=== PATIENT | male | born 1970 | race Caucasian/White ===

== ENCOUNTER 2025-03-05 12:49 | Emergency (ER) | payer MEDICARE, SELFPAY ==
--- NOTE | ~2025-03-05 | XR_ITS ---
EXAMINATION: XR chest 2V 03/05/2025 13:28 INDICATION: Cough. Shortness of breath. Crackles COMPARISON: None FINDINGS: Cardiomediastinal silhouette is moderately enlarged. No pneumothorax. No pleural effusion. No free air under the diaphragm. No focal pulmonary consolidation. Interstitial opacities in both lungs. IMPRESSION: 1: Interstitial opacities in both lungs. Differential includes interstitial edema, interstitial pneumonia or chronic interstitial changes. No comparison studies are available. Reviewed, dictated and finalized at location A. IMPRESSION: 1: Interstitial opacities in both lungs. Differential includes interstitial ed radha, interstitial pneumonia or chronic interstitial changes. No comparison stud ies are available.
[2025-03-05 13:04] VITALS: BP 150/100; PULSE 103; RESP 20; TEMP 36.4; O2SAT 96
--- NOTE | 2025-03-05 13:08 | ED_ITS ---
HPI - SOB/Dyspnea General Chief Complaint: Upper Respiratory Infection Stated Complaint: Coughing/Sweaty/SOB Time Seen by Provider: 03/05/25 12:50 Source: patient Mode of arrival: ambulatory Limitations: no limitations History of Present Illness HPI Narrative: Glen is a 54-year-old developmentally disabled male patient presenting to the clinic today with complaints of productive cough with white phlegm, shortness of breath, wheezing, and feeling sweaty x 2 days. He reports no fevers or chills. Does have some aching in his stomach after coughing up phlegm. Does have swelling in bilateral lower extremities that is not normal for him. No history of COPD, asthma, or lung disease. States he thought he had a hole in his heart when he was a baby but no other cardiac history. He is a nonsmoker. Related Data Home Medications ?Medication ?Instructions ?Recorded ?Confirmed ?Last Taken ?Type famotidine 40 mg tablet mg 03/05/25 Unknown History metoprolol tartrate .ROUTE 03/05/25 Unknown His tory Allergies Allergy/AdvReac Type Severity Reaction Status Date / Time Sulfa (Sulfonamide Allergy Unknown Unknown Verified 03/05/25 13:09 Antibiotics) Review of Systems Review of Systems: Pertinent positives per HPI. Patient denies any fever, chills, rash, headache, visual changes, dizziness, chest pain, palpitations, nausea, vomiting, diarrhea, constipation, abdominal pain, or any urinary issues. PMFSH Comments At the time of my signature, I reviewed and agree with the nursing past medical, surgical, social, and family history. There is no relevant family history pertinent to the patient complaint. Exam Narrative: General: Well-developed, morbidly obese, in mild respiratory distress-able to speak 5-6 words in between breaths. Audible wheezing Head: Normocephalic, atraumatic Eyes: Pupils equally round and reactive to light bilaterally, EOM intact, sclera and conjunctive clear, no discharge, lids normal Ears: TMs intact and clear, ear canals clear, no drainage, grossly hearing normal. Nose: Nares patent, no discharge, no inflammation, no sinus tenderness. Mouth: Oral pharynx without lesions or masses, good dentition, MMM. Neck: Supple, trachea midline, no enlargement of anterior or posterior cervical nodes, no thyroid masses or goiter palpable. Cardio: Regular rate and rhythm, s1 and s2 normal, no murmur appreciated. Resp: Expiratory wheezing with inspiratory crackles throughout lung mercado, no rhonchi or rubs Musculoskeletal: No deformity, non-tender to palpation, grossly normal range of motion, muscle strength strong and equal, peripheral pulse strong, 2+ pitting edema in bilateral lower extremities, no cyanosis, normal gait and station Course Course Emergency Course: Portions of this record may have been created with voice recognition software. Level of Care: Express Care Visit Vital Signs Vital signs: Vital Signs Temperature 36.4 C 03/05/25 13:04 Pulse Rate 103 H 03/05/25 13:04 Respiratory Rate 20 03/05/25 13:04 Blood Pressure 150/100 H 03/05/25 13:04 Pulse Oximetry 96 03/05/25 13:04 Oxygen Delivery Room Air 03/05/25 13:04 Temperature 36.4 C 03/05/25 13:04 Pulse Rate 103 H 03/05/25 13:04 Respiratory Rate 20 03/05/25 13:04 Blood Pressure 150/100 H 03/05/25 13:04 Pulse Oximetry 96 03/05/25 13:04 Oxygen Delivery Room Air 03/05/25 13:04 Vital signs reviewed Transfer Transfered to: [facility] Transportation: Other (Private car) Transfer rationale: Shortness of breath, wheezing, crackles, bilateral lower extremity 2+ pitting edema-rule out congestive heart failure Accepting physician: Lamont Transfer comments: Transfer via private car MDM - SOB/Dyspnea MDM Narrative Medical decision making narrative: At the time of visit patient is resting comfortably on the exam table. Patient appears to be nontoxic. Complaints of productive cough with white phlegm, shortness of breath, wheezing, and feeling sweaty x 2 days. He reports no fevers or chills. Does have some aching in his stomach after coughing up phlegm. Does have swelling in bilateral lower extremities that is not normal for him. No history of COPD, asthma, or lung disease. States he thought he had a hole in his heart when he was a baby but no other cardiac history. He is a no nsmoker. COVID, influenza, chest x-ray, and hand-held neb treatment-DuoNeb ordered. On exam patient has inspiratory crackles and expiratory wheezing with productive cough with white phlegm. He is afebrile. Oxygen saturations 96% on room air-patient is able to speak 5-6 words in between taking breaths, has 2+ pitting edema in the bilateral lower extremities. Medications: Hand-held neb treatment DuoNeb given-aeration improved and patient reports breathing is easier after treatment Labs: COVID and influenza testing will were negative in the clinic today Diagnostics: Chest x-ray shows interstitial opacities in both lungs with differentials including interstitial edema, interstitial pneumonia, or chronic interstitial changes. Plan: I suspect patient likely has acute onset congestive heart failure. Patient has no lung disease history or known cardiac history other than possible hole in the heart when he was an . Recommend transfer to the emergency room for further evaluation. Patient would like to go to [facility]. Patient's brothers at bedside and will take him to [facility] via private car. Report called to Kim JULIAN at [facility] and she accepts patient for transfer. Patient's vital signs heart rate 96 and respiratory rate 24 with a oxygen saturation of 96% on room air. Will allow patient to go by private car. Differential Diagnosis Differential diagnosis: Likely acute exacerbation of chronic obstructive airways disease, congestive heart failure, community acquired pneumonia, asthma with e xacerbation and pulmonary embolism Lab Data Labs: Lab Results 03/05/25 Range/Units 13:14 POC Influenza A Ag Negative (Negative) POC Influenza B Ag Negative (Negative) POC SARS CoV-2 Ag Negative (Negative) Imaging Data Radiologist's impression: ITS Impressions Chest X-Ray 03/05/25 13:29 IMPRESSION: 1: Interstitial opacities in both lungs. Differential includes interstitial edema, interstitial pneumonia or chronic interstitial changes. No comparison studies are available. Discharge Plan Discharge Clinical Impression: Bilateral leg edema, Shortness of breath Patient Disposition: Acute Care Hospital Condition: Stable Patient Language: Tunisian Prescriptions: No Action famotidine 40 mg tablet metoprolol tartrate [Lopressor] .ROUTE Follow-up/Referrals: Shimon,Rola Holt MD [Primary Care Provider, Unknown] Time of Disposition: 14:00 Quality NIHSS Nursing Documentation ED NIHSS nursing documentation: reviewed/agree
--- OUTSIDE RECORDS SUMMARY | 2025-03-05 13:09 | XMS_ITS | Clinical Summary ---
Author Organization [facility] [address] Address [address] [place] [address] Care Team Providers Care Dealer Card Room Name Role Phone Cj Cardenas MD Primary Care Provider Allergies No known active allergies Medications losartan (COZAAR) 100 mg tablet Take 150 mg by mouth daily Active Active Problems Problem Noted Date Diagnosed Date Conductive hearing loss, bilateral 01/25/2019 Assessment & Plan (01/26/2019 8:28 AM CDT): Medically cleared for Hearing aid consultation Bilateral impacted cerumen 01/25/2019 Assessment & Plan (01/26/2019 8:28 AM CDT): Avoid ear cleaning techniques Avoid water to ears Medical History Medical History Date Comments Ear problems Tubes in childho od, problems since childhood Sleep apnea Social History Tobacco Use Types Packs/Day Years Used Date Smoking Tobacco: Never Smokeless Tobacco: Never Alcohol Use Standard Drinks/Week Comments Never 0 (1 standard drink = 0.6 oz pur e alcohol) AUDIT-C Answer Date Recorded Frequency of Alcohol Consumption Never 01/25/2019 Average Number of Drinks Not on file 019 Frequency of Binge Drinking Not on file 01/15 Personal Safety Answer Date Recorded Getting School Help Needed Not on file 09/30 Sex and Gender Information Value Date Recorded Sex Assigned at Not on file Legal Sex Male 12:23 PM [employer] Gender Identity Not on file Sexual Orientation Not on file Obstetrics History Last Filed Vital Signs Vital Sign Reading Time Taken Comments Blood Pressure 155/98 01/25/2019 1:23 PM CDT Pulse 99 01/25/2019 1:23 PM CDT Temperature 36.7 C (98.1 F) 01/25/2019 1:23 PM CDT Respiratory Rate - - Oxygen Saturation - - Inhaled Oxygen Concentration - - Weight 145.8 kg (321 lb 6.4 oz) 01/25/2019 1:23 PM CDT Height 167.6 cm (5' 6) 01/25/2019 1:23 PM CDT Body Mass Index 51.88 01/25/2019 1:23 PM CDT Plan of Treatment Not on file Insurance MEDICARE Care Teams Dealer Card Room Relationship Specialty Start Date End Date Cj Cardenas MD PCP - General Family Medicine 01/25/19
[2025-03-05] MEDS: IPRATROPIUM 0.5 MG/ALBUTEROL SULFATE 2.5 MG AMPUL.NEB 3 ML INHALATION (13:30)
[2025-03-05 13:32] LABS: EDCOVIDSCREEN Negative (Negative); EDINFLUASCREEN Negative (Negative); EDINFLUBSCREEN Negative (Negative)
[2025-03-05 13:39] VITALS: PULSE 96; RESP 24; O2SAT 96
== END 2025-03-05 13:57 | disposition short-term general hospital (02) ==
PROVIDERS: Emergency Provider Nurse Practitioner Family; PCP Family Medicine
DX: R60.0 Localized edema (principal); R06.02 Shortness of breath; Z20.822 Contact with and (suspected) exposure to COVID-19; I10 Essential (primary) hypertension; K21.9 Gastro-esophageal reflux disease without esophagitis
CPT/HCPCS: 71046; 87426; 87804; 94640; 99213; G0463

== ENCOUNTER 2025-03-05 15:33 | Inpatient (IN) | payer MEDICARE, SELFPAY ==
[2025-03-05] VITALS (34 sets, daily range): BP systolic 132–176; BP diastolic 80–136; PULSE 84–109; RESP 18–29; TEMP 36.8–37.1; O2SAT 91–100; BMI 46.9
--- NOTE | ~2025-03-05 | US_ITS ---
EXAMINATION: US Abdomen limited INDICATION: Elevated LFTs PROCEDURE: Realtime High Resolution abdomen ultrasound. COMPARISON: No prior studies for comparison FINDINGS: This study is limited due to the patient's imaging characteristics. The visualized liver is heterogeneous likely due to fatty infiltration and/or hepatocellular disease. Hepatopedal flow in the portal vein. Visualized gallbladder is unremarkable. No gallbladder wall thickening. No Fletcher's sign. Common duct measures 4 mm. The liver is heterogeneous likely due to fatty infiltration. Pancreas was not visualized. IMPRESSION: 1. Limited study as above. 2. The visualized liver is heterogeneous likely due to fatty infiltration or hepatocellular disease. Consider a liver mass CT or MRI for further assessment. Reviewed, dictated and finalized at location A. IMPRESSION: 1. Limited study as above. 2. The visualized liver is heterogeneous likely due to fatty infiltration or he patocellular disease. Consider a liver mass CT or MRI for further assessment.
--- NOTE | ~2025-03-05 | MR_ITS ---
EXAMINATION: MR abdomen wo/w con DATE: 03/09/2025 13:31 INDICATION: Possible liver mass TECHNIQUE: Magnetic resonance imaging (MRI) of the abdomen was performed without and with 20 mL Multihance intravenous contrast. Sequences included coronal T2- weighted SS-FSE, coronal and axial FS 2D-FIESTA, axial STIR FSE, axial T2- weighted SS-FSE, axial T2-weighted FS SS-FSE, axial diffusion-weighted SE, axial dual-echo T1-weighted FSPGR, and axial and coronal T1-weighted LAVA. Postcontrast axial T1-weighted LAVA images were obtained in a time course. Postcontrast coronal T1-weighted LAVA images were obtained. COMPARISON: Ultrasound dated 03/06/2025 FINDINGS: Cardiomegaly. No pericardial or pleural effusion. Hepatic steatosis. No hepatic lesions identified. Gallbladder, spleen, pancreas, bilateral adrenal glands and left kidney are normal. There are couple T2 hyperintense nonenhancing right renal cysts the largest at the lower pole measuring 1.2 cm. Visualized portions of bowels are unremarkable. Moderate thoracic and mild lumbar spondylosis. Normal bone marrow signal throughout. IMPRESSION: 1. Diffuse hepatic steatosis with no hepatic masses or other focal hepatic lesions identified. Reviewed, dictated and finalized at location A. IMPRESSION: 1. Diffuse hepatic steatosis with no hepatic masses or other focal hepatic lesi ons identified.
--- OUTSIDE RECORDS SUMMARY | 2025-03-05 15:57 | XMS_ITS | Clinical Summary ---
Author Organization [facility] Medical Office Building [address] Address [address] [place] [address] Care Team Providers Care Consulting Analyst Name Role Phone Cj Cardenas MD Primary [...] on file Legal Sex Male 12:23 PM [employer] Gender Identity Not on file Sexual Orientation [...] Not on file Insurance MEDICARE Care Teams Consulting Analyst Relationship Specialty Start Date End Date Cj Cardenas MD PCP - General Family Medicine 01/25/19
--- OUTSIDE RECORDS SUMMARY | 2025-03-05 15:57 | XMS_ITS | Clinical Summary ---
Author Organization [facility] Address [address] [place] [id number] Care Team Providers Care Superintendent Job Name Role Phone Unavailable Primary Care Provider Unavailabl e Social History Tobacco Use Types Packs/Day Years Used Date Smoking Tobacco: Never Assessed Sex and Gender Information Value Date Recorded Sex Assigned at Not on file Legal Sex Male 8:58 PM CDT Gender Identity Not on file Sexual Orientation Not on file Plan of Treatment Health Maintenance Due Date Last Done Comments Colorectal Cancer Screening Colonoscopy (10 Years) 1969 Annual Physical 1972 Hepatitis C 1987 DTaP, Tdap and Td Vaccines ( 1 - Tdap) 1988 Hepatitis B Vaccines (1 of 3 - 19+ 3-dose series) 1988 Pneumococcal Vaccine: 50+ Ye ars (1 of 1 - PCV) 2019 Zoster Vaccines (1 of 2) 2019 COVID-19 Vaccine (2023-2 5 season) 2024 Meningococcal B Vaccine Aged Out No l onger eligible based on patient's age to complete this topic Meningococcal Vaccine Aged Out No noel naun eligible based on patient's age to complete this topic RSV Immunizations Under 20 Months Aged Out No longer eligible based on patient's age to complete this topic
--- NOTE | 2025-03-05 16:01 | ECG_ITS ---
Test Date: 2025-03-05 16:15:27 Measurements Intervals [place] Rate: 94 P: 60 MT: 194 QRS: -31 QRSD: 88 T: 60 QT: 352 QTc: 442 Interpretive Statements SINUS RHYTHM WITH OCCASIONAL SUPRAVENTRICULAR PREMATURE COMPLEXES LEFT AXIS DEVIATION LOW QRS VOLTAGE IN PRECORDIAL LEADS PATTERN CONSISTENT WITH PULMONARY DISEASE BORDERLINE ST-T WAVE ABNORMALITY- HIGH LATERAL LEADS BASELINE ARTIFACT- I, II, III, AVR, AVL, AVF, V2 BORDERLINE ECG No previous ECG available for comparison Electronically Signed On 03-05-2025 16:56:57 CDT by Jaylen Thornton D.O.
[2025-03-05 17:03] LABS: Hematocrit 47.4 % (42.0-52.0); Hemoglobin 15.3 g/dL (14.0-18.0); Immature Granulocyte Percent A 0.3 % (0-0.5); Lymphocytes Absolute Auto 0.86 K/mm3 (0.9-3.2); Mean Corpuscular HGB Conc 32.3 g/dl (32-36); Mean Corpuscular Hemoglobin 29.0 pg (26-34); Mean Corpuscular Volume 89.8 fl (80-100); Nucleated Red Blood Cells Absolute Auto 0.000 K/mm3 (0.0-0.012); Nucleated Red Blood Cells Perc 0.0 % (0.0-0.2); Platelet Count Result 196 k/mm3 (150-375); Red Blood Count 5.28 M/mm3 (4.6-6.20); White Blood Count 6.7 K/mm3 (4.5-10.0)
[2025-03-05 17:15] LABS: Alanine Aminotransferase 59 U/L (6-50); Albumin Level 4.0 g/dL (3.5-5.1); Alkaline Phosphatase 65 U/L (38-126); Anion Gap 6 mmol/L (4-12); Aspartate Amino Transferase 50 U/L (17-59); Bilirubin,Total 0.7 mg/dL (0.2-1.3); Blood Urea Nitrogen 16 mg/dL (9-20); Calcium 8.7 mg/dL (8.4-10.2); Carbon Dioxide 28 mmol/L (22-30); Chloride 102 mmol/L (98-107); Estimated CRCL calculation 124 ml/min; Estimated Glomerular Filt Rate > 60; Glucose 130 mg/dL (65-110); Potassium 4.1 mmol/L (3.4-5.0); Sodium 136 mmol/L (137-145); Total Protein 7.6 g/dL (6.3-8.2)
[2025-03-05 17:21] LABS: INR 1.1; Partial Thromboplastin Time 25.3 Seconds (22.3-36.8); Prothrombin Time 14.0 Seconds (11.1-14.7)
--- NOTE | 2025-03-05 17:55 | ED.SOB ---
HPI - SOB/Dyspnea General Chief Complaint: Shortness of Breath/Dyspnea Stated Complaint: SOB Time Seen by Provider: 03/05/25 16:10 History of Present Illness HPI Narrative: This is a 54-year-old male with history of hypertension, CHF who presents to the ED for shortness of breath. Patient states that for the past 3-4 days, he has been having worsening dyspnea on exertion. He states that the stairs that he walks every day multiple times a day becoming increasingly difficult to the point where he has had to stop transient sweat and out of breath. Family at bedside states that they noticed that his lips became cyanotic during this as well. Denies fevers, chills, chest pain. Also noticed some worsening bilateral leg swelling. Patient is a nonsmoker. Related Data Home Medications ?Medication ?Instructions ?Recorded ?Confirmed ?Last Taken ?Type famotidine 40 mg tablet mg 03/05/25 Unknown History metoprolol tartrate .ROUTE 03/05/25 Unknown History Allergies Allergy/AdvReac Type Severity Reaction Status Date / Time Sulfa (Sulfonamide Allergy Unknown Unknown Verified 03/05/25 13:09 Antibiotics) Review of Systems Review of Systems: Gen.: Denies fevers or chills Eyes: Denies eye pain or visual change ENT: Denies congestion Respiratory: As per HPI CV: Denies chest pain or palpitations GI: Denies abdominal pain nausea, emesis or diarrhea denies burning, urgency, frequency or hematuria Musculoskeletal: Denies back pain or muscle pain Neuro: Denies numbness, tingling, weakness or focal weakness Skin: Denies rash Except as documented, all other systems reviewed and negative Exam Narrative: APPEARANCE: No acute distress, nontoxic, resting in bed EYES: EOMI HEENT: Normocephalic, atraumatic, OMM RESPIRATORY: Expiratory wheezes throughout, diminished breath sounds on the right compared to the left. CARDIOVASCULAR: Regular rate and rhythm without murmurs rubs or gallops. ABDOMINAL: Soft, nontender, nondistended, no rebound or guarding MUSCULOSKELETAl: Moves all extremities. 2+ pitting edema to the bilateral lower extremities. NEURO: Awake and alert. Following commands, speech normal, no focal deficits SKIN:: Warm, dry. No rashes lesions or abrasions PSYCHIATRIC: Normal affect/mood, Course Vital Signs Vital signs: Vital Signs Temperature 98.7 F 03/05/25 15:43 Pulse Rate 101 H 03/05/25 15:43 Respiratory Rate 20 03/05/25 15:43 Blood Pressure 163/97 H 03/05/25 15:43 Pulse Oximetry 98 03/05/25 15:43 Oxygen Delivery Room Air 03/05/25 15:43 Temperature 98.3 F 03/05/25 20:43 Pulse Rate 91 03/05/25 20:43 Respiratory Rate 23 H 03/05/25 20:43 Blood Pressure 153/85 H 03/05/25 20:43 Pulse Oximetry 94 03/05/25 20:43 Oxygen Delivery Room Air 03/05/25 16:16 MDM - SOB/Dyspnea MDM Narrative Medical decision making narrative: 54-year-old male presents to the ED for shortness of breath. On initial evaluation, he was slightly tachycardic at 101, remaining vital signs stable he had significant wheezing throughout. He did have 2+ pitting edema. Chest x-ray showed pulmonary vascular congestion. BNP elevated 2400. He was given 40 mg Lasix IV. He was given a DuoNeb with improvement of his wheezing. EKG showed no concerning findings. Patient was ambulated and his pulse ox did drop to 92. Initial troponin elevated at 0.09. He will require admission for further cardiac evaluation. Discussed case with hospitalist who will admit the patient. Differential Diagnosis Differential diagnosis: Likely congestive heart failure, community acquired pneumonia and asthma with exacerbation Lab Data Attestation: I reviewed the patient's lab results. 03/05/25 16:19 03/05/25 16:19 Labs: Lab Results 03/05/25 03/05/25 03/05/25 Range/Units 16:19 16:19 20:27 WBC 6.7 (4.5-10.0) K/mm3 RBC 5.28 (4.6-6.20) M/mm3 Hgb 15.3 (14.0-18.0) g/dL Hct 47.4 (42.0-52.0) % MCV 89.8 (80-100) fl MCH 29.0 (26-34) pg MCHC 32.3 (32-36) g/dl RDW 14.9 H (11.5-14.5) % Plt Count 196 (150-375) k/mm3 MPV 10.6 H (7.4-10.4) fl Immature Gran % (Auto) 0.3 (0-0.5) % Neut % (Auto) 76.2 H (45.5-73.1) % Lymph % (Auto) 12.8 L (18.3-44.2) % [place] % (Auto) 9.7 H (2.6-8.5) % Eos % (Auto) 0.6 (0-4.4) % Baso % (Auto) 0.4 (0.2-1.2) % Lymph # (Auto) 0.86 L (0.9-3.2) K/mm3 [place] # (Auto) 0.7 H (0.1-0.6) K/mm3 Eos # (Auto) 0.0 (0-0.3) K/mm3 Baso # (Auto) 0.0 (0.0-0.1) K/mm3 Abs Immat Gran (auto) 0.02 (0.00-0.031) K/mm3 Absolute Neuts (auto) 5.1 (1.3-6.7) K/mm3 Absolute Nucleated RBC 0.000 (0.0-0.012) K/mm3 Nucleated RBC % 0.0 (0.0-0.2) % PT 14.0 (11.1-14.7) Seconds INR 1.1 APTT 25.3 (22.3-36.8) Seconds Sodium 136 L (137-145) mmol/L Potassium 4.1 (3.4-5.0) mmol/L Chloride 102 (98-107) mmol/L Carbon Dioxide 28 (22-30) mmol/L Anion Gap 6 (4-12) mmol/L BUN 16 (9-20) mg/dL Creatinine 0.83 (0.7-1.3) mg/dL Estim Creat Clear Calc 124 ml/min Estimated GFR > 60 (59 - ) Glucose 130 H (65-110) mg/dL Calcium 8.7 (8.4-10.2) mg/dL Total Bilirubin 0.7 (0.2-1.3) mg/dL AST 50 (17-59) U/L ALT 59 H (6-50) U/L Alkaline Phosphatase 65 (38-126) U/L Troponin I 0.098 H* 0.119 H* D (0.000-0.034) ng/mL NT-Pro-B Natriuret Pep 2430 H Cancelled (19.9-100) pg/mL Total Protein 7.6 (6.3-8.2) g/dL Albumin 4.0 (3.5-5.1) g/dL ECG Data EKG #1: ECG completion date: 03/05/25 ECG completion time: 16:15 Interpretation: Normal sinus rhythm rate of 94, left axis deviation, no ST or T-wave changes. Discharge Plan Discharge Clinical Impression: Acute hypoxic respiratory failure, Elevated troponin, Morbid obesity CHF (congestive heart failure) Qualifiers: Heart failure type: unspecified Heart failure chronicity: unspecified Qualified Code(s): I50.9 - Heart failure, unspecified Patient Disposition: Still a Patient Condition: Stable
[2025-03-05 18:02] LABS: NT Pro B Type Natriuretic Pept 2430 pg/mL (19.9-100)
[2025-03-05] MEDS: IPRATROPIUM 0.5 MG/ALBUTEROL SULFATE 2.5 MG AMPUL.NEB 3 ML INHALATION (18:04)
[2025-03-05] MEDS: FUROSEMIDE INJ 40 MG/4 ML VIAL IV PUSH (18:56)
--- NOTE | 2025-03-05 20:24 | ECG_ITS ---
Test Date: 2025-03-05 20:29:50 Measurements Intervals [place] Rate: 90 P: 36 [place]: 187 QRS: -25 QRSD: 85 T: 62 QT: 366 QTc: 450 Interpretive Statements SINUS RHYTHM LOW QRS VOLTAGE IN PRECORDIAL LEADS PATTERN CONSISTENT WITH PULMONARY DISEASE BORDERLINE ST-T WAVE ABNORMALITY- HIGH LATERAL LEADS BORDERLINE ECG Compared to ECG 03/05/2025 16:15:27 NO SIGNIFICANT CHANGE Electronically Signed On 03-06-2025 06:11:41 CDT by Jaylen Thornton D.O.
[2025-03-05 20:28] LABS: Troponin I 0.098 ng/mL (0.000-0.034)
[2025-03-05 20:58] LABS: Troponin I 0.119 ng/mL (0.000-0.034)
[2025-03-05] MEDS: ENOXAPARIN 40 MG/0.4 ML SYRINGE SUB-Q (21:07)
[2025-03-05 21:40] LABS: Influenza A QL RT-PCR Negative (Negative); Influenza B QL RT-PCR Negative (Negative); RSV RNA, RT-PCR Negative (Negative); SARS-CoV-2 RNA PCR Negative (Negative)
--- NOTE | 2025-03-05 22:23 | ADMGEN ---
This patient, Ady Gr, was admitted to IMU Room 201-01 at 2205. Patient/family oriented to hospital policies and general routines including ID bracelet, bed and alarms, visiting hours, pain management, procedures, bathroom and other care routines, personal items, smoking policy, room service/diet, and visiting hours. Information on how to activate the Rapid Response Team has been discussed. Patient/Family are encouraged to report perceived risks to care and to ask questions if they do not understand what they are told or what they should do.
[2025-03-05 23:54] LABS: Troponin I 0.120 ng/mL (0.000-0.034)
[2025-03-06] VITALS (26 sets, daily range): BP systolic 116–156; BP diastolic 71–88; PULSE 67–98; RESP 17–24; TEMP 36.4–37.4; O2SAT 92–97
--- NOTE | 2025-03-06 | ECHO_ITS ---
Patient Info Name: Ady Gr Age: 54 years : 1970 Gender: Male Ht: 68 in Wt: 307 lbs BSA: 2.66 m2 HR: 88 bpm BP: 156 / 88 mmHg Technical Quality: Good Exam Date: 03/06/2025 8:36 AM Patient Status: I Admit Date: 03/05/2025 Exam Type: CA echo dop color flow w con Complete two-dimensional, color flow and Doppler transthoracic echocardiogram is performed with contrast to opacify the left ventricle and to improve the deliniation of the left ventricle endocardial borders. Staff Referring Physician: Dat Rodriguez MD Trench Digging Machine Operator: Samara Browning Attending Provider: Alma Rosa Isabel DO Contrast/Agitated Saline Contrast/Ag. Saline: Definity Amount: 2.00 ml Administered By: Samara Browning Existing IV Access: Yes IV Access Condition: patent with no signs of infiltration Summary 1. Left ventricular systolic function is normal, estimated at 45%. 2. technically difficult study. Left Ventricle Left ventricular chamber dimension is normal. Left ventricular systolic function is normal, estimated at 45%. There is no increased left ventricular wall thickness. Left ventricular septal wall motion is normal. The left ventricular diastolic function is abnormal. Right Ventricle Right ventricular chamber dimension is normal. Right ventricular systolic function is normal. Left Atria Left atrial chamber dimension is normal. Right Atria Right atrial chamber dimension is normal. Aortic Valve The aortic valve is trileaflet. There is no aortic valve sclerosis. There is no aortic valve stenosis. There is no aortic valve regurgitation. Pulmonic Valve The pulmonic valve is normal. There is no pulmonic valve stenosis. There is no pulmonic regurgitation. Mitral Valve The mitral valve has normal leaflets. There is no mitral valve stenosis. There is no mitral valve regurgitation. Tricuspid Valve The tricuspid valve leaflets are normal. There is no significant tricuspid valve stenosis. There is no tricuspid valve regurgitation. Pericardium/Pleural The pericardium appears normal. There is no pericardial effusion. Inferior Vena Cava Not well visualized inferior vena cava. Aorta The aortic root size at the sinus of Valsalva is normal. The prox ascending aorta size is normal. Left Ventricular Outflow Tract Name Value Normal LVOT 2D LVOT Diameter 2.0 cm LVOT Doppler LVOT Peak Velocity 94 cm/s LVOT Peak Gradient 4 mmHg LVOT Mean Gradient 2 mmHg LVOT VTI 21 cm LVOT Stroke Volume 67 ml LVOT CO 5.9 l/min LVOT CI 2.2 l/min/m2 Pulmonic Valve Name Value Normal RVOT Doppler RVOT Peak Velocity 70 cm/s RVOT Peak Gradient 2 mmHg PV Doppler PV Peak Velocity 97 cm/s PV Peak Gradient 4 mmHg Mitral Valve Name Value Normal MV Diastolic Function MV E Peak Velocity 74 cm/s MV A Peak Velocity 81 cm/s MV E/A 0.9 MV Decel Time (PW) 280 ms MV Annular TDI MV E/e' (Septal) 6.6 MV E/e' (Lateral) 8.3 MV E/e' (Average) 7.5 Aortic Valve Name Value Normal AV Doppler AV Peak Velocity 147 cm/s AV Peak Gradient 9 mmHg AV Area (Cont Eq Eirk) 2.1 cm2 AV DI (Erik) 0.64 AV Regurgitation 2D LVOT Area 3.2 cm2 Ventricles Name Value Normal LV Dimensions 2D/MM IVS Diastolic Thickness (2D) 0.9 cm 0.6-1.0 LVID Diastole (2D) 5.6 cm 4.2-5.8 LVIW Diastolic Thickness (2D) 1.2 cm 0.6-1.0 LVID Systole (2D) 4.4 cm 2.5-4.0 LVOT Diameter 2.0 cm LV Mass (2D Cubed) 229.18 g 88.00-224.00 LV Mass Index (2D Cubed) 86 g/m2 49-115 Relative Wall Thickness (2D) 0.41 <=0.42 LV Fractional Shortening/Ejection Fraction 2D/MM LV Fractional Shortening (2D) 20 % 25-43 LV EF (2D Teichholz) 41 % LV Diastolic Volume (4C MOD) 161 ml LV EF (4C MOD) 47 % LV Diastolic Volume (2C MOD) 139 ml LV EF (2C MOD) 46 % LV Diastolic Volume (BP MOD) 152 ml 62-150 LV Diastolic Volume Index (BP MOD) 57 ml/m2 34-74 LV Systolic Volume (BP MOD) 82 ml 21-61 LV Systolic Volume Index (BP MOD) 31 ml/m2 11-31 LV EF (BP MOD) 46 % 52-72 LV Diastolic Length (4C) 8.6 cm LV Systolic Length (4C) 7.4 cm LV Stroke Volume (4C MOD) 76 ml Atria Name Value Normal LA Dimensions LA Volume (4C A-L) 49 ml LA Volume (BP A-L) 37 ml RA Dimensions RA Systolic Major [place] Length (4C) 4.3 cm 2.1-2.7 RA Area (4C) 13.6 cm2 <=18.0 Report Signatures
[2025-03-06 03:50] LABS: Anion Gap 5 mmol/L (4-12); Blood Urea Nitrogen 17 mg/dL (9-20); Calcium 8.5 mg/dL (8.4-10.2); Carbon Dioxide 31 mmol/L (22-30); Chloride 101 mmol/L (98-107); Estimated CRCL calculation 103 ml/min; Estimated Glomerular Filt Rate > 60; Glucose 127 mg/dL (65-110); HDL Direct 35 mg/dL; Magnesium 2.2 mg/dL (1.6-2.3); Potassium 3.9 mmol/L (3.4-5.0); Sodium 137 mmol/L (137-145); Triglycerides 151 mg/dL (<150)
[2025-03-06 04:21] LABS: Thyroid Stimulating Hormone Reflex 2.290 uIU/mL (0.465-4.68)
[2025-03-06 04:40] LABS: Cholesterol 339 mg/dL (0-200)
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
[2025-03-06] MEDS: ASPIRIN 81 MG CHEWABLE TABLET PO (09:24)
[2025-03-06] MEDS: LOSARTAN POTASSIUM 100 MG TABLET PO (09:25)
[2025-03-06] MEDS: FAMOTIDINE 20 MG TABLET 40 MG PO (09:25)
[2025-03-06] MEDS: ENOXAPARIN 40 MG/0.4 ML SYRINGE SUB-Q ×2 (09:26→20:30)
[2025-03-06] MEDS: FUROSEMIDE INJ 40 MG/4 ML VIAL IV PUSH ×2 (09:35→17:28)
[2025-03-06] MEDS: IPRATROPIUM 0.5 MG/ALBUTEROL SULFATE 2.5 MG AMPUL.NEB 3 ML INHALATION ×3 (10:13→19:55)
[2025-03-06] MEDS: PERFLUTREN LIPID MICROSPHERES 1.5 ML VIAL DILUTED TO 10 ML TOTAL VOLUME IV PUSH (10:49)
--- NOTE | 2025-03-06 10:49 | IVDEFINITY ---
Prior to administration of IV Definity the patient was educated on the risks and benefits of the imaging enhancing agent including potential adverse side effects. The patient verbalized understanding. Allergies were verified. No exclusion criteria were identified and at least one of the following inclusion criteria were met: 1) physician request, 2) patient technically difficult to image (per the [place] [employer] guidelines of two or more segments not discernable within the apical view), or 3) questionable left ventricular function. ?
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
[2025-03-07] VITALS (28 sets, daily range): BP systolic 106–154; BP diastolic 63–99; PULSE 60–119; RESP 16–29; TEMP 36.4–36.8; O2SAT 92–98
--- NOTE | 2025-03-07 03:17 | ECG_ITS ---
Test Date: 2025-03-07 03:23:43 Measurements Intervals [place] Rate: 119 P: 0 IA: 0 QRS: -25 QRSD: 89 T: 52 QT: 327 QTc: 461 Interpretive Statements ATRIAL FIBRILLATION WITH RAPID VENTRICULAR RESPONSE LOW QRS VOLTAGE IN PRECORDIAL LEADS PATTERN CONSISTENT WITH PULMONARY DISEASE NONSPECIFIC ST-T WAVE ABNORMALITY- HIGH LATERAL LEADS BASELINE ARTIFACT- I, II, III, AVR, AVL, AVF ABNORMAL ECG Compared to ECG 03/05/2025 20:29:50 Sinus rhythm no longer present Electronically Signed On 03-07-2025 05:39:05 CDT by Jaylen Thornton D.O.
--- NOTE | 2025-03-07 03:29 | PM.EVENT ---
Event Note Event Note Event Note: I am notified by RN that pt has developed findings of A-fib, confirmed by EKG. Pt has no known hx of A-fib. He is currently anticoagulated on Lovenox and new consult for Cardiology is placed as well as initiation of Metoprolol Succinate 25 mg daily with first dose now.
[2025-03-07] MEDS: METOPROLOL SUCCINATE EXT REL 25 MG TABCR PO (03:40)
[2025-03-07 04:01] LABS: Hematocrit 48.2 % (42.0-52.0); Hemoglobin 14.7 g/dL (14.0-18.0); Mean Corpuscular HGB Conc 30.5 g/dl (32-36); Mean Corpuscular Hemoglobin 28.1 pg (26-34); Mean Corpuscular Volume 92.0 fl (80-100); Platelet Count Result 157 k/mm3 (150-375); Red Blood Count 5.24 M/mm3 (4.6-6.20); White Blood Count 7.0 K/mm3 (4.5-10.0)
[2025-03-07 04:34] LABS: Anion Gap 6 mmol/L (4-12); Blood Urea Nitrogen 21 mg/dL (9-20); Calcium 8.5 mg/dL (8.4-10.2); Carbon Dioxide 27 mmol/L (22-30); Chloride 99 mmol/L (98-107); Estimated CRCL calculation 100 ml/min; Estimated Glomerular Filt Rate > 60; Glucose 107 mg/dL (65-110); Magnesium 2.6 mg/dL (1.6-2.3); Potassium 4.1 mmol/L (3.4-5.0); Sodium 132 mmol/L (137-145)
[2025-03-07] MEDS: IPRATROPIUM 0.5 MG/ALBUTEROL SULFATE 2.5 MG AMPUL.NEB 3 ML INHALATION ×3 (07:54→20:04)
[2025-03-07] MEDS: ASPIRIN 81 MG CHEWABLE TABLET PO (09:39)
[2025-03-07] MEDS: FUROSEMIDE INJ 40 MG/4 ML VIAL IV PUSH ×2 (09:39→16:41)
[2025-03-07] MEDS: LOSARTAN POTASSIUM 100 MG TABLET PO (09:39)
[2025-03-07] MEDS: FAMOTIDINE 20 MG TABLET 40 MG PO (09:39)
[2025-03-07] MEDS: ENOXAPARIN 40 MG/0.4 ML SYRINGE SUB-Q (09:39)
--- NOTE | 2025-03-07 10:06 | P.CONCA_ITS ---
Assessment and Plan Assessment and plan (1) Atrial fibrillation: Code(s): I48.91 - Unspecified atrial fibrillation Status: Acute Plan [place] 54-year-old male with a past medical history of intellectual disability, morbid obesity, obstructive sleep apnea with CPAP, GERD and essential hypertension 1. HTN 2. PAF/Flutter --- CHADSVASC 2 3. Morbid Obesity 4. ALETHA - Continue Toprol-Xl at the current dose - Echo to assess LV/RV size and function - Consider therapeutic anticoagulation switch to a DOAC - Continue current diuresis, difficult to assess intravascular status. Will diurese based on IVC size on echo and renal labs History of Present Illness History of Present Illness Consult date/time: 03/07/25 10:06 Reason For Visit: CHF, Elevated troponin Narrative: Ms Ady Gr is a [place] 54-year-old male with a past medical history of intellectual disability, morbid obesity, obstructive sleep apnea with CPAP, GERD and essential hypertension. he is admitted with suspected bronchitis/CHF/ Cardiology consulted for new onset afib. he was started on beta kong Currently in NSR at the time of my evaluation Review of Systems 2 Review of Systems: 12 systems were reviewed with pertinent positives and negatives per HPI. Except as documented in the HPI, all other systems were reviewed and are negative. 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 Morbid obesity with BMI of 45.0-49.9, adult Surgical History Surgical History (Updated 03/06/25 @ 09:14 by Alma Rosa Isabel DO) History of ear surgery Tubes bilaterally years Family History Family History Father Myocardial infarct Mother Cancer Social History Social History Smoking status: Never smoker Alcohol intake: never Substance use: never Lack of Transportation: No Lack of Food: Never True Current Housing: I Have Housing Concerned About Future Housing: No Difficulty Paying Gas/Electric Bills: No Difficulty Paying for Meds: No Currently Unemployed: No Education: High School Diploma/GED Difficulty w/ Childcare or Family Care: No Spiritual care concerns: No Meds Home Medications and Allergies Home Medications ?Medication ?Instructions ?Recorded ?Confirmed ?Type famotidine 40 mg tablet 40 mg PO DAILY 03/05/2502/15 History losartan 100 mg tablet 100 mg PO DAILY 03/05/25 History Allergies Allergy/AdvReac Type Severity Reaction Status Date / Time Sulfa (Sulfonamide Allergy Unknown Unknown Verified 03/05/25 22:37 Antibiotics) Vital Signs Vital Signs - 24 hr 03/06/25 10:13 03/06/25 10:20 03/06/25 12:00 Temperature 36.9 C Pulse Rate 71 86 86 Respiratory Rate 24 H 24 H 24 H Blood Pressure 148/86 H Pulse Oximetry 93 Oxygen Delivery Fraction of Inspired Oxygen 03/06/25 12:00 03/06/25 12:00 03/06/25 13:24 Temperature Pulse Rate 77 84 Respiratory Rate 20 Blood Pressure Pulse Oximetry Oxygen Delivery Room Air Fraction of Inspired Oxygen 03/06/25 13:34 03/06/25 14:00 03/06/25 16:00 Temperature Pulse Rate 78 96 Respiratory Rate 20 Blood Pressure Pulse Oximetry Oxygen Delivery Room Air Fraction of Inspired Oxygen 03/06/25 16:00 03/06/25 16:00 03/06/25 18:00 Temperature 36.4 C Pulse Rate 97 77 82 Respiratory Rate 22 H Blood Pressure 132/77 Pulse Oximetry 94 Oxygen Delivery Fraction of Inspired Oxygen 03/06/25 19:22 03/06/25 19:55 03/06/25 19:58 Temperature 37.0 C Pulse Rate 88 67 67 Respiratory Rate 17 20 20 Blood Pressure 116/73 Pulse Oximetry 97 95 Oxygen Delivery Room Air Fraction of Inspired Oxygen 03/06/25 20:00 03/06/25 20:04 03/06/25 20:30 Temperature Pulse Rate 77 70 70 Respiratory Rate 20 20 Blood Pressure Pulse Oximetry 95 Oxygen Delivery Room Air Fraction of Inspired Oxygen 03/06/25 22:00 03/06/25 22:23 03/06/25 23:00 Temperature Pulse Rate 87 86 Respiratory Rate 18 Blood Pressure Pulse Oximetry 95 93 Oxygen Delivery Room Air Room Air Fraction of Inspired Oxygen 03/06/25 23:24 03/07/25 00:00 03/07/25 02:00 Temperature 36.9 C Pulse Rate 86 65 75 Respiratory Rate 18 Blood Pressure 131/74 Pulse Oximetry 93 Oxygen Delivery Fraction of Inspired Oxygen 03/07/25 03:30 03/07/25 03:40 03/07/25 03:41 Temperature 36.6 C Pulse Rate 119 H 119 H 119 H Respiratory Rate 20 20 Blood Pressure 152/99 H Pulse Oximetry 93 93 Oxygen Delivery Room Air Fraction of Inspired Oxygen 03/07/25 04:00 03/07/25 05:56 03/07/25 07:52 Temperature Pulse Rate 102 H 89 63 Respiratory Rate 16 Blood Pressure Pulse Oximetry Oxygen Delivery Fraction of Inspired Oxygen 03/07/25 07:55 03/07/25 08:00 03/07/25 08:00 Temperature 36.5 C Pulse Rate 76 Respiratory Rate 22 H Blood Pressure 154/83 H Pulse Oximetry 94 94 Oxygen Delivery Room Air Room Air Fraction of Inspired Oxygen Exam 2 Narrative: Morbidly obese Patient is comfortable, NAD HEENT: eyes are clear and none icteric LUNGS:CTA HEART: RR S1S2 ABD: BS+, Soft and nontender Lower extremities: no edema SKIN: nonjaundiced Neuro: grossly intact. Results Labs and Meds 03/07/25 03:35 03/07/25 03:35 Lab results: CBC 03/07/25 Range/Units 03:35 WBC 7.0 (4.5-10.0) K/mm3 RBC 5.24 (4.6-6.20) M/mm3 Hgb 14.7 (14.0-18.0) g/dL Hct 48.2 (42.0-52.0) % Plt Count 157 (150-375) k/mm3 Comprehensive Metabolic Panel 03/07/25 Range/Units 03:35 Sodium 132 L (137-145) mmol/L Potassium 4.1 (3.4-5.0) mmol/L Chloride 99 (98-107) mmol/L Carbon Dioxide 27 (22-30) mmol/L BUN 21 H (9-20) mg/dL Creatinine 1.01 (0.7-1.3) mg/dL Glucose 107 (65-110) mg/dL Calcium 8.5 (8.4-10.2) mg/dL Intake and Output 03/06/25 03/07/25 03/07/25 23:59 07:59 15:59 Intake Total 440 Output Total 150 450 Balance 290 -450 Intake: Oral 440 Output: Urine 150 450 Other: # Unmeasured Voids 2 Number of Bowel Movements Today 1 Patient Weight 03/07/25 23:59 Weight 144 kg
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
[2025-03-07] MEDS: ENOXAPARIN 100 MG/ML SYRINGE SUB-Q (16:38)
[2025-03-07] MEDS: ENOXAPARIN 60 MG/0.6 ML SYRINGE 44 MG SUB-Q (16:38)
[2025-03-07] MEDS: CYCLOBENZAPRINE HCL 5 MG TABLET PO (23:10)
[2025-03-07 23:26] LABS: Anion Gap 7 mmol/L (4-12); Blood Urea Nitrogen 28 mg/dL (9-20); Calcium 8.7 mg/dL (8.4-10.2); Carbon Dioxide 32 mmol/L (22-30); Chloride 97 mmol/L (98-107); Estimated CRCL calculation 87 ml/min; Estimated Glomerular Filt Rate > 60; Glucose 110 mg/dL (65-110); Magnesium 2.1 mg/dL (1.6-2.3); Potassium 3.6 mmol/L (3.4-5.0); Sodium 136 mmol/L (137-145)
[2025-03-08] VITALS (26 sets, daily range): BP systolic 112–147; BP diastolic 71–90; PULSE 60–99; RESP 15–24; TEMP 36.6–37.1; O2SAT 93–100
[2025-03-08 04:13] LABS: Hematocrit 48.2 % (42.0-52.0); Hemoglobin 15.2 g/dL (14.0-18.0); Mean Corpuscular HGB Conc 31.5 g/dl (32-36); Mean Corpuscular Hemoglobin 29.1 pg (26-34); Mean Corpuscular Volume 92.3 fl (80-100); Platelet Count Result 151 k/mm3 (150-375); Red Blood Count 5.22 M/mm3 (4.6-6.20); White Blood Count 6.2 K/mm3 (4.5-10.0)
[2025-03-08 04:25] LABS: Anion Gap 8 mmol/L (4-12); Blood Urea Nitrogen 25 mg/dL (9-20); Calcium 8.5 mg/dL (8.4-10.2); Carbon Dioxide 29 mmol/L (22-30); Chloride 98 mmol/L (98-107); Estimated CRCL calculation 102 ml/min; Estimated Glomerular Filt Rate > 60; Glucose 111 mg/dL (65-110); Magnesium 2.4 mg/dL (1.6-2.3); Potassium 3.8 mmol/L (3.4-5.0); Sodium 135 mmol/L (137-145)
[2025-03-08] MEDS: IPRATROPIUM 0.5 MG/ALBUTEROL SULFATE 2.5 MG AMPUL.NEB 3 ML INHALATION ×3 (07:40→20:04)
[2025-03-08] MEDS: ENOXAPARIN 60 MG/0.6 ML SYRINGE 44 MG SUB-Q (08:44)
[2025-03-08] MEDS: ENOXAPARIN 100 MG/ML SYRINGE SUB-Q (08:44)
[2025-03-08] MEDS: METOPROLOL SUCCINATE EXT REL 25 MG TABCR PO (08:45)
[2025-03-08] MEDS: ASPIRIN 81 MG CHEWABLE TABLET PO (08:45)
[2025-03-08] MEDS: LOSARTAN POTASSIUM 100 MG TABLET PO (08:45)
[2025-03-08] MEDS: FAMOTIDINE 20 MG TABLET 40 MG PO (08:45)
[2025-03-08] MEDS: FUROSEMIDE INJ 40 MG/4 ML VIAL IV PUSH ×2 (08:46→17:56)
--- NOTE | 2025-03-08 10:46 | P.PNCA_ITS ---
<Statement entered by Dylan Michael MD - 03/08/25 14:26> The patient was seen independently by the nurse practitioner. I was available in the hospital if needed Progress Note: A&P Assessment and Plan (1) Atrial fibrillation: Code(s): I48.91 - Unspecified atrial fibrillation Status: Acute Plan Pleasant 54-year-old male with a past medical history of intellectual disability, morbid obesity, obstructive sleep apnea with CPAP, GERD and essential hypertension 1. HTN 2. PAF/Flutter --- CHADSVASC 2 3. Morbid Obesity 4. ALETHA - Continue Toprol-Xl at the current dose - Echo showed moderately reduced LVEF, 45%. Technically difficult study with limited views. - CHADs2 Vasc score of 2, will shift from lovenox to DOAC - apixaban 5mg b.i.d. - Continue furosemide 40mg IV b.i.d. today, perhaps shift to p.o. tomorrow Subjective Date/time seen: 03/08/25 10:46 Interval history: Cardiology follow up visit Date of service 03/08/2025: Does not have any complaints at the time of my visit. Denies palpitations, chest pain, shortness of breath. Review of Systems Review of Systems: 12 systems were reviewed with pertinent positives and negatives per HPI. Except as documented in the HPI, all other systems were reviewed and are negative. Exam Const: General: comfortable, no acute distress, alert and awake Orientation/consciousness: patient oriented x3 HENMT: Head: normal to inspection Eyes: General: appearance normal, both eyes and all related structures Pupils: Equal, round and reactive pupils present Neck: Neck: normal visual inspection and supple Resp: Effort & Inspection: normal respiratory effort Auscultation: clear to auscultation bilaterally and diminished lung sounds Cardio: Rate: regular rate Rhythm: regular rhythm Heart sounds: S1 normal heart sound present, S2 normal heart sound present and no murmurs GI: Auscultation: normal bowel sounds Skin: General skin exam: normal color Neuro: General: patient oriented x3 Cranial nerves: Yes Equal, round and reactive pupils present Extrem: General: normal to inspection and edema (pedal edema) Psych: Appearance: grossly normal Mental Status: mental status grossly normal Objective Data Vital Signs Vital Signs: Vital Signs - 24 hr 03/07/25 12:00 03/07/25 12:00 03/07/25 13:15 Temperature 36.4 C L Pulse Rate 60 110 H 94 Respiratory Rate 18 18 Blood Pressure 127/91 H Pulse Oximetry 95 Oxygen Delivery 03/07/25 13:19 03/07/25 14:00 03/07/25 14:59 Temperature Pulse Rate 95 103 H Respiratory Rate 16 Blood Pressure Pulse Oximetry Oxygen Delivery Room Air 03/07/25 15:42 03/07/25 16:00 03/07/25 18:00 Temperature 36.8 C Pulse Rate 100 88 90 Respiratory Rate 22 H Blood Pressure 106/63 Pulse Oximetry 97 Oxygen Delivery 03/07/25 19:45 03/07/25 19:54 03/07/25 20:00 Temperature 36.7 C Pulse Rate 84 88 87 Respiratory Rate 20 20 Blood Pressure 115/78 Pulse Oximetry 92 96 Oxygen Delivery Room Air 03/07/25 20:07 03/07/25 20:10 03/07/25 20:12 Temperature Pulse Rate 110 H 110 H 102 H Respiratory Rate 20 20 18 Blood Pressure Pulse Oximetry 92 Oxygen Delivery Room Air 03/07/25 22:00 03/07/25 22:50 03/07/25 23:17 Temperature 36.8 C Pulse Rate 89 102 H 97 Respiratory Rate 29 H 22 H Blood Pressure 131/87 Pulse Oximetry 95 98 Oxygen Delivery Autopap 03/07/25 23:52 03/08/25 00:00 03/08/25 02:00 Temperature Pulse Rate 97 87 93 Respiratory Rate 20 Blood Pressure Pulse Oximetry 98 Oxygen Delivery Autopap 03/08/25 02:25 03/08/25 03:55 03/08/25 04:00 Temperature Pulse Rate 93 87 Respiratory Rate 15 15 Blood Pressure Pulse Oximetry 98 Oxygen Delivery Autopap Autopap 03/08/25 04:04 03/08/25 06:00 03/08/25 07:42 Temperature 37.1 C Pulse Rate 83 88 83 Respiratory Rate 20 18 Blood Pressure 130/90 Pulse Oximetry 97 Oxygen Delivery 03/08/25 07:43 03/08/25 07:48 03/08/25 08:00 Temperature 36.8 C Pulse Rate 71 85 Respiratory Rate 18 22 H Blood Pressure 141/82 H Pulse Oximetry 100 100 Oxygen Delivery Room Air 03/08/25 08:00 Temperature Pulse Rate 93 Respiratory Rate 15 Blood Pressure Pulse Oximetry 98 Oxygen Delivery Autopap Intake/Output Intake/Output: Intake & Output 03/05/25 03/06/25 03/07/25 03/08/25 23:59 23:59 23:59 23:59 Intake Total 960 1400 590 Output Total 600 1000 1650 900 Balance -600 -40 -250 -310 Meds/Results Medications: Active Medications Generic Name Dose Route Start Last Admin Trade Name Freq PRN Reason Stop Dose Admin Al Hydrox/Mg Hydrox/Simethicone 30 ml 03/05/25 20:52 Mag Hydrox/Al Hydrox/Simeth 30 Ml Udc PO Q6H PRN Indigestion Albuterol/Ipratropium 3 ml 03/06/25 09:25 03/08/25 07:40 Ipratropium 0.5 Mg/Albuterol Sulfate 2.5 Mg Ampul.Neb 3 Ml INHALATION 3 ml Q6HRT HEATHER Administration Aspirin 81 mg 03/06/25 08:00 03/08/25 08:45 Aspirin 81 Mg Chewable Tablet PO 81 mg DAILY@0800 HEATHER Administration Cyclobenzaprine HCl 5 mg 03/07/25 23:02 03/07/25 23:10 Cyclobenzaprine Hcl 5 Mg Tablet PO 5 mg Q8H PRN Administration Muscle Spasm Docusate Sodium 100 mg 03/05/25 20:52 Docusate Sodium 100 Mg Capsule PO Q12H PRN Constipation Enoxaparin Sodium 44 mg 03/07/25 16:00 03/08/25 08:44 Enoxaparin 60 Mg/0.6 Ml Syringe SUB-Q 44 mg Q12HR HEATHER Administration Enoxaparin Sodium 100 mg 03/07/25 16:00 03/08/25 08:44 Enoxaparin 100 Mg/Ml Syringe SUB-Q 100 mg Q12HR HEATHER Administration Famotidine 40 mg 03/06/25 09:00 03/08/25 08:45 Famotidine 20 Mg Tablet PO 40 mg DAILY HEATHER Administration Furosemide 40 mg 03/06/25 09:00 03/08/25 08:46 Furosemide Inj 40 Mg/4 Ml Vial IV PUSH 40 mg BID HEATHER Administration Losartan Potassium 100 mg 03/06/25 09:00 03/08/25 08:45 Losartan Potassium 100 Mg Tablet PO 100 mg DAILY HEATHER Administration Metoprolol Succinate 25 mg 03/07/25 03:30 03/08/25 08:45 Metoprolol Succinate Ext Rel 25 Mg Tabcr PO 25 mg QAM HEATHER Administration Nitroglycerin 0.4 mg 03/05/25 20:48 Nitroglycerin Sl 0.4 Mg Tablet SUBLINGUAL Q5MIN PRN Chest Pain Ondansetron HCl 4 mg 03/05/25 20:52 Ondansetron Inj 4 Mg/2 Ml Vial IV PUSH Q6H PRN Nausea And Vomiting Radiology Results: ITS Impressions Abdomen Ultrasound 03/06/25 15:38 IMPRESSION: 1. Limited study as above. 2. The visualized liver is heterogeneous likely due to fatty infiltration or hepatocellular disease. Consider a liver mass CT or MRI for further assessment. Labs Labs: Laboratory Results - last 24 hr 03/07/25 03/08/25 22:53 03:35 WBC 6.2 RBC 5.22 Hgb 15.2 Hct 48.2 MCV 92.3 MCH 29.1 MCHC 31.5 L RDW 14.6 H Plt Count 151 MPV 10.3 Sodium 136 L 135 L Potassium 3.6 3.8 Chloride 97 L 98 Carbon Dioxide 32 H 29 Anion Gap 7 8 BUN 28 H 25 H Creatinine 1.19 0.99 Estim Creat Clear Calc 87 102 Estimated GFR > 60 > 60 Glucose 110 111 H Calcium 8.7 8.5 Magnesium 2.1 2.4 H Quality VTE Prophylaxis VTE prophylaxis: pharmacologic ordered (Lovenox 40 mg subQ q.12 hours)
--- NOTE | 2025-03-08 18:21 | P.PNIM_ITS ---
Progress Note: A&P Assessment and Plan (1) CHF (congestive heart failure): Qualifiers: Heart failure chronicity: unspecified Heart failure type: unspecified Qualified Code(s): I50.9 - Heart failure, unspecified Code(s): I50.9 - Heart failure, unspecified Status: Acute Assessment and Plan: Presented with chest tightness, shortness of breath 2D echo shows EF 45% without wall motion abnormality Continue aspirin, Lasix 40 mg b.i.d., losartan 100 mg daily Daily standing weight, strict I&Os, na <2g daily keep mag>2 and K>4 (2) Elevated troponin: Code(s): R79.89 - Other specified abnormal findings of blood chemistry Status: Acute Assessment and Plan: Likely secondary to AFib RVR-demand mismatch No chest pain, sinus rythm (3) Acute hypoxic respiratory failure: Code(s): J96.01 - Acute respiratory failure with hypoxia Status: Acute Assessment and Plan: Resolved (4) Obstructive sleep apnea: Code(s): G47.33 - Obstructive sleep apnea (adult) (pediatric) Status: Acute Assessment and Plan: He has CPAP at home, encourage routine use Will give him CPAP. (5) Essential hypertension: Code(s): I10 - Essential (primary) hypertension Status: Acute Assessment and Plan: BP goal<130/80 Continue losartan Subjective Date/time seen: 03/08/25 18:21 Interval history: She is winded with ambulation. He is comfortable at rest, denies shortness of breath at rest and chest pain. No fever overnight. Exam Const: Other: Obese, developmental delay Neck: Other: Short and thick neck Chest: Palpation/Inspection: normal inspection of the chest and tenderness Resp: Auscultation: wheezes scattered wheezes Cardio: Jugular Venous Distension: no JVD Rate: Yes regular rate Rhythm: regular rhythm Heart Sounds: Yes normal heart sounds GI: Auscultation: normal bowel sounds Palpation/Percussion: Yes non-tender and Yes no guarding Objective Data Vital Signs Vital Signs: Vital Signs - 24 hr 03/07/25 19:45 03/07/25 19:54 03/07/25 20:00 Temperature 36.7 C Pulse Rate 84 88 87 Respiratory Rate 20 20 Blood Pressure 115/78 Pulse Oximetry 92 96 Oxygen Delivery Room Air 03/07/25 20:07 03/07/25 20:10 03/07/25 20:12 Temperature Pulse Rate 110 H 110 H 102 H Respiratory Rate 20 20 18 Blood Pressure Pulse Oximetry 92 Oxygen Delivery Room Air 03/07/25 22:00 03/07/25 22:50 03/07/25 23:17 Temperature 36.8 C Pulse Rate 89 102 H 97 Respiratory Rate 29 H 22 H Blood Pressure 131/87 Pulse Oximetry 95 98 Oxygen Delivery Autopap 03/07/25 23:52 03/08/25 00:00 03/08/25 02:00 Temperature Pulse Rate 97 87 93 Respiratory Rate 20 Blood Pressure Pulse Oximetry 98 Oxygen Delivery Autopap 03/08/25 02:25 03/08/25 03:55 03/08/25 04:00 Temperature Pulse Rate 93 87 Respiratory Rate 15 15 Blood Pressure Pulse Oximetry 98 Oxygen Delivery Autopap Autopap 03/08/25 04:04 03/08/25 06:00 03/08/25 07:42 Temperature 37.1 C Pulse Rate 83 88 83 Respiratory Rate 20 18 Blood Pressure 130/90 Pulse Oximetry 97 Oxygen Delivery 03/08/25 07:43 03/08/25 07:48 03/08/25 08:00 Temperature 36.8 C Pulse Rate 71 85 Respiratory Rate 18 22 H Blood Pressure 141/82 H Pulse Oximetry 100 100 Oxygen Delivery Room Air 03/08/25 08:00 03/08/25 08:00 03/08/25 10:00 Temperature Pulse Rate 93 89 90 Respiratory Rate 15 Blood Pressure Pulse Oximetry 98 Oxygen Delivery Autopap 03/08/25 11:50 03/08/25 12:00 03/08/25 12:00 Temperature 36.8 C Pulse Rate 83 93 93 Respiratory Rate 24 H 15 Blood Pressure 147/71 H Pulse Oximetry 96 98 Oxygen Delivery Autopap 03/08/25 13:24 03/08/25 13:30 03/08/25 13:36 Temperature Pulse Rate 81 81 Respiratory Rate 18 19 Blood Pressure Pulse Oximetry Oxygen Delivery Room Air 03/08/25 14:00 03/08/25 15:22 03/08/25 15:55 Temperature 36.6 C Pulse Rate 82 93 60 Respiratory Rate 15 20 Blood Pressure 112/81 Pulse Oximetry 98 100 Oxygen Delivery Autopap 03/08/25 16:00 Temperature Pulse Rate 79 Respiratory Rate Blood Pressure Pulse Oximetry Oxygen Delivery Intake/Output Intake/Output: Intake & Output 03/05/25 03/06/25 03/07/25 03/08/25 23:59 23:59 23:59 23:59 Intake Total 960 1400 2290 Output Total 600 1000 1650 1350 Balance -600 -40 -250 940 Meds/Results Medications: Active Medications Generic Name Dose Route Start Last Admin Trade Name Freq PRN Reason Stop Dose Admin Al Hydrox/Mg Hydrox/Simethicone 30 ml 03/05/25 20:52 Mag Hydrox/Al Hydrox/Simeth 30 Ml Udc PO Q6H PRN Indigestion Albuterol/Ipratropium 3 ml 03/06/25 09:25 03/08/25 13:23 Ipratropium 0.5 Mg/Albuterol Sulfate 2.5 Mg Ampul.Neb 3 Ml INHALATION 3 ml Q6HRT HEATHER Administration Apixaban 5 mg 03/08/25 21:00 Apixaban 5 Mg Tablet PO Q12HR HEATHER Aspirin 81 mg 03/06/25 08:00 03/08/25 08:45 Aspirin 81 Mg Chewable Tablet PO 81 mg DAILY@0800 [facility] Administration Cyclobenzaprine HCl 5 mg 03/07/25 23:02 03/07/25 23:10 Cyclobenzaprine Hcl 5 Mg Tablet PO 5 mg Q8H PRN Administration Muscle Spasm Docusate Sodium 100 mg 03/05/25 20:52 Docusate Sodium 100 Mg Capsule PO Q12H PRN Constipation Famotidine 40 mg 03/06/25 09:00 03/08/25 08:45 Famotidine 20 Mg Tablet PO 40 mg DAILY HEATHER Administration Furosemide 40 mg 03/06/25 09:00 03/08/25 17:56 Furosemide Inj 40 Mg/4 Ml Vial IV PUSH 40 mg BID HEATHER Administration Losartan Potassium 100 mg 03/06/25 09:00 03/08/25 08:45 Losartan Potassium 100 Mg Tablet PO 100 mg DAILY [facility] Administration Metoprolol Succinate 25 mg 03/07/25 03:30 03/08/25 08:45 Metoprolol Succinate Ext Rel 25 Mg Tabcr PO 25 mg QAM HEATHER Administration Nitroglycerin 0.4 mg 03/05/25 20:48 Nitroglycerin Sl 0.4 Mg Tablet SUBLINGUAL Q5MIN PRN Chest Pain Ondansetron HCl 4 mg 03/05/25 20:52 Ondansetron Inj 4 Mg/2 Ml Vial IV PUSH Q6H PRN Nausea And Vomiting Radiology Results: ITS Impressions Abdomen Ultrasound 03/06/25 15:38 IMPRESSION: 1. Limited study as above. 2. The visualized liver is heterogeneous likely due to fatty infiltration or hepatocellular disease. Consider a liver mass CT or MRI for further assessment. Labs Labs: Laboratory Results - last 24 hr 03/07/25 03/08/25 22:53 03:35 WBC 6.2 RBC 5.22 Hgb 15.2 Hct 48.2 MCV 92.3 MCH 29.1 MCHC 31.5 L RDW 14.6 H Plt Count 151 MPV 10.3 Sodium 136 L 135 L Potassium 3.6 3.8 Chloride 97 L 98 Carbon Dioxide 32 H 29 Anion Gap 7 8 BUN 28 H 25 H Creatinine 1.19 0.99 Estim Creat Clear Calc 87 102 Estimated GFR > 60 > 60 Glucose 110 111 H Calcium 8.7 8.5 Magnesium 2.1 2.4 H Quality VTE Prophylaxis VTE prophylaxis: pharmacologic ordered (Eliquis)
[2025-03-08] MEDS: APIXABAN 5 MG TABLET PO (20:36)
[2025-03-08] MEDS: CYCLOBENZAPRINE HCL 5 MG TABLET PO (23:02)
[2025-03-09] VITALS (19 sets, daily range): BP systolic 125–140; BP diastolic 74–75; PULSE 67–90; RESP 15–26; TEMP 36.3–36.7; O2SAT 91–99
[2025-03-09] MEDS: IPRATROPIUM 0.5 MG/ALBUTEROL SULFATE 2.5 MG AMPUL.NEB 3 ML INHALATION ×4 (02:15→20:36)
[2025-03-09 04:19] LABS: Hematocrit 45.6 % (42.0-52.0); Hemoglobin 14.5 g/dL (14.0-18.0); Mean Corpuscular HGB Conc 31.8 g/dl (32-36); Mean Corpuscular Hemoglobin 28.5 pg (26-34); Mean Corpuscular Volume 89.6 fl (80-100); Platelet Count Result 165 k/mm3 (150-375); Red Blood Count 5.09 M/mm3 (4.6-6.20); White Blood Count 7.0 K/mm3 (4.5-10.0)
[2025-03-09 04:31] LABS: Anion Gap 5 mmol/L (4-12); Blood Urea Nitrogen 25 mg/dL (9-20); Calcium 8.6 mg/dL (8.4-10.2); Carbon Dioxide 31 mmol/L (22-30); Chloride 97 mmol/L (98-107); Estimated CRCL calculation 95 ml/min; Estimated Glomerular Filt Rate > 60; Glucose 110 mg/dL (65-110); Magnesium 2.2 mg/dL (1.6-2.3); Potassium 3.4 mmol/L (3.4-5.0); Sodium 133 mmol/L (137-145)
--- NOTE | 2025-03-09 07:47 | P.PNCA_ITS ---
Progress Note: A&P Assessment and Plan (1) Atrial fibrillation: Code(s): I48.91 - Unspecified atrial fibrillation Status: Acute Plan Pleasant 54-year-old male with a past medical history of intellectual disability, morbid obesity, obstructive sleep apnea with CPAP, GERD and essential hypertension 1. HTN 2. PAF/Flutter --- CHADSVASC 2 3. Morbid Obesity 4. 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 -regards to atrial fibrillation, he appears to be in sinus rhythm with frequent PACs. Ejection fraction 45% on the echo but technically difficult. Continue Eliquis 5 mg b.i.d.. Increase Toprol-XL to 50 mg daily. -regards hypertension controlled. Continue metoprolol and losartan -does to morbid obesity continue CPAP. 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 He has no murmur. Will increase Lasix to 40 mg IV t.i.d. from b.i.d. for 1 day and then transition to p.o.. Significant edema bilaterally. Subjective Date/time seen: Date of service 03/09/25 07:47 Interval history: Cardiology follow up visit Date of service 03/08/2025: Does not have any complaints at the time of my visit. Denies palpitations, chest pain, shortness of breath. Date of service 03/09/2025-resting comfortably on the chair. No complaints. On telemetry sinus rhythm with PACs. He does have lower extremity edema. Review of Systems Review of Systems: 12 systems were reviewed with pertinent positives and negatives per HPI. Except as documented in the HPI, all other systems were reviewed and are negative. Exam Narrative: Morbidly obese Patient is comfortable, NAD HEENT: eyes are clear and none icteric LUNGS:CTA HEART: RR S1S2 ABD: BS+, Soft and nontender Lower extremities: no edema SKIN: nonjaundiced Neuro: grossly intact. Const: General: comfortable, no acute distress, alert and awake Orientation/consciousness: patient oriented x3 HENMT: Head: normal to inspection Eyes: General: appearance normal, both eyes and all related structures Pupils: Equal, round and reactive pupils present Neck: Neck: normal visual inspection and supple Resp: Effort & Inspection: normal respiratory effort Auscultation: clear to auscultation bilaterally and diminished lung sounds Cardio: Rate: regular rate Rhythm: regular rhythm Heart sounds: S1 normal heart sound present, S2 normal heart sound present and no murmurs GI: Auscultation: normal bowel sounds Skin: General skin exam: normal color Neuro: General: patient oriented x3 Cranial nerves: Yes Equal, round and reactive pupils present Extrem: General: normal to inspection and edema (pedal edema) Psych: Appearance: grossly normal Mental Status: mental status grossly normal Objective Data Vital Signs Vital Signs: Vital Signs - 24 hr 03/08/25 07:48 03/08/25 08:00 03/08/25 08:00 Temperature 36.8 C Pulse Rate 71 85 93 Respiratory Rate 18 22 H 15 Blood Pressure 141/82 H Pulse Oximetry 100 98 Oxygen Delivery Autopap 03/08/25 08:00 03/08/25 10:00 03/08/25 11:50 Temperature 36.8 C Pulse Rate 89 90 83 Respiratory Rate 24 H Blood Pressure 147/71 H Pulse Oximetry 96 Oxygen Delivery 03/08/25 12:00 03/08/25 12:00 03/08/25 13:24 Temperature Pulse Rate 93 93 81 Respiratory Rate 15 18 Blood Pressure Pulse Oximetry 98 Oxygen Delivery Autopap 03/08/25 13:30 03/08/25 13:36 03/08/25 14:00 Temperature Pulse Rate 81 82 Respiratory Rate 19 Blood Pressure Pulse Oximetry Oxygen Delivery Room Air 03/08/25 15:22 03/08/25 15:55 03/08/25 16:00 Temperature 36.6 C Pulse Rate 93 60 79 Respiratory Rate 15 20 Blood Pressure 112/81 Pulse Oximetry 98 100 Oxygen Delivery Autopap 03/08/25 19:50 03/08/25 20:00 03/08/25 20:04 Temperature Pulse Rate 77 72 71 Respiratory Rate 20 18 Blood Pressure Pulse Oximetry 100 Oxygen Delivery Autopap 03/08/25 20:06 03/08/25 22:42 03/08/25 23:17 Temperature 36.8 C Pulse Rate 99 74 Respiratory Rate 18 17 18 Blood Pressure 131/79 Pulse Oximetry 97 96 93 Oxygen Delivery Room Air Autopap 03/09/25 00:00 03/09/25 02:15 03/09/25 02:19 Temperature Pulse Rate 76 67 70 Respiratory Rate 18 15 Blood Pressure Pulse Oximetry 96 Oxygen Delivery Autopap 03/09/25 02:23 03/09/25 04:00 03/09/25 07:35 Temperature 36.4 C L Pulse Rate 72 73 79 Respiratory Rate 18 24 H Blood Pressure 125/74 Pulse Oximetry 91 Oxygen Delivery 03/09/25 07:43 Temperature Pulse Rate 80 Respiratory Rate 18 Blood Pressure Pulse Oximetry Oxygen Delivery Intake/Output Intake/Output: Intake & Output 03/06/25 03/07/25 03/08/25 03/09/25 23:59 23:59 23:59 23:59 Intake Total 960 1400 2290 Output Total 1000 1650 2350 150 Balance -40 -250 -60 -150 Meds/Results Medications: Active Medications Generic Name Dose Route Start Last Admin Trade Name Freq PRN Reason Stop Dose Admin Al Hydrox/Mg Hydrox/Simethicone 30 ml 03/05/25 20:52 Mag Hydrox/Al Hydrox/Simeth 30 Ml Udc PO Q6H PRN Indigestion Albuterol/Ipratropium 3 ml 03/06/25 09:25 03/09/25 07:41 Ipratropium 0.5 Mg/Albuterol Sulfate 2.5 Mg Ampul.Neb 3 Ml INHALATION 3 ml Q6HRT HEATHER Administration Apixaban 5 mg 03/08/25 21:00 03/08/25 20:36 Apixaban 5 Mg Tablet PO 5 mg Q12HR HEATHER Administration Aspirin 81 mg 03/06/25 08:00 03/08/25 08:45 Aspirin 81 Mg Chewable Tablet PO 81 mg DAILY@0800 HEATHER Administration Cyclobenzaprine HCl 5 mg 03/07/25 23:02 03/08/25 23:02 Cyclobenzaprine Hcl 5 Mg Tablet PO 5 mg Q8H PRN Administration Muscle Spasm Docusate Sodium 100 mg 03/05/25 20:52 Docusate Sodium 100 Mg Capsule PO Q12H PRN Constipation Famotidine 40 mg 03/06/25 09:00 03/08/25 08:45 Famotidine 20 Mg Tablet PO 40 mg DAILY HEATHER Administration Furosemide 40 mg 03/06/25 09:00 03/08/25 17:56 Furosemide Inj 40 Mg/4 Ml Vial IV PUSH 40 mg BID HEATHER Administration Losartan Potassium 100 mg 03/06/25 09:00 03/08/25 08:45 Losartan Potassium 100 Mg Tablet PO 100 mg DAILY HEATHER Administration Metoprolol Succinate 25 mg 03/07/25 03:30 03/08/25 08:45 Metoprolol Succinate Ext Rel 25 Mg Tabcr PO 25 mg QAM HEATHER Administration Nitroglycerin 0.4 mg 03/05/25 20:48 Nitroglycerin Sl 0.4 Mg Tablet SUBLINGUAL Q5MIN PRN Chest Pain Ondansetron HCl 4 mg 03/05/25 20:52 Ondansetron Inj 4 Mg/2 Ml Vial IV PUSH Q6H PRN Nausea And Vomiting Radiology Results: ITS Impressions Abdomen Ultrasound 03/06/25 15:38 IMPRESSION: 1. Limited study as above. 2. The visualized liver is heterogeneous likely due to fatty infiltration or hep atocellular disease. Consider a liver mass CT or MRI for further assessment. Labs Labs: Laboratory Results - last 24 hr 03/09/25 03:47 WBC 7.0 RBC 5.09 Hgb 14.5 Hct 45.6 MCV 89.6 MCH 28.5 MCHC 31.8 L RDW 14.6 H Plt Count 165 MPV 10.4 Sodium 133 L Potassium 3.4 Chloride 97 L Carbon Dioxide 31 H Anion Gap 5 BUN 25 H Creatinine 1.07 Estim Creat Clear Calc 95 Estimated GFR > 60 Glucose 110 Calcium 8.6 Magnesium 2.2
[2025-03-09] MEDS: METOPROLOL SUCCINATE EXT REL 25 MG TABCR PO (08:13)
[2025-03-09] MEDS: APIXABAN 5 MG TABLET PO ×2 (08:13→20:21)
[2025-03-09] MEDS: LOSARTAN POTASSIUM 100 MG TABLET PO (08:13)
[2025-03-09] MEDS: FAMOTIDINE 20 MG TABLET 40 MG PO (08:13)
[2025-03-09] MEDS: ASPIRIN 81 MG CHEWABLE TABLET PO (08:13)
[2025-03-09] MEDS: FUROSEMIDE INJ 40 MG/4 ML VIAL IV PUSH ×3 (08:13→18:32)
[2025-03-09] MEDS: POTASSIUM CHLORIDE 20 MEQ ER TABLET 40 MEQ PO (08:16)
--- NOTE | 2025-03-09 17:30 | PC.NURSE ---
This patient, Ady Gr, was transferred to [facility] on 03/09/25 at 1705. Personal belongings sent with patient. Report given to CATALINA Wallace. Appropriate documentation sent with patient. Patient left resting in chair with alarm on and call light in reach. Voiced no complaints or concerns at time of transfer. Corina Mata RN
[2025-03-09 18:15] LABS: Hematocrit 48.3 % (42.0-52.0); Hemoglobin 15.5 g/dL (14.0-18.0); Mean Corpuscular HGB Conc 32.1 g/dl (32-36); Mean Corpuscular Hemoglobin 28.8 pg (26-34); Mean Corpuscular Volume 89.8 fl (80-100); Platelet Count Result 203 k/mm3 (150-375); Red Blood Count 5.38 M/mm3 (4.6-6.20); White Blood Count 7.0 K/mm3 (4.5-10.0)
[2025-03-09 18:35] LABS: Alanine Aminotransferase 60 U/L (6-50); Albumin Level 4.1 g/dL (3.5-5.1); Alkaline Phosphatase 63 U/L (38-126); Anion Gap 7 mmol/L (4-12); Aspartate Amino Transferase 52 U/L (17-59); Bilirubin,Total 0.4 mg/dL (0.2-1.3); Blood Urea Nitrogen 27 mg/dL (9-20); Calcium 9.0 mg/dL (8.4-10.2); Carbon Dioxide 34 mmol/L (22-30); Chloride 95 mmol/L (98-107); Estimated CRCL calculation 80 ml/min; Estimated Glomerular Filt Rate 58; Glucose 133 mg/dL (65-110); Magnesium 2.3 mg/dL (1.6-2.3); Potassium 4.4 mmol/L (3.4-5.0); Sodium 136 mmol/L (137-145); Total Protein 7.8 g/dL (6.3-8.2)
--- NOTE | 2025-03-09 18:42 | PM.IMPN ---
Progress Note: A&P Assessment and Plan (1) CHF (congestive heart failure): Qualifiers: Heart failure chronicity: unspecified Heart failure type: unspecified Qualified Code(s): I50.9 - Heart failure, unspecified Code(s): I50.9 - Heart failure, unspecified Status: Acute Assessment and Plan: Presented with chest tightness, shortness of breath 2D echo shows EF 45% without wall motion abnormality Continue aspirin, losartan 100 mg daily Lasix increased to 40 mg t.i.d. Daily standing weight, strict I&Os, na <2g daily keep mag>2 and K>4 (2) Elevated troponin: Code(s): R79.89 - Other specified abnormal findings of blood chemistry Status: Acute Assessment and Plan: Likely secondary to AFib RVR-demand mismatch No chest pain, sinus rythm (3) Acute hypoxic respiratory failure: Code(s): J96.01 - Acute respiratory failure with hypoxia Status: Acute Assessment and Plan: Resolved (4) Obstructive sleep apnea: Code(s): G47.33 - Obstructive sleep apnea (adult) (pediatric) Status: Acute Assessment and Plan: He has CPAP at home, encourage routine use Will give him CPAP. (5) Essential hypertension: Code(s): I10 - Essential (primary) hypertension Status: Acute Assessment and Plan: BP goal<130/80 Continue losartan Subjective Date/time seen: 03/09/25 18:42 Interval history: patient is breathing better. Denies wheezing or getting winded easily. No chest pain or shortness of breath. No fever or chills. No abdominal pain or diarrhea. Exam Const: Other: Obese, developmental delay Neck: Other: Short and thick neck Chest: Chest palpation & inspection: normal inspection of the chest and tenderness Cardio: Jugular venous distension: no JVD Rate: regular rate Rhythm: regular rhythm GI: Auscultation: normal bowel sounds Extrem: Other: Bilateral lower extremity edema, reduce compared to yesterday, pitting 2+ Objective Data Vital Signs Vital Signs: Vital Signs - 24 hr 03/08/25 19:50 03/08/25 20:00 03/08/25 20:04 Temperature Pulse Rate 77 72 71 Respiratory Rate 20 18 Blood Pressure Pulse Oximetry 100 Oxygen Delivery Autopap 03/08/25 20:06 03/08/25 22:42 03/08/25 23:17 Temperature 36.8 C Pulse Rate 99 74 Respiratory Rate 18 17 18 Blood Pressure 131/79 Pulse Oximetry 97 96 93 Oxygen Delivery Room Air Autopap 03/09/25 00:00 03/09/25 02:15 03/09/25 02:19 Temperature Pulse Rate 76 67 70 Respiratory Rate 18 15 Blood Pressure Pulse Oximetry 96 Oxygen Delivery Autopap 03/09/25 02:23 03/09/25 04:00 03/09/25 07:35 Temperature 36.4 C L Pulse Rate 72 73 79 Respiratory Rate 18 24 H Blood Pressure 125/74 Pulse Oximetry 91 Oxygen Delivery 03/09/25 07:43 03/09/25 07:55 03/09/25 08:00 Temperature Pulse Rate 80 74 Respiratory Rate 18 16 Blood Pressure Pulse Oximetry 91 Oxygen Delivery Room Air 03/09/25 08:00 03/09/25 08:13 03/09/25 12:00 Temperature Pulse Rate 90 89 79 Respiratory Rate Blood Pressure Pulse Oximetry Oxygen Delivery 03/09/25 13:14 03/09/25 13:24 03/09/25 16:00 Temperature 36.7 C Pulse Rate 72 70 70 Respiratory Rate 16 16 26 H Blood Pressure 140/75 Pulse Oximetry 99 Oxygen Delivery 03/09/25 16:00 Temperature Pulse Rate 71 Respiratory Rate Blood Pressure Pulse Oximetry Oxygen Delivery Intake/Output Intake/Output: Intake & Output 03/06/25 03/07/25 03/08/25 03/09/25 23:59 23:59 23:59 23:59 Intake Total 960 1400 2290 1752 Output Total 1000 1650 2350 1250 Balance -40 -250 -60 502 Meds/Results Medications: Active Medications Generic Name Dose Route Start Last Admin Trade Name Freq PRN Reason Stop Dose Admin Al Hydrox/Mg Hydrox/Simethicone 30 ml 03/05/25 20:52 Mag Hydrox/Al Hydrox/Simeth 30 Ml Udc PO Q6H PRN Indigestion Albuterol/Ipratropium 3 ml 03/06/25 09:25 03/09/25 13:14 Ipratropium 0.5 Mg/Albuterol Sulfate 2.5 Mg Ampul.Neb 3 Ml INHALATION 3 ml Q6HRT HEATHER Administration Apixaban 5 mg 03/08/25 21:00 03/09/25 08:13 Apixaban 5 Mg Tablet PO 5 mg Q12HR HEATHER Administration Aspirin 81 mg 03/06/25 08:00 03/09/25 08:13 Aspirin 81 Mg Chewable Tablet PO 81 mg DAILY@0800 [facility] Administration Cyclobenzaprine HCl 5 mg 03/07/25 23:02 03/08/25 23:02 Cyclobenzaprine Hcl 5 Mg Tablet PO 5 mg Q8H PRN Administration Muscle Spasm Docusate Sodium 100 mg 03/05/25 20:52 Docusate Sodium 100 Mg Capsule PO Q12H PRN Constipation Famotidine 40 mg 03/06/25 09:00 03/09/25 08:13 Famotidine 20 Mg Tablet PO 40 mg DAILY HEATHER Administration Furosemide 40 mg 03/09/25 09:00 03/09/25 18:32 Furosemide Inj 40 Mg/4 Ml Vial IV PUSH 40 mg TID [facility] Administration Losartan Potassium 100 mg 03/06/25 09:00 03/09/25 08:13 Losartan Potassium 100 Mg Tablet PO 100 mg DAILY [facility] Administration Metoprolol Succinate 25 mg 03/07/25 03:30 03/09/25 08:13 Metoprolol Succinate Ext Rel 25 Mg Tabcr PO 25 mg QAM [facility] Administration Nitroglycerin 0.4 mg 03/05/25 20:48 Nitroglycerin Sl 0.4 Mg Tablet SUBLINGUAL Q5MIN PRN Chest Pain Ondansetron HCl 4 mg 03/05/25 20:52 Ondansetron Inj 4 Mg/2 Ml Vial IV PUSH Q6H PRN Nausea And Vomiting Radiology Results: ITS Impressions Abdomen Ultrasound 03/06/25 15:38 IMPRESSION: 1. Limited study as above. 2. The visualized liver is heterogeneous likely due to fatty infiltration or hepatocellular disease. Consider a liver mass CT or MRI for further assessment. Labs Labs: Laboratory Results - last 24 hr 03/09/25 03/09/25 03:47 18:10 WBC 7.0 7.0 RBC 5.09 5.38 Hgb 14.5 15.5 Hct 45.6 48.3 MCV 89.6 89.8 MCH 28.5 28.8 MCHC 31.8 L 32.1 RDW 14.6 H 14.6 H Plt Count 165 203 MPV 10.4 10.4 Sodium 133 L 136 L Potassium 3.4 4.4 Chloride 97 L 95 L Carbon Dioxide 31 H 34 H Anion Gap 5 7 BUN 25 H 27 H Creatinine 1.07 1.29 Estim Creat Clear Calc 95 80 Estimated GFR > 60 58 L Glucose 110 133 H Calcium 8.6 9.0 Magnesium 2.2 2.3 Total Bilirubin 0.4 AST 52 ALT 60 H Alkaline Phosphatase 63 Total Protein 7.8 Albumin 4.1 Quality VTE Prophylaxis VTE prophylaxis: pharmacologic ordered (Eliquis)
[2025-03-10] VITALS (21 sets, daily range): BP systolic 118–136; BP diastolic 60–93; PULSE 67–88; RESP 16–28; TEMP 36.1–36.6; O2SAT 92–98
[2025-03-10] MEDS: CYCLOBENZAPRINE HCL 5 MG TABLET PO ×2 (01:39→21:15)
[2025-03-10] MEDS: IPRATROPIUM 0.5 MG/ALBUTEROL SULFATE 2.5 MG AMPUL.NEB 3 ML INHALATION ×4 (02:03→19:48)
[2025-03-10 05:03] LABS: Hematocrit 45.1 % (42.0-52.0); Hemoglobin 14.2 g/dL (14.0-18.0); Mean Corpuscular HGB Conc 31.5 g/dl (32-36); Mean Corpuscular Hemoglobin 28.3 pg (26-34); Mean Corpuscular Volume 89.8 fl (80-100); Platelet Count Result 174 k/mm3 (150-375); Red Blood Count 5.02 M/mm3 (4.6-6.20); White Blood Count 7.0 K/mm3 (4.5-10.0)
[2025-03-10 05:28] LABS: Anion Gap 6 mmol/L (4-12); Blood Urea Nitrogen 27 mg/dL (9-20); Calcium 8.7 mg/dL (8.4-10.2); Carbon Dioxide 31 mmol/L (22-30); Chloride 98 mmol/L (98-107); Estimated CRCL calculation 90 ml/min; Estimated Glomerular Filt Rate > 60; Glucose 111 mg/dL (65-110); Magnesium 2.2 mg/dL (1.6-2.3); Potassium 4.0 mmol/L (3.4-5.0); Sodium 135 mmol/L (137-145)
--- NOTE | 2025-03-10 08:11 | PM.PNCARD ---
Progress Note: A&P Assessment and Plan (1) Atrial fibrillation: Code(s): I48.91 - Unspecified atrial fibrillation Status: Acute Plan Pleasant 54-year-old male with a past medical history of intellectual disability, morbid obesity, obstructive sleep apnea with CPAP, GERD and essential hypertension 1. HTN 2. PAF/Flutter --- CHADSVASC 2 3. Morbid Obesity 4. 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 -regards to atrial fibrillation, today he appears in sinus rhythm. Ejection fraction 45% on the echo but technically difficult. Continue Eliquis 5 mg b.i.d.. Increase Toprol-XL to 50 mg daily. -regards hypertension controlled. Continue metoprolol and losartan. -does to morbid obesity continue CPAP. 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 He has no murmur. Continue Lasix 40 mg IV t.i.d.. Add metolazone 2.5 mg x 1 today.. Still has Significant edema bilaterally. Subjective Date/time seen: 03/10/25 08:11 Interval history: Cardiology follow up visit Date of service 03/08/2025: Does not have any complaints at the time of my visit. Denies palpitations, chest pain, shortness of breath. Date of service /03/09/2025-resting comfortably on the chair. No complaints. On telemetry sinus rhythm with PACs. He does have lower extremity edema. Date of service [id number] comfortably in chair. Still has edema. Maintaining sinus rhythm. Review of Systems Review of Systems: 12 systems were reviewed with pertinent positives and negatives per HPI. Except as documented in the HPI, all other systems were reviewed and are negative. Exam Narrative: Morbidly obese Patient is comfortable, NAD HEENT: eyes are clear and none icteric LUNGS:CTA HEART: RR S1S2 ABD: BS+, Soft and nontender Lower extremities: no edema SKIN: nonjaundiced Neuro: grossly intact. Const: General: comfortable, no acute distress, alert and awake Orientation/consciousness: patient oriented x3 HENMT: Head: normal to inspection Eyes: General: appearance normal, both eyes and all related structures Pupils: Equal, round and reactive pupils present Neck: Neck: normal visual inspection and supple Resp: Effort & Inspection: normal respiratory effort Auscultation: clear to auscultation bilaterally and diminished lung sounds Cardio: Rate: regular rate Rhythm: regular rhythm Heart sounds: S1 normal heart sound present, S2 normal heart sound present and no murmurs GI: Auscultation: normal bowel sounds Skin: General skin exam: normal color Neuro: General: patient oriented x3 Cranial nerves: Yes Equal, round and reactive pupils present Extrem: General: normal to inspection and edema (pedal edema) Psych: Appearance: grossly normal Mental Status: mental status grossly normal Objective Data Vital Signs Vital Signs: Vital Signs - 24 hr 03/09/25 08:13 03/09/25 12:00 03/09/25 13:14 Temperature Pulse Rate 89 79 72 Respiratory Rate 16 Blood Pressure Pulse Oximetry Oxygen Delivery 03/09/25 13:24 03/09/25 16:00 03/09/25 16:00 Temperature 36.7 C Pulse Rate 70 70 71 Respiratory Rate 16 26 H Blood Pressure 140/75 Pulse Oximetry 99 Oxygen Delivery 03/09/25 20:00 03/09/25 20:02 03/09/25 20:17 Temperature 36.3 C L Pulse Rate 77 73 Respiratory Rate 18 Blood Pressure 140/75 Pulse Oximetry 97 Oxygen Delivery Room Air 03/09/25 20:38 03/09/25 20:38 03/09/25 20:43 Temperature Pulse Rate 88 87 Respiratory Rate 18 18 Blood Pressure Pulse Oximetry 91 Oxygen Delivery Room Air 03/09/25 22:15 03/10/25 00:00 03/10/25 02:05 Temperature Pulse Rate 84 71 70 Respiratory Rate 15 20 Blood Pressure Pulse Oximetry 91 Oxygen Delivery Autopap 03/10/25 02:06 03/10/25 02:13 03/10/25 04:00 Temperature Pulse Rate 70 68 82 Respiratory Rate 20 20 Blood Pressure Pulse Oximetry 92 Oxygen Delivery Autopap 03/10/25 04:21 03/10/25 07:55 03/10/25 07:55 Temperature 36.6 C Pulse Rate 70 70 Respiratory Rate 18 20 Blood Pressure 128/60 Pulse Oximetry 92 95 Oxygen Delivery Room Air 03/10/25 08:01 Temperature Pulse Rate 76 Respiratory Rate 20 Blood Pressure Pulse Oximetry Oxygen Delivery Intake/Output Intake/Output: Intake & Output 03/07/25 03/08/25 03/09/25 03/10/25 23:59 23:59 23:59 23:59 Intake Total 1400 2290 1752 300 Output Total 1650 0360 1250 Balance -250 -60 502 300 Meds/Results Medications: Active Medications Generic Name Dose Route Start Last Admin Trade Name Freq PRN Reason Stop Dose Admin Al Hydrox/Mg Hydrox/Simethicone 30 ml 03/05/25 20:52 Mag Hydrox/Al Hydrox/Simeth 30 Ml Udc PO Q6H PRN Indigestion Albuterol/Ipratropium 3 ml 03/06/25 09:25 03/10/25 07:51 Ipratropium 0.5 Mg/Albuterol Sulfate 2.5 Mg Ampul.Neb 3 Ml INHALATION 3 ml Q6HRT HEATHER Administration Apixaban 5 mg 03/08/25 21:00 03/09/25 20:21 Apixaban 5 Mg Tablet PO 5 mg Q12HR HEATHER Administration Aspirin 81 mg 03/06/25 08:00 03/09/25 08:13 Aspirin 81 Mg Chewable Tablet PO 81 mg DAILY@0800 [facility] Administration Cyclobenzaprine HCl 5 mg 03/07/25 23:02 03/10/25 01:39 Cyclobenzaprine Hcl 5 Mg Tablet PO 5 mg Q8H PRN Administration Muscle Spasm Docusate Sodium 100 mg 03/05/25 20:52 Docusate Sodium 100 Mg Capsule PO Q12H PRN Constipation Famotidine 40 mg 03/06/25 09:00 03/09/25 08:13 Famotidine 20 Mg Tablet PO 40 mg DAILY [facility]ATHER Administration Furosemide 40 mg 03/09/25 09:00 03/09/25 18:32 Furosemide Inj 40 Mg/4 Ml Vial IV PUSH 40 mg TID HEATHER Administration Losartan Potassium 100 mg 03/06/25 09:00 03/09/25 08:13 Losartan Potassium 100 Mg Tablet PO 100 mg DAILY HEATHER Administration Metoprolol Succinate 25 mg 03/07/25 03:30 03/09/25 08:13 Metoprolol Succinate Ext Rel 25 Mg Tabcr PO 25 mg QAM [facility]ATHER Administration Nitroglycerin 0.4 mg 03/05/25 20:48 Nitroglycerin Sl 0.4 Mg Tablet SUBLINGUAL Q5MIN PRN Chest Pain Ondansetron HCl 4 mg 03/05/25 20:52 Ondansetron Inj 4 Mg/2 Ml Vial IV PUSH Q6H PRN Nausea And Vomiting Radiology Results: ITS Impressions Abdomen Ultrasound 03/06/25 15:38 IMPRESSION: 1. Limited study as above. 2. The visualized liver is heterogeneous likely due to fatty infiltration or hepatocellular disease. Consider a liver mass CT or MRI for further assessment. Labs Labs: Laboratory Results - last 24 hr 03/09/25 03/10/25 18:10 04:53 WBC 7.0 7.0 RBC 5.38 5.02 Hgb 15.5 14.2 Hct 48.3 45.1 MCV 89.8 89.8 MCH 28.8 28.3 MCHC 32.1 31.5 L RDW 14.6 H 14.6 H Plt Count 203 174 MPV 10.4 10.1 Sodium 136 L 135 L Potassium 4.4 4.0 Chloride 95 L 98 Carbon Dioxide 34 H 31 H Anion Gap 7 6 BUN 27 H 27 H Creatinine 1.29 1.19 Estim Creat Clear Calc 80 90 Estimated GFR 58 L > 60 Glucose 133 H 111 H Calcium 9.0 8.7 Magnesium 2.3 2.2 Total Bilirubin 0.4 AST 52 ALT 60 H Alkaline Phosphatase 63 Total Protein 7.8 Albumin 4.1 Quality VTE Prophylaxis VTE prophylaxis: pharmacologic ordered (Eliquis)
[2025-03-10] MEDS: FAMOTIDINE 20 MG TABLET 40 MG PO (08:41)
[2025-03-10] MEDS: LOSARTAN POTASSIUM 100 MG TABLET PO (08:41)
[2025-03-10] MEDS: METOPROLOL SUCCINATE EXT REL 50 MG TABCR PO (08:42)
[2025-03-10] MEDS: APIXABAN 5 MG TABLET PO ×2 (08:42→20:10)
[2025-03-10] MEDS: ASPIRIN 81 MG CHEWABLE TABLET PO (08:42)
[2025-03-10] MEDS: FUROSEMIDE INJ 40 MG/4 ML VIAL IV PUSH ×3 (08:42→17:19)
--- NOTE | 2025-03-10 14:11 | PM.IMPN ---
Progress Note: A&P Assessment and Plan (1) CHF (congestive heart failure): Qualifiers: Heart failure chronicity: unspecified Heart failure type: unspecified Qualified Code(s): I50.9 - Heart failure, unspecified Code(s): I50.9 - Heart failure, unspecified Status: Acute Assessment and Plan: Presented with chest tightness, shortness of breath 2D echo shows EF 45% without wall motion abnormality Continue aspirin, losartan 100 mg daily and metoprolol succinate 50 mg q.day Continue Lasix 40 mg t.i.d. Add metolazone 2.5 mg today per cardiology Daily standing weight, strict I&Os, na <2g daily keep mag>2 and K>4 (2) Elevated troponin: Code(s): R79.89 - Other specified abnormal findings of blood chemistry Status: Acute Assessment and Plan: Likely secondary to AFib RVR-demand mismatch No chest pain, on sinus rythm (3) Acute hypoxic respiratory failure: Code(s): J96.01 - Acute respiratory failure with hypoxia Status: Acute Assessment and Plan: On room air Not on Acute respiratory distress (4) Obstructive sleep apnea: Code(s): G47.33 - Obstructive sleep apnea (adult) (pediatric) Status: Acute Assessment and Plan: He has CPAP at home, encourage routine use Continue CPAP. (5) Essential hypertension: Code(s): I10 - Essential (primary) hypertension Status: Acute Assessment and Plan: BP goal<130/80 Continue losartan Subjective Date/time seen: 03/10/25 14:11 Interval history: He is doing well. He reports no shortness of breaths upon exertion. Denies palpitation or chest tightness. Exam Narrative: APPEARANCE: No acute distress, morbidly obese, oral crowding EYES: EOMI HEENT: Normocephalic, atraumatic, OMM RESPIRATORY: No respiratory distress Clear to auscultation bilaterally with no rhonchi wheezing or rales. CARDIOVASCULAR: RRR, S1 and S2 without murmurs rubs or gallops. ABDOMINAL: Protuberant, Soft, nontender, nondistended, no rebound or guarding MUSCULOSKELETAl: range of motion to the left lower extremity is limited due to pain of the left ankle. No bony tenderness throughout either leg and no deformities. NEURO: Awake and alert. Following commands, speech normal, no focal deficits SKIN:: Warm, dry. No rashes lesions or abrasions PSYCHIATRIC: Normal affect/mood, Objective Data Vital Signs Vital Signs: Vital Signs - 24 hr 03/09/25 16:00 03/09/25 16:00 03/09/25 20:00 Temperature 36.7 C Pulse Rate 70 71 77 Respiratory Rate 26 H Blood Pressure 140/75 Pulse Oximetry 99 Oxygen Delivery 03/09/25 20:02 03/09/25 20:17 03/09/25 20:38 Temperature 36.3 C L Pulse Rate 73 Respiratory Rate 18 Blood Pressure 140/75 Pulse Oximetry 97 91 Oxygen Delivery Room Air Room Air 03/09/25 20:38 03/09/25 20:43 03/09/25 22:15 Temperature Pulse Rate 88 87 84 Respiratory Rate 18 18 15 Blood Pressure Pulse Oximetry 91 Oxygen Delivery Autopap 03/10/25 00:00 03/10/25 02:05 03/10/25 02:06 Temperature Pulse Rate 71 70 70 Respiratory Rate 20 20 Blood Pressure Pulse Oximetry 92 Oxygen Delivery Autopap 03/10/25 02:13 03/10/25 04:00 03/10/25 04:21 Temperature 36.6 C Pulse Rate 68 82 70 Respiratory Rate 20 18 Blood Pressure 128/60 Pulse Oximetry 92 Oxygen Delivery 03/10/25 07:55 03/10/25 07:55 03/10/25 08:01 Temperature Pulse Rate 70 76 Respiratory Rate 20 20 Blood Pressure Pulse Oximetry 95 Oxygen Delivery Room Air 03/10/25 08:40 03/10/25 08:42 03/10/25 08:45 Temperature Pulse Rate 88 Respiratory Rate Blood Pressure 136/93 H Pulse Oximetry Oxygen Delivery Room Air 03/10/25 08:45 03/10/25 12:00 03/10/25 13:51 Temperature Pulse Rate 77 78 67 Respiratory Rate 20 Blood Pressure Pulse Oximetry Oxygen Delivery 03/10/25 13:58 03/10/25 14:00 Temperature 36.3 C L Pulse Rate 74 74 Respiratory Rate 20 16 Blood Pressure 118/65 Pulse Oximetry 95 Oxygen Delivery Intake/Output Intake/Output: Intake & Output 03/07/25 03/08/25 03/09/25 03/10/25 23:59 23:59 23:59 23:59 Intake Total 1400 2290 1752 640 Output Total 1650 2350 1250 Balance -250 -60 502 640 Meds/Results Medications: Active Medications Generic Name Dose Route Start Last Admin Trade Name Freq PRN Reason Stop Dose Admin Al Hydrox/Mg Hydrox/Simethicone 30 ml 03/05/25 20:52 Mag Hydrox/Al Hydrox/Simeth 30 Ml Udc PO Q6H PRN Indigestion Albuterol/Ipratropium 3 ml 03/06/25 09:25 03/10/25 13:49 Ipratropium 0.5 Mg/Albuterol Sulfate 2.5 Mg Ampul.Neb 3 Ml INHALATION 3 ml Q6HRT HEATHER Administration Apixaban 5 mg 03/08/25 21:00 03/10/25 08:42 Apixaban 5 Mg Tablet PO 5 mg Q12HR HEATHER Administration Aspirin 81 mg 03/06/25 08:00 03/10/25 08:42 Aspirin 81 Mg Chewable Tablet PO 81 mg DAILY@0800 [facility] Administration Cyclobenzaprine HCl 5 mg 03/07/25 23:02 03/10/25 01:39 Cyclobenzaprine Hcl 5 Mg Tablet PO 5 mg Q8H PRN Administration Muscle Spasm Docusate Sodium 100 mg 03/05/25 20:52 Docusate Sodium 100 Mg Capsule PO Q12H PRN Constipation Famotidine 40 mg 03/06/25 09:00 03/10/25 08:41 Famotidine 20 Mg Tablet PO 40 mg DAILY HEATHER Administration Furosemide 40 mg 03/09/25 09:00 03/10/25 14:05 Furosemide Inj 40 Mg/4 Ml Vial IV PUSH 40 mg TID HEATHER Administration Losartan Potassium 100 mg 03/06/25 09:00 03/10/25 08:41 Losartan Potassium 100 Mg Tablet PO 100 mg DAILY HEATHER Administration Metoprolol Succinate 50 mg 03/10/25 09:00 03/10/25 08:42 Metoprolol Succinate Ext Rel 50 Mg Tabcr PO 50 mg QAM HEATHER Administration Nitroglycerin 0.4 mg 03/05/25 20:48 Nitroglycerin Sl 0.4 Mg Tablet SUBLINGUAL Q5MIN PRN Chest Pain Ondansetron HCl 4 mg 03/05/25 20:52 Ondansetron Inj 4 Mg/2 Ml Vial IV PUSH Q6H PRN Nausea And Vomiting Radiology Results: ITS Impressions Abdomen Ultrasound 03/06/25 15:38 IMPRESSION: 1. Limited study as above. 2. The visualized liver is heterogeneous likely due to fatty infiltration or hepatocellular disease. Consider a liver mass CT or MRI for further assessment. Labs Labs: Laboratory Results - last 24 hr 03/09/25 03/10/25 18:10 04:53 WBC 7.0 7.0 RBC 5.38 5.02 Hgb 15.5 14.2 Hct 48.3 45.1 MCV 89.8 89.8 MCH 28.8 28.3 MCHC 32.1 31.5 L RDW 14.6 H 14.6 H Plt Count 203 174 MPV 10.4 10.1 Sodium 136 L 135 L Potassium 4.4 4.0 Chloride 95 L 98 Carbon Dioxide 34 H 31 H Anion Gap 7 6 BUN 27 H 27 H Creatinine 1.29 1.19 Estim Creat Clear Calc 80 90 Estimated GFR 58 L > 60 Glucose 133 H 111 H Calcium 9.0 8.7 Magnesium 2.3 2.2 Total Bilirubin 0.4 AST 52 ALT 60 H Alkaline Phosphatase 63 Total Protein 7.8 Albumin 4.1 Quality VTE Prophylaxis VTE prophylaxis: pharmacologic ordered (Eliquis 5 mg b.i.d.)
[2025-03-11] VITALS (21 sets, daily range): BP systolic 116–151; BP diastolic 60–74; PULSE 56–86; RESP 16–31; TEMP 36.2–36.7; O2SAT 90–95
[2025-03-11] MEDS: IPRATROPIUM 0.5 MG/ALBUTEROL SULFATE 2.5 MG AMPUL.NEB 3 ML INHALATION ×4 (01:38→19:43)
[2025-03-11] MEDS: CYCLOBENZAPRINE HCL 5 MG TABLET PO (02:47)
[2025-03-11 05:15] LABS: Hematocrit 44.8 % (42.0-52.0); Hemoglobin 14.7 g/dL (14.0-18.0); Mean Corpuscular HGB Conc 32.8 g/dl (32-36); Mean Corpuscular Hemoglobin 29.1 pg (26-34); Mean Corpuscular Volume 88.5 fl (80-100); Platelet Count Result 174 k/mm3 (150-375); Red Blood Count 5.06 M/mm3 (4.6-6.20); White Blood Count 6.9 K/mm3 (4.5-10.0)
[2025-03-11 05:36] LABS: Anion Gap 7 mmol/L (4-12); Blood Urea Nitrogen 31 mg/dL (9-20); Calcium 8.8 mg/dL (8.4-10.2); Carbon Dioxide 35 mmol/L (22-30); Chloride 91 mmol/L (98-107); Estimated CRCL calculation 70 ml/min; Estimated Glomerular Filt Rate 46; Glucose 114 mg/dL (65-110); Magnesium 2.1 mg/dL (1.6-2.3); Potassium 3.6 mmol/L (3.4-5.0); Sodium 133 mmol/L (137-145)
--- NOTE | 2025-03-11 08:52 | PM.IMPN ---
Progress Note: A&P Assessment and Plan (1) CHF (congestive heart failure): Qualifiers: Heart failure chronicity: unspecified Heart failure type: unspecified Qualified Code(s): I50.9 - Heart failure, unspecified Code(s): I50.9 - Heart failure, unspecified Status: Acute Assessment and Plan: Presented with chest tightness, shortness of breath 2D echo shows EF 45% without wall motion abnormality Continue aspirin, losartan 100 mg daily and metoprolol succinate 50 mg q.day Lasix decreased from 40 mg t.i.d. to b.i.d. due to worsening of kidney function Daily standing weight, strict I&Os, na <2g daily keep mag>2 and K>4 Fluid restriction to 1500 cc daily (2) Elevated troponin: Code(s): R79.89 - Other specified abnormal findings of blood chemistry Status: Acute Assessment and Plan: Likely secondary to AFib RVR-demand mismatch No chest pain, on sinus rythm (3) Acute hypoxic respiratory failure: Code(s): J96.01 - Acute respiratory failure with hypoxia Status: Acute Assessment and Plan: On room air Not on Acute respiratory distress (4) Obstructive sleep apnea: Code(s): G47.33 - Obstructive sleep apnea (adult) (pediatric) Status: Acute Assessment and Plan: He has CPAP at home, encourage routine use Continue CPAP. (5) Essential hypertension: Code(s): I10 - Essential (primary) hypertension Status: Acute Assessment and Plan: BP goal<130/80 Continue losartan (6) DONALD (acute kidney injury): Code(s): N17.9 - Acute kidney failure, unspecified Status: Acute Assessment and Plan: Likely secondary to over-diuresis Will discuss with the neuro ophthalmologist to cut down with the diuresis Lasix 40 mg b.i.d. from t.i.d. Subjective Date/time seen: 03/11/25 08:52 Interval history: No acute event overnight. He wheezes bilaterally today on my exam. Exam Narrative: APPEARANCE: No acute distress, morbidly obese, oral crowding EYES: EOMI HEENT: Normocephalic, atraumatic, OMM RESPIRATORY: Wheezing on auscultation bilaterally. CARDIOVASCULAR: RRR, S1 and S2 without murmurs rubs or gallops. ABDOMINAL: Protuberant, Soft, nontender, nondistended, no rebound or guarding MSK: Moves his extremity spontaneously. sit in the chair on exam. He has significant swelling in the leg bilaterally. NEURO: Awake and alert. Following commands, speech normal, no focal deficits SKIN:: Warm, dry. No rashes lesions or abrasions PSYCHIATRIC: Normal affect/mood, Const: Other: Obese, developmental delay Neck: Other: Short and thick neck Chest: Chest palpation & inspection: normal inspection of the chest and tenderness Resp: Auscultation: wheezes scattered wheezes Cardio: Jugular venous distension: no JVD Rate: regular rate Rhythm: regular rhythm GI: Auscultation: normal bowel sounds Extrem: Other: Bilateral lower extremity edema, reduce compared to yesterday, pitting 2+ Objective Data Vital Signs Vital Signs: Vital Signs - 24 hr 03/10/25 12:00 03/10/25 13:51 03/10/25 13:58 Temperature Pulse Rate 78 67 74 Respiratory Rate 20 20 Blood Pressure Pulse Oximetry Oxygen Delivery 03/10/25 14:00 03/10/25 16:00 03/10/25 19:48 Temperature 36.3 C L Pulse Rate 74 71 76 Respiratory Rate 16 20 Blood Pressure 118/65 Pulse Oximetry 95 Oxygen Delivery 03/10/25 19:51 03/10/25 20:00 03/10/25 20:04 Temperature Pulse Rate 74 Respiratory Rate Blood Pressure Pulse Oximetry 94 Oxygen Delivery Room Air 03/10/25 22:28 03/10/25 22:30 03/11/25 00:00 Temperature 36.1 C L Pulse Rate 80 76 73 Respiratory Rate 18 28 H Blood Pressure 133/74 Pulse Oximetry 98 94 Oxygen Delivery Autopap 03/11/25 01:38 03/11/25 01:42 03/11/25 01:46 Temperature Pulse Rate 79 79 79 Respiratory Rate 16 20 16 Blood Pressure Pulse Oximetry 94 Oxygen Delivery Autopap 03/11/25 04:00 03/11/25 05:14 03/11/25 08:26 Temperature 36.2 C L Pulse Rate 70 77 76 Respiratory Rate 16 20 Blood Pressure 137/74 Pulse Oximetry 93 95 Oxygen Delivery Room Air 03/11/25 08:26 Temperature Pulse Rate 76 Respiratory Rate 20 Blood Pressure Pulse Oximetry Oxygen Delivery Intake/Output Intake/Output: Intake & Output 03/08/25 03/09/25 03/10/2525 23:59 23:59 23:59 23:59 Intake Total 2290 1752 1380 400 Output Total 2350 1250 Balance -60 502 1380 400 Meds/Results Medications: Active Medications Generic Name Dose Route Start Last Admin Trade Name Freq PRN Reason Stop Dose Admin Al Hydrox/Mg Hydrox/Simethicone 30 ml 03/05/25 20:52 Mag Hydrox/Al Hydrox/Simeth 30 Ml Udc PO Q6H PRN Indigestion Albuterol/Ipratropium 3 ml 03/06/25 09:25 03/11/25 08:25 Ipratropium 0.5 Mg/Albuterol Sulfate 2.5 Mg Ampul.Neb 3 Ml INHALATION 3 ml Q6HRT HEATHER Administration Apixaban 5 mg 03/08/25 21:00 03/10/25 20:10 Apixaban 5 Mg Tablet PO 5 mg Q12HR [facility] Administration Aspirin 81 mg 03/06/25 08:00 03/10/25 08:42 Aspirin 81 Mg Chewable Tablet PO 81 mg DAILY@0800 [facility] Administration Cyclobenzaprine HCl 5 mg 03/07/25 23:02 03/10/25 21:15 Cyclobenzaprine Hcl 5 Mg Tablet PO 5 mg Q8H PRN Administration Muscle Spasm Docusate Sodium 100 mg 03/05/25 20:52 Docusate Sodium 100 Mg Capsule PO Q12H PRN Constipation Famotidine 40 mg 03/06/25 09:00 03/10/25 08:41 Famotidine 20 Mg Tablet PO 40 mg DAILY [facility] Administration Furosemide 40 mg 03/09/25 09:00 03/10/25 17:19 Furosemide Inj 40 Mg/4 Ml Vial IV PUSH 40 mg TID [facility]ATHER Administration Losartan Potassium 100 mg 03/06/25 09:00 03/10/25 08:41 Losartan Potassium 100 Mg Tablet PO 100 mg DAILY [facility] Administration Metoprolol Succinate 50 mg 03/10/25 09:00 03/10/25 08:42 Metoprolol Succinate Ext Rel 50 Mg Tabcr PO 50 mg QAM [facility] Administration Nitroglycerin 0.4 mg 03/05/25 20:48 Nitroglycerin Sl 0.4 Mg Tablet SUBLINGUAL Q5MIN PRN Chest Pain Ondansetron HCl 4 mg 03/05/25 20:52 Ondansetron Inj 4 Mg/2 Ml Vial IV PUSH Q6H PRN Nausea And Vomiting Radiology Results: ITS Impressions Abdomen Ultrasound 03/06/25 15:38 IMPRESSION: 1. Limited study as above. 2. The visualized liver is heterogeneous likely due to fatty infiltration or hepatocellular disease. Consider a liver mass CT or MRI for further assessment. Abdomen MRI 03/11/25 08:07 IMPRESSION: 1. Diffuse hepatic steatosis with no hepatic masses or other focal hepatic lesions identified. Labs Labs: Laboratory Results - last 24 hr 03/11/25 04:47 WBC 6.9 RBC 5.06 Hgb 14.7 Hct 44.8 MCV 88.5 MCH 29.1 MCHC 32.8 RDW 14.6 H Plt Count 174 MPV 10.5 H Sodium 133 L Potassium 3.6 Chloride 91 L Carbon Dioxide 35 H Anion Gap 7 BUN 31 H Creatinine 1.57 H Estim Creat Clear Calc 70 Estimated GFR 46 L Glucose 114 H Calcium 8.8 Magnesium 2.1 Quality VTE Prophylaxis VTE prophylaxis: pharmacologic ordered (Eliquis 5 mg b.i.d.)
[2025-03-11] MEDS: LOSARTAN POTASSIUM 100 MG TABLET PO (09:05)
[2025-03-11] MEDS: APIXABAN 5 MG TABLET PO ×2 (09:05→20:34)
[2025-03-11] MEDS: ASPIRIN 81 MG CHEWABLE TABLET PO (09:05)
[2025-03-11 09:06] LABS: Alanine Aminotransferase 91 U/L (6-50); Albumin Level 3.9 g/dL (3.5-5.1); Alkaline Phosphatase 75 U/L (38-126); Aspartate Amino Transferase 70 U/L (17-59); Bilirubin,Total 0.6 mg/dL (0.2-1.3); Total Protein 7.1 g/dL (6.3-8.2)
[2025-03-11] MEDS: FUROSEMIDE INJ 40 MG/4 ML VIAL IV PUSH ×2 (09:06→17:35)
[2025-03-11] MEDS: METOPROLOL SUCCINATE EXT REL 50 MG TABCR PO (09:06)
[2025-03-11] MEDS: FAMOTIDINE 20 MG TABLET 40 MG PO (09:06)
--- NOTE | 2025-03-11 09:19 | PM.PNCARD ---
Progress Note: A&P Assessment and Plan (1) Atrial fibrillation: Code(s): I48.91 - Unspecified atrial fibrillation Status: Acute Plan Pleasant 54-year-old male with a past medical history of intellectual disability, morbid obesity, obstructive sleep apnea with CPAP, GERD and essential hypertension 1. HTN 2. PAF/Flutter --- CHADSVASC 2 3. Morbid Obesity 4. 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 -regards to atrial fibrillation, currently in sinus rhythm. Continue Eliquis 5 mg b.i.d.. Increase Toprol-XL to 50 mg daily. -regards hypertension controlled. Continue metoprolol and losartan. -does to morbid obesity continue CPAP. -EF 45%. 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 Continue Lasix 40 mg IV, decrease to b.i.d. - Still has Significant edema bilaterally, but SCr 1.57 today from 1.19. Will add BHAVNA hose. 1500cc fluid restriction Subjective Date/time seen: 03/11/25 09:19 Interval history: Cardiology follow up visit Date of service 03/08/2025: Does not have any complaints at the time of my visit. Denies palpitations, chest pain, shortness of breath. Date of service /03/09/2025-resting comfortably on the chair. No complaints. On telemetry sinus rhythm with PACs. He does have lower extremity edema. Date of service [id number] comfortably in chair. Still has edema. Maintaining sinus rhythm. Date of service 03/11/2025: No acute changes overnight. He complains of cramping in his left calf last night. No other complaints. No chest pain, palpitations, shortness of breath. Review of Systems Review of Systems: 12 systems were reviewed with pertinent positives and negatives per HPI. Except as documented in the HPI, all other systems were reviewed and are negative. Exam Const: General: comfortable, no acute distress, alert and awake Orientation/consciousness: patient oriented x3 HENMT: Head: normal to inspection Eyes: General: appearance normal, both eyes and all related structures Pupils: Equal, round and reactive pupils present Neck: Neck: normal visual inspection and supple Resp: Effort & Inspection: normal respiratory effort Auscultation: clear to auscultation bilaterally and diminished lung sounds Cardio: Rate: regular rate Rhythm: regular rhythm Heart sounds: S1 normal heart sound present, S2 normal heart sound present and no murmurs GI: Auscultation: normal bowel sounds Skin: General skin exam: normal color Neuro: General: patient oriented x3 Cranial nerves: Yes Equal, round and reactive pupils present Extrem: General: normal to inspection and edema (pedal edema) Psych: Appearance: grossly normal Mental Status: mental status grossly normal Objective Data Vital Signs Vital Signs: Vital Signs - 24 hr 03/10/25 12:00 03/10/25 13:51 03/10/25 13:58 Temperature Pulse Rate 78 67 74 Respiratory Rate 20 20 Blood Pressure Pulse Oximetry Oxygen Delivery 03/10/25 14:00 03/10/25 16:00 03/10/25 19:48 Temperature 36.3 C L Pulse Rate 74 71 76 Respiratory Rate 16 20 Blood Pressure 118/65 Pulse Oximetry 95 Oxygen Delivery 03/10/25 19:51 03/10/25 20:00 03/10/25 20:04 Temperature Pulse Rate 74 Respiratory Rate Blood Pressure Pulse Oximetry 94 Oxygen Delivery Room Air 03/10/25 22:28 03/10/25 22:30 03/11/25 00:00 Temperature 36.1 C L Pulse Rate 80 76 73 Respiratory Rate 18 28 H Blood Pressure 133/74 Pulse Oximetry 98 94 Oxygen Delivery Autopap 03/11/25 01:38 03/11/25 01:42 03/11/25 01:46 Temperature Pulse Rate 79 79 79 Respiratory Rate 16 20 16 Blood Pressure Pulse Oximetry 94 Oxygen Delivery Autopap 03/11/25 04:00 03/11/25 05:14 03/11/25 08:26 Temperature 36.2 C L Pulse Rate 70 77 76 Respiratory Rate 16 20 Blood Pressure 137/74 Pulse Oximetry 93 95 Oxygen Delivery Room Air 03/11/25 08:26 03/11/25 09:00 03/11/25 09:06 Temperature Pulse Rate 76 86 Respiratory Rate 20 Blood Pressure 151/67 H Pulse Oximetry Oxygen Delivery Intake/Output Intake/Output: Intake & Output 03/08/25 03/09/25 03/10/25 03/11/25 23:59 23:59 23:59 23:59 Intake Total 2290 1752 1380 640 Output Total 2350 1250 Balance -60 502 1380 640 Meds/Results Medications: Active Medications Generic Name Dose Route Start Last Admin Trade Name Freq PRN Reason Stop Dose Admin Al Hydrox/Mg Hydrox/Simethicone 30 ml 03/05/25 20:52 Mag Hydrox/Al Hydrox/Simeth 30 Ml Udc PO Q6H PRN Indigestion Albuterol/Ipratropium 3 ml 03/06/25 09:25 03/11/25 08:25 Ipratropium 0.5 Mg/Albuterol Sulfate 2.5 Mg Ampul.Neb 3 Ml INHALATION 3 ml Q6HRT HEATHER Administration Apixaban 5 mg 03/08/25 21:00 03/11/25 09:05 Apixaban 5 Mg Tablet PO 5 mg Q12HR [facility]ATHER Administration Aspirin 81 mg 03/06/25 08:00 03/11/25 09:05 Aspirin 81 Mg Chewable Tablet PO 81 mg DAILY@0800 [facility] Administration Cyclobenzaprine HCl 5 mg 03/07/25 23:02 03/10/25 21:15 Cyclobenzaprine Hcl 5 Mg Tablet PO 5 mg Q8H PRN Administration Muscle Spasm Docusate Sodium 100 mg 03/05/25 20:52 Docusate Sodium 100 Mg Capsule PO Q12H PRN Constipation Famotidine 40 mg 03/06/25 09:00 03/11/25 09:06 Famotidine 20 Mg Tablet PO 40 mg DAILY [facility] Administration Furosemide 40 mg 03/09/25 09:00 03/11/25 09:06 Furosemide Inj 40 Mg/4 Ml Vial IV PUSH 40 mg TID [facility] Administration Losartan Potassium 100 mg 03/06/25 09:00 03/11/25 09:05 Losartan Potassium 100 Mg Tablet PO 100 mg DAILY [facility] Administration Metoprolol Succinate 50 mg 03/10/25 09:00 03/11/25 09:06 Metoprolol Succinate Ext Rel 50 Mg Tabcr PO 50 mg QAM [facility] Administration Nitroglycerin 0.4 mg 03/05/25 20:48 Nitroglycerin Sl 0.4 Mg Tablet SUBLINGUAL Q5MIN PRN Chest Pain Ondansetron HCl 4 mg 03/05/25 20:52 Ondansetron Inj 4 Mg/2 Ml Vial IV PUSH Q6H PRN Nausea And Vomiting Radiology Results: ITS Impressions Abdomen Ultrasound 03/06/25 15:38 IMPRESSION: 1. Limited study as above. 2. The visualized liver is heterogeneous likely due to fatty infiltration or hepatocellular disease. Consider a liver mass CT or MRI for further assessment. Abdomen MRI 03/11/25 08:07 IMPRESSION: 1. Diffuse hepatic steatosis with no hepatic masses or other focal hepatic lesions identified. Labs Labs: Laboratory Results - last 24 hr 03/11/25 04:47 WBC 6.9 RBC 5.06 Hgb 14.7 Hct 44.8 MCV 88.5 MCH 29.1 MCHC 32.8 RDW 14.6 H Plt Count 174 MPV 10.5 H Sodium 133 L Potassium 3.6 Chloride 91 L Carbon Dioxide 35 H Anion Gap 7 BUN 31 H Creatinine 1.57 H Estim Creat Clear Calc 70 Estimated GFR 46 L Glucose 114 H Calcium 8.8 Magnesium 2.1 Total Bilirubin 0.6 Direct Bilirubin 0.0 AST 70 H ALT 91 H Alkaline Phosphatase 75 Total Protein 7.1 Albumin 3.9 Quality VTE Prophylaxis VTE prophylaxis: pharmacologic ordered (Eliquis 5 mg b.i.d.)
[2025-03-12] VITALS (18 sets, daily range): BP systolic 100–101; BP diastolic 55–80; PULSE 60–83; RESP 14–27; TEMP 36.3–36.6; O2SAT 91–99
[2025-03-12] MEDS: IPRATROPIUM 0.5 MG/ALBUTEROL SULFATE 2.5 MG AMPUL.NEB 3 ML INHALATION ×4 (02:23→21:06)
[2025-03-12 06:22] LABS: Hematocrit 47.4 % (42.0-52.0); Hemoglobin 14.7 g/dL (14.0-18.0); Mean Corpuscular HGB Conc 31.0 g/dl (32-36); Mean Corpuscular Hemoglobin 28.5 pg (26-34); Mean Corpuscular Volume 92.0 fl (80-100); Platelet Count Result 171 k/mm3 (150-375); Red Blood Count 5.15 M/mm3 (4.6-6.20); White Blood Count 7.2 K/mm3 (4.5-10.0)
[2025-03-12 06:53] LABS: Anion Gap 9 mmol/L (4-12); Blood Urea Nitrogen 42 mg/dL (9-20); Calcium 9.1 mg/dL (8.4-10.2); Carbon Dioxide 34 mmol/L (22-30); Chloride 90 mmol/L (98-107); Estimated CRCL calculation 59 ml/min; Estimated Glomerular Filt Rate 37; Glucose 112 mg/dL (65-110); Magnesium 2.4 mg/dL (1.6-2.3); Potassium 3.7 mmol/L (3.4-5.0); Sodium 133 mmol/L (137-145)
[2025-03-12] MEDS: ASPIRIN 81 MG CHEWABLE TABLET PO (08:19)
[2025-03-12] MEDS: FAMOTIDINE 20 MG TABLET 40 MG PO (08:19)
[2025-03-12] MEDS: APIXABAN 5 MG TABLET PO ×2 (08:19→20:32)
[2025-03-12] MEDS: FUROSEMIDE INJ 40 MG/4 ML VIAL IV PUSH (08:19)
[2025-03-12] MEDS: LOSARTAN POTASSIUM 100 MG TABLET PO (08:19)
[2025-03-12] MEDS: METOPROLOL SUCCINATE EXT REL 50 MG TABCR PO (08:19)
--- NOTE | 2025-03-12 10:28 | PM.PNCARD ---
Progress Note: A&P Assessment and Plan (1) CHF (congestive heart failure): Qualifiers: Heart failure chronicity: unspecified Heart failure type: unspecified Qualified Code(s): I50.9 - Heart failure, unspecified Code(s): I50.9 - Heart failure, unspecified Status: Acute (2) Atrial fibrillation: Code(s): I48.91 - Unspecified atrial fibrillation Status: Acute Plan 54-year-old man with: Paroxysmal atrial fibrillation likely related to sleep apnea which is not well treated at home as his CPAP machine is not functioning properly. He is still for the most part in sinus rhythm earlier this morning was in AFib now is in sinus rhythm asymptomatic of his arrhythmia. Volume overload being treated with IV furosemide with improvement. Patient is labs demonstrate that he is now developing a significant pre renal state will need to hold his IV diuretics at this time Jay Lam MD [facility] Subjective Date/time seen: 03/12/25 10:28 Interval history: Cardiology follow up visit Date of service 03/08/2025: Does not have any complaints at the time of my visit. Denies palpitations, chest pain, shortness of breath. Date of service /03/09/2025-resting comfortably on the chair. No complaints. On telemetry sinus rhythm with PACs. He does have lower extremity edema. Date of service [id number] comfortably in chair. Still has edema. Maintaining sinus rhythm. Date of service 03/11/2025: No acute changes overnight. He complains of cramping in his left calf last night. No other complaints. No chest pain, palpitations, shortness of breath. Date of service 03/12/2025: Patient resting comfortably sleeping in the bedside chair upon awakening he has no complaints of dyspnea. He did not have a good understanding of atrial fibrillation explain the details of his arrhythmia to him in the room. Exam Narrative: Morbidly obese Patient is comfortable, NAD HEENT: eyes are clear and none icteric LUNGS:CTA HEART: RR S1S2 ABD: BS+, Soft and nontender Lower extremities: no edema SKIN: nonjaundiced Neuro: grossly intact. Const: General: comfortable, no acute distress, alert and awake Orientation/consciousness: patient oriented x3 HENMT: Head: normal to inspection Eyes: General: appearance normal, both eyes and all related structures Pupils: Equal, round and reactive pupils present Neck: Neck: normal visual inspection and supple Resp: Effort & Inspection: normal respiratory effort Auscultation: clear to auscultation bilaterally and diminished lung sounds Cardio: Rate: regular rate Rhythm: regular rhythm Heart sounds: S1 normal heart sound present, S2 normal heart sound present and no murmurs GI: Auscultation: normal bowel sounds Skin: General skin exam: normal color Neuro: General: patient oriented x3 Cranial nerves: Yes Equal, round and reactive pupils present Extrem: General: normal to inspection and edema (pedal edema) Other: Mild edema persists Psych: Appearance: grossly normal Mental Status: mental status grossly normal Objective Data Vital Signs Vital Signs: Vital Signs - 24 hr 03/11/25 12:00 03/11/25 13:50 03/11/25 13:50 Temperature Pulse Rate 72 79 79 Respiratory Rate 20 20 Blood Pressure Pulse Oximetry 93 Oxygen Delivery Room Air Fraction of Inspired Oxygen 03/11/25 13:57 03/11/25 14:00 03/11/25 16:00 Temperature 36.7 C Pulse Rate 78 80 75 Respiratory Rate 20 18 Blood Pressure 126/60 Pulse Oximetry 94 Oxygen Delivery Fraction of Inspired Oxygen 03/11/25 19:43 03/11/25 19:43 03/11/25 19:55 Temperature Pulse Rate 69 69 70 Respiratory Rate 20 20 20 Blood Pressure Pulse Oximetry 90 Oxygen Delivery Room Air Fraction of Inspired Oxygen 03/11/25 20:00 03/11/25 22:00 03/11/25 22:35 Temperature 36.2 C L Pulse Rate 79 77 56 L Respiratory Rate 16 31 H Blood Pressure 116/64 Pulse Oximetry 94 91 Oxygen Delivery Autopap Fraction of Inspired Oxygen 03/11/25 22:35 03/12/25 00:00 03/12/25 02:23 Temperature Pulse Rate 56 L 75 69 Respiratory Rate 31 H 27 H Blood Pressure Pulse Oximetry 91 96 Oxygen Delivery Room Air Autopap Fraction of Inspired Oxygen 03/12/25 02:23 03/12/25 04:00 03/12/25 06:00 Temperature 36.3 C L Pulse Rate 69 72 75 Respiratory Rate 24 H 18 Blood Pressure 101/80 Pulse Oximetry 99 Oxygen Delivery Fraction of Inspired Oxygen 03/12/25 07:34 03/12/25 07:34 03/12/25 07:41 Temperature Pulse Rate 60 78 Respiratory Rate 18 20 Blood Pressure Pulse Oximetry 96 Oxygen Delivery Room Air Fraction of Inspired Oxygen 03/12/25 08:19 Temperature Pulse Rate 83 Respiratory Rate Blood Pressure Pulse Oximetry Oxygen Delivery Fraction of Inspired Oxygen Intake/Output Intake/Output: Intake & Output 03/09/25 03/10/25 03/11/25 03/12/25 23:59 23:59 23:59 23:59 Intake Total 1752 1380 1330 300 Output Total 1250 Balance 502 1380 1330 300 Meds/Results Medications: Active Medications Generic Name Dose Route Start Last Admin Trade Name Freq PRN Reason Stop Dose Admin Al Hydrox/Mg Hydrox/Simethicone 30 ml 03/05/25 20:52 Mag Hydrox/Al Hydrox/Simeth 30 Ml Udc PO Q6H PRN Indigestion Albuterol/Ipratropium 3 ml 03/06/25 09:25 03/12/25 07:32 Ipratropium 0.5 Mg/Albuterol Sulfate 2.5 Mg Ampul.Neb 3 Ml INHALATION 3 ml Q6HRT HEATHER Administration Apixaban 5 mg 03/08/25 21:00 03/12/25 08:19 Apixaban 5 Mg Tablet PO 5 mg Q12HR HEATHER Administration Aspirin 81 mg 03/06/25 08:00 03/12/25 08:19 Aspirin 81 Mg Chewable Tablet PO 81 mg DAILY@0800 [facility] Administration Cyclobenzaprine HCl 5 mg 03/07/25 23:02 03/10/25 21:15 Cyclobenzaprine Hcl 5 Mg Tablet PO 5 mg Q8H PRN Administration Muscle Spasm Docusate Sodium 100 mg 03/05/25 20:52 Docusate Sodium 100 Mg Capsule PO Q12H PRN Constipation Famotidine 40 mg 03/06/25 09:00 03/12/25 08:19 Famotidine 20 Mg Tablet PO 40 mg DAILY HEATHER Administration Losartan Potassium 100 mg 03/06/25 09:00 03/12/25 08:19 Losartan Potassium 100 Mg Tablet PO 100 mg DAILY HEATHER Administration Metoprolol Succinate 50 mg 03/10/25 09:00 03/12/25 08:19 Metoprolol Succinate Ext Rel 50 Mg Tabcr PO 50 mg QAM HEATHER Administration Nitroglycerin 0.4 mg 03/05/25 20:48 Nitroglycerin Sl 0.4 Mg Tablet SUBLINGUAL Q5MIN PRN Chest Pain Ondansetron HCl 4 mg 03/05/25 20:52 Ondansetron Inj 4 Mg/2 Ml Vial IV PUSH Q6H PRN Nausea And Vomiting Radiology Results: ITS Impressions Abdomen Ultrasound 03/06/25 15:38 IMPRESSION: 1. Limited study as above. 2. The visualized liver is heterogeneous likely due to fatty infiltration or hepatocellular disease. Consider a liver mass CT or MRI for further assessment. Abdomen MRI 03/11/25 08:07 IMPRESSION: 1. Diffuse hepatic steatosis with no hepatic masses or other focal hepatic lesions identified. Labs Labs: Laboratory Results - last 24 hr 03/12/25 05:37 WBC 7.2 RBC 5.15 Hgb 14.7 Hct 47.4 MCV 92.0 MCH 28.5 MCHC 31.0 L RDW 14.6 H Plt Count 171 MPV 10.2 Sodium 133 L Potassium 3.7 Chloride 90 L Carbon Dioxide 34 H Anion Gap 9 BUN 42 H D Creatinine 1.89 H Estim Creat Clear Calc 59 Estimated GFR 37 L Glucose 112 H Calcium 9.1 Magnesium 2.4 H
--- NOTE | 2025-03-12 10:58 | PCNWS ---
Weekly nutritional screen. Patient is tolerating current diet with adequate intake. No weight loss reported. No nutritional needs at this time.
--- NOTE | 2025-03-12 11:57 | PM.IMPN ---
Progress Note: A&P Assessment and Plan (1) CHF (congestive heart failure): Qualifiers: Heart failure chronicity: unspecified Heart failure type: unspecified Qualified Code(s): I50.9 - Heart failure, unspecified Code(s): I50.9 - Heart failure, unspecified Status: Acute Assessment and Plan: Presented with chest tightness, shortness of breath 2D echo shows EF 45% without wall motion abnormality Continue aspirin, losartan 100 mg daily and metoprolol succinate 50 mg q.day Lasix decreased from 40 mg t.i.d. to b.i.d. due to worsening of kidney function Daily standing weight, strict I&Os, na <2g daily keep mag>2 and K>4 Fluid restriction to 1500 cc daily (2) Elevated troponin: Code(s): R79.89 - Other specified abnormal findings of blood chemistry Status: Acute Assessment and Plan: Likely secondary to AFib RVR-demand mismatch No chest pain, on sinus rythm (3) Acute hypoxic respiratory failure: Code(s): J96.01 - Acute respiratory failure with hypoxia Status: Acute Assessment and Plan: On room air Not on Acute respiratory distress (4) Obstructive sleep apnea: Code(s): G47.33 - Obstructive sleep apnea (adult) (pediatric) Status: Acute Assessment and Plan: He has CPAP at home, encourage routine use Continue CPAP. (5) Essential hypertension: Code(s): I10 - Essential (primary) hypertension Status: Acute Assessment and Plan: BP goal<130/80 Hold losartan due to donald (6) DOANLD (acute kidney injury): Code(s): N17.9 - Acute kidney failure, unspecified Status: Acute Assessment and Plan: Likely secondary to over-diuresis Will discuss with the computer science intern to cut down with the diuresis Currently Lasix and losartan on hold Subjective Date/time seen: 03/12/25 11:57 Interval history: Holding losartan due to worsening renal function. Patient Lasix already on hold. Will do CBC CMP with a BNP tomorrow. Called his brother and updated his condition Review of Systems Review of Systems: 12 systems were reviewed with pertinent positives and negatives per HPI. Except as documented in the HPI, all other systems were reviewed and are negative. Exam Narrative: APPEARANCE: No acute distress, morbidly obese, oral crowding EYES: EOMI HEENT: Normocephalic, atraumatic, OMM RESPIRATORY: Wheezing on auscultation bilaterally. CARDIOVASCULAR: RRR, S1 and S2 without murmurs rubs or gallops. ABDOMINAL: Protuberant, Soft, nontender, nondistended, no rebound or guarding MSK: Moves his extremity spontaneously. sit in the chair on exam. He has significant swelling in the leg bilaterally. NEURO: Awake and alert. Following commands, speech normal, no focal deficits SKIN:: Warm, dry. No rashes lesions or abrasions PSYCHIATRIC: Normal affect/mood, Const: Other: Obese, developmental delay Neck: Other: Short and thick neck Chest: Chest palpation & inspection: normal inspection of the chest and tenderness Resp: Auscultation: wheezes scattered wheezes Cardio: Jugular venous distension: no JVD Rate: regular rate Rhythm: regular rhythm GI: Auscultation: normal bowel sounds Extrem: Other: Bilateral lower extremity edema, reduce compared to yesterday, pitting 2+ Objective Data Vital Signs Vital Signs: Vital Signs - 24 hr 03/11/25 12:00 03/11/25 13:50 03/11/25 13:50 Temperature Pulse Rate 72 79 79 Respiratory Rate 20 20 Blood Pressure Pulse Oximetry 93 Oxygen Delivery Room Air Fraction of Inspired Oxygen 03/11/25 13:57 03/11/25 14:00 03/11/25 16:00 Temperature 98.1 F Pulse Rate 78 80 75 Respiratory Rate 20 18 Blood Pressure 126/60 Pulse Oximetry 94 Oxygen Delivery Fraction of Inspired Oxygen 03/11/25 19:43 03/11/25 19:43 03/11/25 19:55 Temperature Pulse Rate 69 69 70 Respiratory Rate 20 20 20 Blood Pressure Pulse Oximetry 90 Oxygen Delivery Room Air Fraction of Inspired Oxygen 03/11/25 20:00 03/11/25 22:00 03/11/25 22:35 Temperature 97.2 F L Pulse Rate 79 77 56 L Respiratory Rate 16 31 H Blood Pressure 116/64 Pulse Oximetry 94 91 Oxygen Delivery Autopap Fraction of Inspired Oxygen 03/11/25 22:35 03/12/25 00:00 03/12/25 02:23 Temperature Pulse Rate 56 L 75 69 Respiratory Rate 31 H 27 H Blood Pressure Pulse Oximetry 91 96 Oxygen Delivery Room Air Autopap Fraction of Inspired Oxygen 03/12/25 02:23 03/12/25 04:00 03/12/25 06:00 Temperature 97.3 F L Pulse Rate 69 72 75 Respiratory Rate 24 H 18 Blood Pressure 101/80 Pulse Oximetry 99 Oxygen Delivery Fraction of Inspired Oxygen 03/12/25 07:34 03/12/25 07:34 03/12/25 07:41 Temperature Pulse Rate 60 78 Respiratory Rate 18 20 Blood Pressure Pulse Oximetry 96 Oxygen Delivery Room Air Fraction of Inspired Oxygen 03/12/25 08:17 03/12/25 08:19 Temperature Pulse Rate 83 Respiratory Rate Blood Pressure Pulse Oximetry Oxygen Delivery Room Air Fraction of Inspired Oxygen Intake/Output Intake/Output: Intake & Output 03/09/25 03/10/25 03/11/25 03/12/25 23:59 23:59 23:59 23:59 Intake Total 1752 1380 1330 300 Output Total 1250 Balance 502 1380 1330 300 Meds/Results Medications: Active Medications Generic Name Dose Route Start Last Admin Trade Name Freq PRN Reason Stop Dose Admin Al Hydrox/Mg Hydrox/Simethicone 30 ml 03/05/25 20:52 Mag Hydrox/Al Hydrox/Simeth 30 Ml Udc PO Q6H PRN Indigestion Albuterol/Ipratropium 3 ml 03/06/25 09:25 03/12/25 07:32 Ipratropium 0.5 Mg/Albuterol Sulfate 2.5 Mg Ampul.Neb 3 Ml INHALATION 3 ml Q6HRT HEATHER Administration Apixaban 5 mg 03/08/25 21:00 03/12/25 08:19 Apixaban 5 Mg Tablet PO 5 mg Q12HR [facility]ATH[facility] Administration Aspirin 81 mg 03/06/25 08:00 03/12/25 08:19 Aspirin 81 Mg Chewable Tablet PO 81 mg DAILY@0800 [facility] Administration Cyclobenzaprine HCl 5 mg 03/07/25 23:02 03/10/25 21:15 Cyclobenzaprine Hcl 5 Mg Tablet PO 5 mg Q8H PRN Administration Muscle Spasm Docusate Sodium 100 mg 03/05/25 20:52 Docusate Sodium 100 Mg Capsule PO Q12H PRN Constipation Famotidine 40 mg 03/06/25 09:00 03/12/25 08:19 Famotidine 20 Mg Tablet PO 40 mg DAILY [facility] Administration Losartan Potassium 100 mg 03/06/25 09:00 03/12/25 08:19 Losartan Potassium 100 Mg Tablet PO 100 mg DAILY [facility] Administration Metoprolol Succinate 50 mg 03/10/25 09:00 03/12/25 08:19 Metoprolol Succinate Ext Rel 50 Mg Tabcr PO 50 mg QAM [facility]ATHER Administration Nitroglycerin 0.4 mg 03/05/25 20:48 Nitroglycerin Sl 0.4 Mg Tablet SUBLINGUAL Q5MIN PRN Chest Pain Ondansetron HCl 4 mg 03/05/25 20:52 Ondansetron Inj 4 Mg/2 Ml Vial IV PUSH Q6H PRN Nausea And Vomiting Radiology Results: ITS Impressions Abdomen Ultrasound 03/06/25 15:38 IMPRESSION: 1. Limited study as above. 2. The visualized liver is heterogeneous likely due to fatty infiltration or hepatocellular disease. Consider a liver mass CT or MRI for further assessment. Abdomen MRI 03/11/25 08:07 IMPRESSION: 1. Diffuse hepatic steatosis with no hepatic masses or other focal hepatic lesions identified. Labs Labs: Laboratory Results - last 24 hr 03/12/25 05:37 WBC 7.2 RBC 5.15 Hgb 14.7 Hct 47.4 MCV 92.0 MCH 28.5 MCHC 31.0 L RDW 14.6 H Plt Count 171 MPV 10.2 Sodium 133 L Potassium 3.7 Chloride 90 L Carbon Dioxide 34 H Anion Gap 9 BUN 42 H D Creatinine 1.89 H Estim Creat Clear Calc 59 Estimated GFR 37 L Glucose 112 H Calcium 9.1 Magnesium 2.4 H Quality VTE Prophylaxis VTE prophylaxis: pharmacologic ordered (Eliquis 5 mg b.i.d.) Hospitalist MIPS Advance Care Plan I have confirmed that the patient's Advanced Care Plan is present, code status is documented, or surrogate decision maker is listed in patient medical record.: Yes Medication Reconciliation I have utilized all available resources to obtain, update and review the patients current medications (includes all prescriptions, OTC, herbals, cannabis, and nutritional supplements).: Yes
[2025-03-13] VITALS (17 sets, daily range): BP systolic 132–148; BP diastolic 63–73; PULSE 62–78; RESP 18–24; TEMP 36.3–36.6; O2SAT 93–95
[2025-03-13] MEDS: IPRATROPIUM 0.5 MG/ALBUTEROL SULFATE 2.5 MG AMPUL.NEB 3 ML INHALATION ×4 (01:46→21:22)
[2025-03-13 06:47] LABS: Hematocrit 46.1 % (42.0-52.0); Hemoglobin 14.5 g/dL (14.0-18.0); Mean Corpuscular HGB Conc 31.5 g/dl (32-36); Mean Corpuscular Hemoglobin 28.5 pg (26-34); Mean Corpuscular Volume 90.7 fl (80-100); Platelet Count Result 154 k/mm3 (150-375); Red Blood Count 5.08 M/mm3 (4.6-6.20); White Blood Count 6.9 K/mm3 (4.5-10.0)
[2025-03-13 07:09] LABS: Anion Gap 9 mmol/L (4-12); Blood Urea Nitrogen 47 mg/dL (9-20); Calcium 9.0 mg/dL (8.4-10.2); Carbon Dioxide 33 mmol/L (22-30); Chloride 91 mmol/L (98-107); Estimated CRCL calculation 55 ml/min; Estimated Glomerular Filt Rate 36; Glucose 111 mg/dL (65-110); Magnesium 2.6 mg/dL (1.6-2.3); NT Pro B Type Natriuretic Pept 175 pg/mL (19.9-100); Potassium 3.7 mmol/L (3.4-5.0); Sodium 133 mmol/L (137-145)
[2025-03-13] MEDS: METOPROLOL SUCCINATE EXT REL 50 MG TABCR PO (08:56)
[2025-03-13] MEDS: ASPIRIN 81 MG CHEWABLE TABLET PO (08:56)
[2025-03-13] MEDS: APIXABAN 5 MG TABLET PO ×2 (08:56→20:51)
[2025-03-13] MEDS: FAMOTIDINE 20 MG TABLET 40 MG PO (08:56)
--- NOTE | 2025-03-13 11:09 | PM.PNCARD ---
Progress Note: A&P Assessment and Plan (1) Atrial fibrillation: Code(s): I48.91 - Unspecified atrial fibrillation Status: Acute (2) CHF (congestive heart failure): Qualifiers: Heart failure chronicity: unspecified Heart failure type: unspecified Qualified Code(s): I50.9 - Heart failure, unspecified Code(s): I50.9 - Heart failure, unspecified Status: Acute Plan 54-year-old man with mild LV systolic dysfunction also with paroxysmal atrial fibrillation. He has done well with metoprolol and anticoagulation. His diuresis has been put on hold because of acute kidney injury. Obviously he will have to tolerate a good deal of edema as we have demonstrated we cannot resolve this edema with diuretics without significant renal insult. Sodium restriction and possibly support hose would also be helpful Jay Lam MD [facility] Subjective Date/time seen: Date of service: 03/13/25 11:09 Interval history: Follow-up visit in this 54-year-old man with: Volume overload, mild systolic dysfunction, morbid obesity. Paroxysmal atrial fibrillation. He feels well today and has no complaints. Telemetry shows that he continues to maintain sinus rhythm. Lab dated today continues to demonstrate acute kidney injury with no significant improvement from yesterday. Diuretics are on hold according to my note from yesterday Exam Const: Other: Pleasant morbidly obese man sitting in the chair watching television appears to be in good spirits in no distress HENMT: Mouth: Yes moist mucous membranes Eyes: Sclera: sclerae normal Neck: Neck: supple Other: Cannot assess JVP given his body habitus Resp: Effort & Inspection: normal respiratory effort Auscultation: clear to auscultation bilaterally Cardio: Rate: regular rate Rhythm: regular rhythm Other: PMI is not palpable GI: GI Palp: Yes Soft to palpation Auscultation: normal bowel sounds Skin: General skin exam: normal color Neuro: Other: Alert and oriented x3 Extrem: Other: Moderate chronic edema persists. Objective Data Vital Signs Vital Signs: Vital Signs - 24 hr 03/12/25 12:30 03/12/25 13:39 03/12/25 13:45 Temperature Pulse Rate 74 69 72 Respiratory Rate 20 16 Blood Pressure Pulse Oximetry Oxygen Delivery Fraction of Inspired Oxygen 03/12/25 14:00 03/12/25 16:05 03/12/25 20:00 Temperature 36.4 C L Pulse Rate 72 80 80 Respiratory Rate 14 14 Blood Pressure 100/61 Pulse Oximetry 95 95 Oxygen Delivery Room Air Fraction of Inspired Oxygen 21 03/12/25 20:00 03/12/25 21:06 03/12/25 21:07 Temperature Pulse Rate 73 72 72 Respiratory Rate 20 20 Blood Pressure Pulse Oximetry 91 Oxygen Delivery Room Air Fraction of Inspired Oxygen 21 03/12/25 21:11 03/12/25 21:24 03/13/25 00:00 Temperature 36.6 C Pulse Rate 70 74 69 Respiratory Rate 25 H 20 Blood Pressure 101/55 L Pulse Oximetry 95 91 Oxygen Delivery Autopap Fraction of Inspired Oxygen 03/13/25 01:48 03/13/25 02:00 03/13/25 02:03 Temperature Pulse Rate 62 63 63 Respiratory Rate 20 20 24 H Blood Pressure Pulse Oximetry 95 Oxygen Delivery Autopap Fraction of Inspired Oxygen 03/13/25 04:00 03/13/25 06:00 03/13/25 08:56 Temperature 36.3 C L Pulse Rate 67 66 75 Respiratory Rate 20 Blood Pressure 139/63 Pulse Oximetry 93 Oxygen Delivery Fraction of Inspired Oxygen 03/13/25 09:00 03/13/25 09:33 Temperature Pulse Rate 68 Respiratory Rate 20 Blood Pressure Pulse Oximetry Oxygen Delivery Room Air Fraction of Inspired Oxygen Intake/Output Intake/Output: Intake & Output 03/10/25 03/11/25 03/12/25 03/13/25 23:59 23:59 23:59 23:59 Intake Total 1380 1330 790 540 Balance 1380 1330 790 540 Meds/Results Medications: Active Medications Generic Name Dose Route Start Last Admin Trade Name Freq PRN Reason Stop Dose Admin Al Hydrox/Mg Hydrox/Simethicone 30 ml 03/05/25 20:52 Mag Hydrox/Al Hydrox/Simeth 30 Ml Udc PO Q6H PRN Indigestion Albuterol/Ipratropium 3 ml 03/06/25 09:25 03/13/25 09:33 Ipratropium 0.5 Mg/Albuterol Sulfate 2.5 Mg Ampul.Neb 3 Ml INHALATION 3 ml Q6HRT HEATHER Administration Apixaban 5 mg 03/08/25 21:00 03/13/25 08:56 Apixaban 5 Mg Tablet PO 5 mg Q12HR HEATHER Administration Aspirin 81 mg 03/06/25 08:00 03/13/25 08:56 Aspirin 81 Mg Chewable Tablet PO 81 mg DAILY@0800 [facility] Administration Cyclobenzaprine HCl 5 mg 03/07/25 23:02 03/10/25 21:15 Cyclobenzaprine Hcl 5 Mg Tablet PO 5 mg Q8H PRN Administration Muscle Spasm Docusate Sodium 100 mg 03/05/25 20:52 Docusate Sodium 100 Mg Capsule PO Q12H PRN Constipation Famotidine 40 mg 03/06/25 09:00 03/13/25 08:56 Famotidine 20 Mg Tablet PO 40 mg DAILY [facility] Administration Losartan Potassium 100 mg 03/06/25 09:00 03/12/25 08:19 Losartan Potassium 100 Mg Tablet PO 100 mg On Hold: 03/12/25 13:42 DAILY [facility] Administration Metoprolol Succinate 50 mg 03/10/25 09:00 03/13/25 08:56 Metoprolol Succinate Ext Rel 50 Mg Tabcr PO 50 mg QAM [facility]ATHER Administration Nitroglycerin 0.4 mg 03/05/25 20:48 Nitroglycerin Sl 0.4 Mg Tablet SUBLINGUAL Q5MIN PRN Chest Pain Ondansetron HCl 4 mg 03/05/25 20:52 Ondansetron Inj 4 Mg/2 Ml Vial IV PUSH Q6H PRN Nausea And Vomiting Radiology Results: ITS Impressions Abdomen Ultrasound 03/06/25 15:38 IMPRESSION: 1. Limited study as above. 2. The visualized liver is heterogeneous likely due to fatty infiltration or hepatocellular disease. Consider a liver mass CT or MRI for further assessment. Abdomen MRI 03/11/25 08:07 IMPRESSION: 1. Diffuse hepatic steatosis with no hepatic masses or other focal hepatic lesions identified. Labs Labs: Laboratory Results - last 24 hr 03/13/25 05:42 WBC 6.9 RBC 5.08 Hgb 14.5 Hct 46.1 MCV 90.7 MCH 28.5 MCHC 31.5 L RDW 14.6 H Plt Count 154 MPV 10.4 Sodium 133 L Potassium 3.7 Chloride 91 L Carbon Dioxide 33 H Anion Gap 9 BUN 47 H Creatinine 1.93 H Estim Creat Clear Calc 55 Estimated GFR 36 L Glucose 111 H Calcium 9.0 Magnesium 2.6 H NT-Pro-B Natriuret Pep 175 H
--- NOTE | 2025-03-13 13:04 | P.PNIM_ITS ---
Progress Note: A&P Assessment and Plan (1) CHF (congestive heart failure): Qualifiers: Heart failure chronicity: unspecified Heart failure type: unspecified Qualified Code(s): I50.9 - Heart failure, unspecified Code(s): I50.9 - Heart failure, unspecified Status: Acute Assessment and Plan: Presented with chest tightness, shortness of breath 2D echo shows EF 45% without wall motion abnormality Continue aspirin, Hold losartan 100 mg daily Continue metoprolol succinate 50 mg q.day Hold Lasix Daily standing weight, strict I&Os, na <2g daily keep mag>2 and K>4 Fluid restriction to 1500 cc daily (2) Elevated troponin: Code(s): R79.89 - Other specified abnormal findings of blood chemistry Status: Acute Assessment and Plan: Likely secondary to AFib RVR-demand mismatch No chest pain, on sinus rythm (3) Acute hypoxic respiratory failure: Code(s): J96.01 - Acute respiratory failure with hypoxia Status: Acute Assessment and Plan: On room air Not on Acute respiratory distress (4) Obstructive sleep apnea: Code(s): G47.33 - Obstructive sleep apnea (adult) (pediatric) Status: Acute Assessment and Plan: He has CPAP at home, encourage routine use Continue CPAP. (5) Essential hypertension: Code(s): I10 - Essential (primary) hypertension Status: Acute Assessment and Plan: BP goal<130/80 Hold losartan due to donald (6) DONALD (acute kidney injury): Code(s): N17.9 - Acute kidney failure, unspecified Status: Acute Assessment and Plan: Likely secondary to over-diuresis Will discuss with the counter maker to cut down with the diuresis Currently Lasix and losartan on hold Subjective Date/time seen: 03/13/25 13:04 Interval history: Patient creatinine worsens. Will do gentle hydration tomorrow if creatinine continues to worsen. Patient losartan on hold from yesterday. Patient diureti cs was also on hold due to the possibility of over diuresis. Review of Systems Review of Systems: 12 systems were reviewed with pertinent positives and negatives per HPI. Except as documented in the HPI, all other systems were reviewed and are negative. Exam Narrative: APPEARANCE: No acute distress, morbidly obese, oral crowding EYES: EOMI HEENT: Normocephalic, atraumatic, OMM RESPIRATORY: Wheezing on auscultation bilaterally. CARDIOVASCULAR: RRR, S1 and S2 without murmurs rubs or gallops. ABDOMINAL: Protuberant, Soft, nontender, nondistended, no rebound or guarding MSK: Moves his extremity spontaneously. sit in the chair on exam. He has significant swelling in the leg bilaterally. NEURO: Awake and alert. Following commands, speech normal, no focal deficits SKIN:: Warm, dry. No rashes lesions or abrasions PSYCHIATRIC: Normal affect/mood, Const: Other: Obese, developmental delay Neck: Other: Short and thick neck Chest: Chest palpation & inspection: normal inspection of the chest and tenderness Resp: Auscultation: wheezes scattered wheezes Cardio: Jugular venous distension: no JVD Rate: regular rate Rhythm: regular rhythm GI: Auscultation: normal bowel sounds Extrem: Other: Bilateral lower extremity edema, reduce compared to yesterday, pitting 2+ Objective Data Vital Signs Vital Signs: Vital Signs - 24 hr 03/12/25 13:39 03/12/25 13:45 03/12/25 14:00 Temperature 97.5 F L Pulse Rate 69 72 72 Respiratory Rate 20 16 14 Blood Pressure 100/61 Pulse Oximetry 95 Oxygen Delivery Fraction of Inspired Oxygen 03/12/25 16:05 03/12/25 20:00 03/12/25 20:00 Temperature Pulse Rate 80 80 73 Respiratory Rate 14 Blood Pressure Pulse Oximetry 95 Oxygen Delivery Room Air Fraction of Inspired Oxygen 03/12/25 21:06 03/12/25 21:07 03/12/25 21:11 Temperature Pulse Rate 72 72 70 Respiratory Rate 20 20 25 H Blood Pressure Pulse Oximetry 91 95 Oxygen Delivery Room Air Autopap Fraction of Inspired Oxygen 21 03/12/25 21:24 03/13/25 00:00 03/13/25 01:48 Temperature 97.8 F Pulse Rate 74 69 62 Respiratory Rate 20 20 Blood Pressure 101/55 L Pulse Oximetry 91 Oxygen Delivery Fraction of Inspired Oxygen 03/13/25 02:00 03/13/25 02:03 03/13/25 04:00 Temperature Pulse Rate 63 63 67 Respiratory Rate 20 24 H Blood Pressure Pulse Oximetry 95 Oxygen Delivery Autopap Fraction of Inspired Oxygen 03/13/25 06:00 03/13/25 08:56 03/13/25 09:00 Temperature 97.4 F L Pulse Rate 66 75 Respiratory Rate 20 Blood Pressure 139/63 Pulse Oximetry 93 Oxygen Delivery Room Air Fraction of Inspired Oxygen 03/13/25 09:33 Temperature Pulse Rate 68 Respiratory Rate 20 Blood Pressure Pulse Oximetry Oxygen Delivery Fraction of Inspired Oxygen Intake/Output Intake/Output: Intake & Output 03/10/25 03/11/25 03/12/25 03/13/25 23:59 23:59 23:59 23:59 Intake Total 1380 1330 790 540 Balance 1380 1330 790 540 Meds/Results Medications: Active Medications Generic Name Dose Route Start Last Admin Trade Name Freq PRN Reason Stop Dose Admin Al Hydrox/Mg Hydrox/Simethicone 30 ml 03/05/25 20:52 Mag Hydrox/Al Hydrox/Simeth 30 Ml Udc PO Q6H PRN Indigestion Albuterol/Ipratropium 3 ml 03/06/25 09:25 03/13/25 09:33 Ipratropium 0.5 Mg/Albuterol Sulfate 2.5 Mg Ampul.Neb 3 Ml INHALATION 3 ml Q6HRT HEATHER Administration Apixaban 5 mg 03/08/25 21:00 03/13/25 08:56 Apixaban 5 Mg Tablet PO 5 mg Q12HR HEATHER Administration Aspirin 81 mg 03/06/25 08:00 03/13/25 08:56 Aspirin 81 Mg Chewable Tablet PO 81 mg DAILY@0800 HEATHER Administration Cyclobenzaprine HCl 5 mg 03/07/25 23:02 03/10/25 21:15 Cyclobenzaprine Hcl 5 Mg Tablet PO 5 mg Q8H PRN Administration Muscle Spasm Docusate Sodium 100 mg 03/05/25 20:52 Docusate Sodium 100 Mg Capsule PO Q12H PRN Constipation Famotidine 40 mg 03/06/25 09:00 03/13/25 08:56 Famotidine 20 Mg Tablet PO 40 mg DAILY HEATHER Administration Losartan Potassium 100 mg 03/06/25 09:00 03/12/25 08:19 Losartan Potassium 100 Mg Tablet PO 100 mg On Hold: 03/12/25 13:42 DAILY HEATHER Administration Metoprolol Succinate 50 mg 03/10/25 09:00 03/13/25 08:56 Metoprolol Succinate Ext Rel 50 Mg Tabcr PO 50 mg QAM HEATHER Administration Nitroglycerin 0.4 mg 03/05/25 20:48 Nitroglycerin Sl 0.4 Mg Tablet SUBLINGUAL Q5MIN PRN Chest Pain Ondansetron HCl 4 mg 03/05/25 20:52 Ondansetron Inj 4 Mg/2 Ml Vial IV PUSH Q6H PRN Nausea And Vomiting Radiology Results: ITS Impressions Abdomen Ultrasound 03/06/25 15:38 IMPRESSION: 1. Limited study as above. 2. The visualized liver is heterogeneous likely due to fatty infiltration or hepatocellular disease. Consider a liver mass CT or MRI for further assessment. Abdomen MRI 03/11/25 08:07 IMPRESSION: 1. Diffuse hepatic steatosis with no hepatic masses or other focal hepatic lesions identified. Labs Labs: Laboratory Results - last 24 hr 03/13/25 05:42 WBC 6.9 RBC 5.08 Hgb 14.5 Hct 46.1 MCV 90.7 MCH 28.5 MCHC 31.5 L RDW 14.6 H Plt Count 154 MPV 10.4 Sodium 133 L Potassium 3.7 Chloride 91 L Carbon Dioxide 33 H Anion Gap 9 BUN 47 H Creatinine 1.93 H Estim Creat Clear Calc 55 Estimated GFR 36 L Glucose 111 H Calcium 9.0 Magnesium 2.6 H NT-Pro-B Natriuret Pep 175 H Quality VTE Prophylaxis VTE prophylaxis: pharmacologic ordered (Eliquis 5 mg b.i.d.) Hospitalist [facility] Advance Care Plan I have confirmed that the patient's Advanced Care Plan is present, code status is documented, or surrogate decision maker is listed in patient medical record.: Yes Medication Reconciliation I have utilized all available resources to obtain, update and review the patients current medications (includes all prescriptions, OTC, herbals, cannabis, and nutritional supplements).: Yes
[2025-03-14] VITALS (14 sets, daily range): BP systolic 121–148; BP diastolic 62–75; PULSE 69–77; RESP 16–26; TEMP 36.1–36.5; O2SAT 93–96
[2025-03-14] MEDS: IPRATROPIUM 0.5 MG/ALBUTEROL SULFATE 2.5 MG AMPUL.NEB 3 ML INHALATION ×4 (02:58→20:00)
[2025-03-14 05:56] LABS: Hematocrit 46.0 % (42.0-52.0); Hemoglobin 14.8 g/dL (14.0-18.0); Mean Corpuscular HGB Conc 32.2 g/dl (32-36); Mean Corpuscular Hemoglobin 28.6 pg (26-34); Mean Corpuscular Volume 89.0 fl (80-100); Platelet Count Result 159 k/mm3 (150-375); Red Blood Count 5.17 M/mm3 (4.6-6.20); White Blood Count 7.2 K/mm3 (4.5-10.0)
[2025-03-14 06:30] LABS: Alanine Aminotransferase 51 U/L (6-50); Albumin Level 4.0 g/dL (3.5-5.1); Alkaline Phosphatase 80 U/L (38-126); Anion Gap 7 mmol/L (4-12); Aspartate Amino Transferase 33 U/L (17-59); Bilirubin,Total 0.7 mg/dL (0.2-1.3); Blood Urea Nitrogen 39 mg/dL (9-20); Calcium 9.3 mg/dL (8.4-10.2); Carbon Dioxide 34 mmol/L (22-30); Chloride 93 mmol/L (98-107); Estimated CRCL calculation 62 ml/min; Estimated Glomerular Filt Rate 41; Glucose 124 mg/dL (65-110); Magnesium 2.5 mg/dL (1.6-2.3); Potassium 4.0 mmol/L (3.4-5.0); Sodium 134 mmol/L (137-145); Total Protein 7.6 g/dL (6.3-8.2)
[2025-03-14] MEDS: FAMOTIDINE 20 MG TABLET 40 MG PO (08:09)
[2025-03-14] MEDS: METOPROLOL SUCCINATE EXT REL 50 MG TABCR PO (08:09)
[2025-03-14] MEDS: ASPIRIN 81 MG CHEWABLE TABLET PO (08:10)
[2025-03-14] MEDS: APIXABAN 5 MG TABLET PO ×2 (08:10→20:49)
--- NOTE | 2025-03-14 16:26 | P.PNIM_ITS ---
Progress Note: A&P Assessment and Plan (1) CHF (congestive heart failure): Qualifiers: Heart failure chronicity: unspecified Heart failure type: unspecified Qualified Code(s): I50.9 - Heart failure, unspecified Code(s): I50.9 - Heart failure, unspecified Status: Acute Assessment and Plan: Presented with chest tightness, shortness of breath 2D echo shows EF 45% without wall motion abnormality Continue aspirin, Hold losartan 100 mg daily Continue metoprolol succinate 50 mg q.day Hold Lasix Daily standing weight, strict I&Os, na <2g daily keep mag>2 and K>4 Fluid restriction to 1500 cc daily (2) Elevated troponin: Code(s): R79.89 - Other specified abnormal findings of blood chemistry Status: Acute Assessment and Plan: Likely secondary to AFib RVR-demand mismatch No chest pain, on sinus rythm (3) Acute hypoxic respiratory failure: Code(s): J96.01 - Acute respiratory failure with hypoxia Status: Acute Assessment and Plan: On room air Not on Acute respiratory distress (4) Obstructive sleep apnea: Code(s): G47.33 - Obstructive sleep apnea (adult) (pediatric) Status: Acute Assessment and Plan: He has CPAP at home, encourage routine use Continue CPAP. 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 Ordered syphilis, HIV and chlamydia and gonorrhea. Patient creatinine is improving. Continue holding losartan and L asix Review of Systems Review of Systems: 12 systems were reviewed with pertinent positives and negatives per HPI. Except as documented in the HPI, all other systems were reviewed and are negative. Exam Narrative: APPEARANCE: No acute distress, morbidly obese, oral crowding EYES: EOMI HEENT: Normocephalic, atraumatic, OMM RESPIRATORY: Wheezing on auscultation bilaterally. CARDIOVASCULAR: RRR, S1 and S2 without murmurs rubs or gallops. ABDOMINAL: Protuberant, Soft, nontender, nondistended, no rebound or guarding MSK: Moves his extremity spontaneously. sit in the chair on exam. He has significant swelling in the leg bilaterally. NEURO: Awake and alert. Following commands, speech normal, no focal deficits SKIN:: Warm, dry. No rashes lesions or abrasions PSYCHIATRIC: Normal affect/mood, Const: Other: Obese, developmental delay Neck: Other: Short and thick neck Chest: Chest palpation & inspection: normal inspection of the chest and tenderness Resp: Auscultation: wheezes scattered wheezes Cardio: Jugular venous distension: no JVD Rate: regular rate Rhythm: regular rhythm GI: Auscultation: normal bowel sounds Extrem: Other: Bilateral lower extremity edema, reduce compared to yesterday, pitting 2+ Objective Data Vital Signs Vital Signs: Vital Signs - 24 hr 03/13/25 20:00 03/13/25 21:21 03/13/25 21:24 Temperature 98 F Pulse Rate 78 Respiratory Rate 18 Blood Pressure 148/72 H Pulse Oximetry 95 95 Oxygen Delivery Room Air Room Air 03/13/25 21:25 03/13/25 21:30 03/13/25 22:50 Temperature Pulse Rate 71 73 70 Respiratory Rate 20 20 18 Blood Pressure Pulse Oximetry 95 Oxygen Delivery Autopap 03/14/25 03:00 03/14/25 03:00 03/14/25 03:07 Temperature Pulse Rate 69 69 71 Respiratory Rate 24 H 24 H 24 H Blood Pressure Pulse Oximetry 96 Oxygen Delivery Autopap 03/14/25 04:21 03/14/25 08:09 03/14/25 08:10 Temperature 97.7 F Pulse Rate 70 70 Respiratory Rate 18 Blood Pressure 121/68 Pulse Oximetry 96 Oxygen Delivery Room Air 03/14/25 09:15 03/14/25 09:20 03/14/25 09:25 Temperature Pulse Rate 70 75 Respiratory Rate 18 18 Blood Pressure Pulse Oximetry 95 Oxygen Delivery 03/14/25 13:43 03/14/25 14:00 Temperature 97.6 F Pulse Rate 75 77 Respiratory Rate 17 18 Blood Pressure 148/62 H Pulse Oximetry 93 Oxygen Delivery Intake/Output Intake/Output: Intake & Output 03/11/25 03/12/25 03/13/25 03/14/25 23:59 23:59 23:59 23:59 Intake Total 8989 391 4461 480 Balance 8882 443 1989 480 Meds/Results Medications: Active Medications Generic Name Dose Route Start Last Admin Trade Name Freq PRN Reason Stop Dose Admin Al Hydrox/Mg Hydrox/Simethicone 30 ml 03/05/25 20:52 Mag Hydrox/Al Hydrox/Simeth 30 Ml Udc PO Q6H PRN Indigestion Albuterol/Ipratropium 3 ml 03/06/25 09:25 03/14/25 13:43 Ipratropium 0.5 Mg/Albuterol Sulfate 2.5 Mg Ampul.Neb 3 Ml INHALATION 3 ml Q6HRT HEATHER Administration Apixaban 5 mg 03/08/25 21:00 03/14/25 08:10 Apixaban 5 Mg Tablet PO 5 mg Q12HR HEATHER Administration Aspirin 81 mg 03/06/25 08:00 03/14/25 08:10 Aspirin 81 Mg Chewable Tablet PO 81 mg DAILY@0800 HEATHER Administration Cyclobenzaprine HCl 5 mg 03/07/25 23:02 03/10/25 21:15 Cyclobenzaprine Hcl 5 Mg Tablet PO 5 mg Q8H PRN Administration Muscle Spasm Docusate Sodium 100 mg 03/05/25 20:52 Docusate Sodium 100 Mg Capsule PO Q12H PRN Constipation Famotidine 40 mg 03/06/25 09:00 03/14/25 08:09 Famotidine 20 Mg Tablet PO 40 mg DAILY HEATHER Administration Losartan Potassium 100 mg 03/06/25 09:00 03/12/25 08:19 Losartan Potassium 100 Mg Tablet PO 100 mg On Hold: 03/12/25 13:42 DAILY HEATHER Administration Metoprolol Succinate 50 mg 03/10/25 09:00 03/14/25 08:09 Metoprolol Succinate Ext Rel 50 Mg Tabcr PO 50 mg QAM HEATHER Administration Nitroglycerin 0.4 mg 03/05/25 20:48 Nitroglycerin Sl 0.4 Mg Tablet SUBLINGUAL Q5MIN PRN Chest Pain Ondansetron HCl 4 mg 03/05/25 20:52 Ondansetron Inj 4 Mg/2 Ml Vial IV PUSH Q6H PRN Nausea And Vomiting Radiology Results: ITS Impressions Abdomen Ultrasound 03/06/25 15:38 IMPRESSION: 1. Limited study as above. 2. The visualized liver is heterogeneous likely due to fatty infiltration or hepatocellular disease. Consider a liver mass CT or MRI for further assessment. Abdomen MRI 03/11/25 08:07 IMPRESSION: 1. Diffuse hepatic steatosis with no hepatic masses or other focal hepatic lesions identified. Labs Labs: Laboratory Results - last 24 hr 03/14/25 05:47 WBC 7.2 RBC 5.17 Hgb 14.8 Hct 46.0 MCV 89.0 MCH 28.6 MCHC 32.2 RDW 14.4 Plt Count 159 MPV 10.0 Sodium 134 L Potassium 4.0 Chloride 93 L Carbon Dioxide 34 H Anion Gap 7 BUN 39 H Creatinine 1.73 H Estim Creat Clear Calc 62 Estimated GFR 41 L Glucose 124 H Calcium 9.3 Magnesium 2.5 H Total Bilirubin 0.7 AST 33 ALT 51 H Alkaline Phosphatase 80 Total Protein 7.6 Albumin 4.0 Quality VTE Prophylaxis VTE prophylaxis: pharmacologic ordered (Eliquis 5 mg b.i.d.) Hospitalist [facility] Advance Care Plan I have confirmed that the patient's Advanced Care Plan is present, code status is documented, or surrogate decision maker is listed in patient medical record.: Yes Medication Reconciliation I have utilized all available resources to obtain, update and review the patients current medications (includes all prescriptions, OTC, herbals, cannab is, and nutritional supplements).: Yes
[2025-03-14 17:01] LABS: HIV 1/2 Ab P24 Ag Result Negative (Negative)
[2025-03-14 18:19] LABS: Syphilis IgG/IgM Antibody Non-Reactive (Nonreactive)
[2025-03-15] VITALS (15 sets, daily range): BP systolic 129–153; BP diastolic 64–94; PULSE 64–84; RESP 16–25; TEMP 36.4–36.9; O2SAT 91–100
[2025-03-15] MEDS: IPRATROPIUM 0.5 MG/ALBUTEROL SULFATE 2.5 MG AMPUL.NEB 3 ML INHALATION ×4 (01:59→20:40)
[2025-03-15 05:50] LABS: Hematocrit 46.7 % (42.0-52.0); Hemoglobin 14.8 g/dL (14.0-18.0); Mean Corpuscular HGB Conc 31.7 g/dl (32-36); Mean Corpuscular Hemoglobin 28.2 pg (26-34); Mean Corpuscular Volume 89.1 fl (80-100); Platelet Count Result 147 k/mm3 (150-375); Red Blood Count 5.24 M/mm3 (4.6-6.20); White Blood Count 6.8 K/mm3 (4.5-10.0)
[2025-03-15 06:10] LABS: Alanine Aminotransferase 47 U/L (6-50); Albumin Level 4.0 g/dL (3.5-5.1); Alkaline Phosphatase 77 U/L (38-126); Anion Gap 6 mmol/L (4-12); Aspartate Amino Transferase 32 U/L (17-59); Bilirubin,Total 0.6 mg/dL (0.2-1.3); Blood Urea Nitrogen 36 mg/dL (9-20); Calcium 9.2 mg/dL (8.4-10.2); Carbon Dioxide 33 mmol/L (22-30); Chloride 94 mmol/L (98-107); Estimated CRCL calculation 70 ml/min; Estimated Glomerular Filt Rate 47; Glucose 118 mg/dL (65-110); Magnesium 2.4 mg/dL (1.6-2.3); Potassium 4.1 mmol/L (3.4-5.0); Sodium 133 mmol/L (137-145); Total Protein 7.3 g/dL (6.3-8.2)
--- NOTE | 2025-03-15 08:54 | PN_ITS ---
This document was recreated on 04/19/2025. The original document was signed by Sally Park APRN on 03/15/2025 0854. Progress Note: A&P Assessment and Plan (1) Atrial fibrillation: Code(s): I48.91 - Unspecified atrial fibrillation Status: Acute Assessment and Plan: paroxysmal in nature. Appears to be in NSR on exam today. No longer on tele monitoring Will continue on Toprol XL for rate control Remains on eliquis for AC would recommend OP sleep study for CPAP at home as management of ALETHA will be important in managing his ability to remain a NSR (2) CHF (congestive heart failure): Qualifiers: Heart failure chronicity: unspecified Heart failure type: unspecified Qualified Code(s): I50.9 - Heart failure, unspecified Code(s): I50.9 - Heart failure, unspecified Status: Acute Assessment and Plan: HFmref EF of 45% per last echo Plan Sitting up in chair and appears better compensated. No reports of any SOB. Edema improved Off diuretic therapy d/t renal dysfunction his CR is improved today at 1.53. Will continue BB and ARB Will add Jardiance in setting of CHF Can consider OP ischemic eval with nuclear stress testing Will sign off at this time please call with any question or concerns. Subjective Date/time seen: 03/15/25 08:54 Interval history: Patient seen for cardiology follow up today. He is sitting up in chair eating breakfast and overall feels well. He denies any chest pain or SOB. No dizziness or palpitations. Review of Systems Review of Systems: 12 systems were reviewed with pertinent positives and negatives per HPI. Except as documented in the HPI, all other systems were reviewed and are negative. Exam Const: General: comfortable, no acute distress, alert and awake Orientation/consciousness: patient oriented x3 HENMT: Head: normal to inspection Mouth: Yes moist mucous membranes Neck: Neck: normal visual inspection and supple Resp: Effort & Inspection: normal respiratory effort Auscultation: clear to auscultation bilaterally Cardio: Rate: regular rate Rhythm: regular rhythm Heart sounds: S1 normal heart sound present, S2 normal heart sound present and no murmurs Other: PMI is not palpable Skin: General skin exam: normal color Neuro: General: patient oriented x3 Extrem: General: edema (pedal edema) Other: compression stocking in place Psych: Appearance: grossly normal Objective Data Vital Signs Vital Signs: Vital Signs - 24 hr 03/14/2509:15 03/14/2509:20 03/14/2509:25 Temperature Pulse Rate 70 75 Respiratory Rate 18 18 Blood Pressure Pulse Oximetry 95 Oxygen Delivery Fraction of Inspired Oxygen 03/14/2513:43 03/14/2514:00 03/14/2520:00 Temperature 36.4 C Pulse Rate 75 77 75 Respiratory Rate 17 18 16 Blood Pressure 148/62 H Pulse Oximetry 93 Oxygen Delivery Fraction of Inspired Oxygen 03/14/2520:00 03/14/2520:03 03/14/2520:06 Temperature Pulse Rate 75 Respiratory Rate 18 Blood Pressure Pulse Oximetry 93 Oxygen Delivery Room Air Room Air Fraction of Inspired Oxygen 21 03/14/2521:35 03/14/2523:48 03/15/2501:59 Temperature 36.1 C L Pulse Rate 75 70 73 Respiratory Rate 20 26 H 19 Blood Pressure 141/75 H Pulse Oximetry 95 93 Oxygen Delivery Autopap Fraction of Inspired Oxygen 03/15/2502:06 03/15/2502:06 03/15/2506:00 Temperature 36.4 C L Pulse Rate 73 73 67 Respiratory Rate 19 21 H 16 Blood Pressure 147/71 H Pulse Oximetry 94 93 Oxygen Delivery Autopap Fraction of Inspired Oxygen 03/15/2507:34 03/15/2507:34 03/15/2507:44 Temperature Pulse Rate 79 67 Respiratory Rate 20 20 Blood Pressure Pulse Oximetry 91 Oxygen Delivery Room Air Fraction of Inspired Oxygen 21 Intake/Output Intake/Output: Intake & Output 03/12/25 03/13/25 03/14/25 03/15/25 23:59 23:59 23:59 23:59 Intake Total 790 1710 1110 200 Balance 790 1710 1110 200 Meds/Results Medications: Active Medications Generic Name Dose Route Start Last Admin Trade Name Freq PRN Reason Stop Dose Admin Al Hydrox/Mg Hydrox/Simethicone 30 ml 03/05/25 20:52 Mag Hydrox/Al Hydrox/Simeth 30 Ml Udc PO Q6H PRN Indigestion Albuterol/Ipratropium 3 ml 03/06/25 09:25 03/15/25 07:34 Ipratropium 0.5 Mg/Albuterol Sulfate 2.5 Mg Ampul.Neb 3 Ml INHALATION 3 ml Q6HRT HEATHER Administration Apixaban 5 mg 03/08/25 21:00 03/14/25 20:49 Apixaban 5 Mg Tablet PO 5 mg Q12HR HEATHER Administration Aspirin 81 mg 03/06/25 08:00 03/14/25 08:10 Aspirin 81 Mg Chewable Tablet PO 81 mg DAILY@0800 HEATHER Administration Cyclobenzaprine HCl 5 mg 03/07/25 23:02 03/10/25 21:15 Cyclobenzaprine Hcl 5 Mg Tablet PO 5 mg Q8H PRN Administration Muscle Spasm Docusate Sodium 100 mg 03/05/25 20:52 Docusate Sodium 100 Mg Capsule PO Q12H PRN Constipation Empagliflozin 10 mg 03/15/25 09:00 Empagliflozin 10 Mg Tablet PO DAILY HEATHER Famotidine 40 mg 03/06/25 09:00 03/14/25 08:09 Famotidine 20 Mg Tablet PO 40 mg DAILY HEATHER Administration Losartan Potassium 100 mg 03/06/25 09:00 03/12/25 08:19 Losartan Potassium 100 Mg Tablet PO 100 mg On Hold: 03/12/25 13:42 DAILY [facility] Administration Metoprolol Succinate 50 mg 03/10/25 09:00 03/14/25 08:09 Metoprolol Succinate Ext Rel 50 Mg Tabcr PO 50 mg QAM HEATHER Administration Nitroglycerin 0.4 mg 03/05/25 20:48 Nitroglycerin Sl 0.4 Mg Tablet SUBLINGUAL Q5MIN PRN Chest Pain Ondansetron HCl 4 mg 03/05/25 20:52 Ondansetron Inj 4 Mg/2 Ml Vial IV PUSH Q6H PRN Nausea And Vomiting Radiology Results: ITS Impressions Abdomen Ultrasound 03/06/25 15:38 IMPRESSION: 1. Limited study as above. 2. The visualized liver is heterogeneous likely due to fatty infiltration or hepatocellular disease. Consider a liver mass CT or MRI for further assessment. Abdomen MRI 03/11/25 08:07 IMPRESSION: 1. Diffuse hepatic steatosis with no hepatic masses or other focal hepatic lesions identified. Labs Labs: Laboratory Results - last 24 hr 03/14/25 03/14/25 03/15/25 05:40 18:26 05:38 WBC 6.8 RBC 5.24 Hgb 14.8 Hct 46.7 MCV 89.1 MCH 28.2 MCHC 31.7 L RDW 14.1 Plt Count 147 L MPV 9.9 Sodium 133 L Potassium 4.1 Chloride 94 L Carbon Dioxide 33 H Anion Gap 6 BUN 36 H Creatinine 1.53 H Estim Creat Clear Calc 70 Estimated GFR 47 L Glucose 118 H Calcium 9.2 Magnesium 2.4 H Total Bilirubin 0.6 AST 32 ALT 47 Alkaline Phosphatase 77 Total Protein 7.3 Albumin 4.0 Syphilis IgG/IgM Ab Non-reactive C. trachomatis (PCR) Not detected HIV 1&2 Ab/P24 Ag 4thGn Negative N. gonorrhoeae (PCR) Not detected Please be advised this is a medical document. It is intended for [id number] communication. It is written in medical language and may contain unfamiliar abbreviations or verbiage. Medical documents are intended to carry relevant information, facts as evident, and the clinical opinion of the practitioner at the time of the encounter. This report may have been done utilizing a voice recognition system. Attempts have been made to correct errors. However, there may be uncorrected grammatical, spelling, and recognition errors present. The file time of this note does not necessarily represent the time the patient was seen. Report Initialized date/time: [address] 03/15/25 0910 Electronically signed by: 68Shavon Cuello 03/15/25 0910 Ricki Haas MD 03/15/25 8089
[2025-03-15] MEDS: FAMOTIDINE 20 MG TABLET 40 MG PO (09:25)
[2025-03-15] MEDS: METOPROLOL SUCCINATE EXT REL 50 MG TABCR PO (09:25)
[2025-03-15] MEDS: ASPIRIN 81 MG CHEWABLE TABLET PO (09:25)
[2025-03-15] MEDS: APIXABAN 5 MG TABLET PO ×2 (09:26→20:31)
[2025-03-15] MEDS: EMPAGLIFLOZIN 10 MG TABLET PO (09:27)
--- NOTE | 2025-03-15 16:29 | P.PNIM_ITS ---
Progress Note: A&P Assessment and Plan (1) CHF (congestive heart failure): Qualifiers: Heart failure chronicity: unspecified Heart failure type: unspecified Qualified Code(s): I50.9 - Heart failure, unspecified Code(s): I50.9 - Heart failure, unspecified Status: Acute Assessment and Plan: Presented with chest tightness, shortness of breath 2D echo shows EF 45% without wall motion abnormality Continue aspirin, Hold losartan 100 mg daily Continue metoprolol succinate 50 mg q.day Hold Lasix Daily standing weight, strict I&Os, na <2g daily keep mag>2 and K>4 Fluid restriction to 1500 cc daily (2) Elevated troponin: Code(s): R79.89 - Other specified abnormal findings of blood chemistry Status: Acute Assessment and Plan: Likely secondary to AFib RVR-demand mismatch No chest pain, on sinus rythm (3) Acute hypoxic respiratory failure: Code(s): J96.01 - Acute respiratory failure with hypoxia Status: Acute Assessment and Plan: On room air Not on Acute respiratory distress (4) Obstructive sleep apnea: Code(s): G47.33 - Obstructive sleep apnea (adult) (pediatric) Status: Acute Assessment and Plan: He has CPAP at home, encourage routine use Continue CPAP. (5) Essential hypertension: Code(s): I10 - Essential (primary) hypertension Status: Acute Assessment and Plan: BP goal<130/80 Hold losartan due to donald (6) DONALD (acute kidney injury): Code(s): N17.9 - Acute kidney failure, unspecified Status: Acute Assessment and Plan: Likely secondary to over-diuresis Will discuss with the assistant women's rowing coach to cut down with the diuresis Currently Lasix and losartan on hold Subjective Date/time seen: 03/15/25 16:29 Interval history: Patient HIV, syphilis, hepatitis-B was negative. Patient started on empagliflozin by Cardiology. Patient creatinine continues to improve. Holding Lasix and losartan Review of Systems Review of Systems: 12 systems were reviewed with pertinent positives and negatives per HPI. Except as documented in the HPI, all other systems were reviewed and are negative. Exam Narrative: APPEARANCE: No acute distress, morbidly obese, oral crowding EYES: EOMI HEENT: Normocephalic, atraumatic, OMM RESPIRATORY: Wheezing on auscultation bilaterally. CARDIOVASCULAR: RRR, S1 and S2 without murmurs rubs or gallops. ABDOMINAL: Protuberant, Soft, nontender, nondistended, no rebound or guarding MSK: Moves his extremity spontaneously. sit in the chair on exam. He has significant swelling in the leg bilaterally. NEURO: Awake and alert. Following commands, speech normal, no focal deficits SKIN:: Warm, dry. No rashes lesions or abrasions PSYCHIATRIC: Normal affect/mood, Const: Other: Obese, developmental delay Neck: Other: Short and thick neck Chest: Chest palpation & inspection: normal inspection of the chest and tenderness Resp: Auscultation: wheezes scattered wheezes Cardio: Jugular venous distension: no JVD Rate: regular rate Rhythm: regular rhythm GI: Auscultation: normal bowel sounds Extrem: Other: Bilateral lower extremity edema, reduce compared to yesterday, pitting 2+ Objective Data Vital Signs Vital Signs: Vital Signs - 24 hr 03/14/25 20:00 03/14/25 20:00 03/14/25 20:03 Temperature Pulse Rate 75 Respiratory Rate 16 Blood Pressure Pulse Oximetry 93 Oxygen Delivery Room Air Room Air Fraction of Inspired Oxygen 21 03/14/25 20:06 03/14/25 21:35 03/14/25 23:48 Temperature 97.0 F L Pulse Rate 75 75 70 Respiratory Rate 18 20 26 H Blood Pressure 141/75 H Pulse Oximetry 95 93 Oxygen Delivery Autopap Fraction of Inspired Oxygen 03/15/25 01:59 03/15/25 02:06 03/15/25 02:06 Temperature Pulse Rate 73 73 73 Respiratory Rate 19 19 21 H Blood Pressure Pulse Oximetry 94 Oxygen Delivery Autopap Fraction of Inspired Oxygen 03/15/25 06:00 03/15/25 07:34 03/15/25 07:34 Temperature 97.5 F L Pulse Rate 67 79 Respiratory Rate 16 20 Blood Pressure 147/71 H Pulse Oximetry 93 91 Oxygen Delivery Room Air Fraction of Inspired Oxygen 03/15/25 07:44 03/15/25 09:25 03/15/25 09:30 Temperature Pulse Rate 67 77 Respiratory Rate 20 Blood Pressure Pulse Oximetry 91 Oxygen Delivery Room Air Fraction of Inspired Oxygen 03/15/25 13:35 03/15/25 13:42 Temperature Pulse Rate 84 72 Respiratory Rate 20 20 Blood Pressure Pulse Oximetry Oxygen Delivery Fraction of Inspired Oxygen Intake/Output Intake/Output: Intake & Output 03/12/25 03/13/25 03/14/25 03/15/25 23:59 23:59 23:59 23:59 Intake Total 790 1710 1110 680 Balance 790 1710 1110 680 Meds/Results Medications: Active Medications Generic Name Dose Route Start Last Admin Trade Name Freq PRN Reason Stop Dose Admin Al Hydrox/Mg Hydrox/Simethicone 30 ml 03/05/25 20:52 Mag Hydrox/Al Hydrox/Simeth 30 Ml Udc PO Q6H PRN Indigestion Albuterol/Ipratropium 3 ml 03/06/25 09:25 03/15/25 13:34 Ipratropium 0.5 Mg/Albuterol Sulfate 2.5 Mg Ampul.Neb 3 Ml INHALATION 3 ml Q6HRT HEATHER Administration Apixaban 5 mg 03/08/25 21:00 03/15/25 09:26 Apixaban 5 Mg Tablet PO 5 mg Q12HR HEATHER Administration Aspirin 81 mg 03/06/25 08:00 03/15/25 09:25 Aspirin 81 Mg Chewable Tablet PO 81 mg DAILY@0800 HEATHER Administration Cyclobenzaprine HCl 5 mg 03/07/25 23:02 03/10/25 21:15 Cyclobenzaprine Hcl 5 Mg Tablet PO 5 mg Q8H PRN Administration Muscle Spasm Docusate Sodium 100 mg 03/05/25 20:52 Docusate Sodium 100 Mg Capsule PO Q12H PRN Constipation Empagliflozin 10 mg 03/15/25 09:00 03/15/25 09:27 Empagliflozin 10 Mg Tablet PO 10 mg DAILY HEATHER Administration Famotidine 40 mg 03/06/25 09:00 03/15/25 09:25 Famotidine 20 Mg Tablet PO 40 mg DAILY HEATHER Administration Losartan Potassium 100 mg 03/06/25 09:00 03/12/25 08:19 Losartan Potassium 100 Mg Tablet PO 100 mg On Hold: 03/12/25 13:42 DAILY HEATHER Administration Metoprolol Succinate 50 mg 03/10/25 09:00 03/15/25 09:25 Metoprolol Succinate Ext Rel 50 Mg Tabcr PO 50 mg QAM HEATHER Administration Nitroglycerin 0.4 mg 03/05/25 20:48 Nitroglycerin Sl 0.4 Mg Tablet SUBLINGUAL Q5MIN PRN Chest Pain Ondansetron HCl 4 mg 03/05/25 20:52 Ondansetron Inj 4 Mg/2 Ml Vial IV PUSH Q6H PRN Nausea And Vomiting Radiology Results: ITS Impressions Abdomen Ultrasound 03/06/25 15:38 IMPRESSION: 1. Limited study as above. 2. The visualized liver is heterogeneous likely due to fatty infiltration or hepatocellular disease. Consider a liver mass CT or MRI for further assessment. Abdomen MRI 03/11/25 08:07 IMPRESSION: 1. Diffuse hepatic steatosis with no hepatic masses or other focal hepatic lesions identified. Labs Labs: Laboratory Results - last 24 hr 03/14/25 03/14/25 03/15/25 05:40 18:26 05:38 WBC 6.8 RBC 5.24 Hgb 14.8 Hct 46.7 MCV 89.1 MCH 28.2 MCHC 31.7 L RDW 14.1 Plt Count 147 L MPV 9.9 Sodium 133 L Potassium 4.1 Chloride 94 L Carbon Dioxide 33 H Anion Gap 6 BUN 36 H Creatinine 1.53 H Estim Creat Clear Calc 70 Estimated GFR 47 L Glucose 118 H Calcium 9.2 Magnesium 2.4 H Total Bilirubin 0.6 AST 32 ALT 47 Alkaline Phosphatase 77 Total Protein 7.3 Albumin 4.0 Syphilis IgG/IgM Ab Non-reactive C. trachomatis (PCR) Not detected HIV 1&2 Ab/P24 Ag 4thGn Negative N. gonorrhoeae (PCR) Not detected Quality VTE Prophylaxis VTE prophylaxis: pharmacologic ordered (Eliquis 5 mg b.i.d.) Hospitalist MIPS Advance Care Plan I have confirmed that the patient's Advanced Care Plan is present, code status is documented, or surrogate decision maker is listed in patient medical record.: Yes Medication Reconciliation I have utilized all available resources to obtain, update and review the patients current medications (includes all prescriptions, OTC, herbals, cannabis, and nutritional supplements).: Yes
[2025-03-16] VITALS (14 sets, daily range): BP systolic 115–155; BP diastolic 55–77; PULSE 67–80; RESP 18–30; TEMP 36.6–37.1; O2SAT 93–98
[2025-03-16] MEDS: IPRATROPIUM 0.5 MG/ALBUTEROL SULFATE 2.5 MG AMPUL.NEB 3 ML INHALATION ×4 (02:50→20:19)
[2025-03-16 05:31] LABS: Hematocrit 45.0 % (42.0-52.0); Hemoglobin 14.4 g/dL (14.0-18.0); Mean Corpuscular HGB Conc 32.0 g/dl (32-36); Mean Corpuscular Hemoglobin 28.7 pg (26-34); Mean Corpuscular Volume 89.6 fl (80-100); Platelet Count Result 156 k/mm3 (150-375); Red Blood Count 5.02 M/mm3 (4.6-6.20); White Blood Count 6.6 K/mm3 (4.5-10.0)
[2025-03-16 06:04] LABS: Alanine Aminotransferase 41 U/L (6-50); Albumin Level 3.8 g/dL (3.5-5.1); Alkaline Phosphatase 73 U/L (38-126); Anion Gap 7 mmol/L (4-12); Aspartate Amino Transferase 29 U/L (17-59); Bilirubin,Total 0.5 mg/dL (0.2-1.3); Blood Urea Nitrogen 32 mg/dL (9-20); Calcium 9.0 mg/dL (8.4-10.2); Carbon Dioxide 31 mmol/L (22-30); Chloride 97 mmol/L (98-107); Estimated CRCL calculation 74 ml/min; Estimated Glomerular Filt Rate 51; Glucose 113 mg/dL (65-110); NT Pro B Type Natriuretic Pept 471 pg/mL (19.9-100); Potassium 4.0 mmol/L (3.4-5.0); Sodium 135 mmol/L (137-145); Total Protein 7.3 g/dL (6.3-8.2)
[2025-03-16] MEDS: EMPAGLIFLOZIN 10 MG TABLET PO (08:55)
[2025-03-16] MEDS: APIXABAN 5 MG TABLET PO ×2 (08:55→20:51)
[2025-03-16] MEDS: METOPROLOL SUCCINATE EXT REL 50 MG TABCR PO (08:55)
[2025-03-16] MEDS: FAMOTIDINE 20 MG TABLET 40 MG PO (08:56)
[2025-03-16] MEDS: ASPIRIN 81 MG CHEWABLE TABLET PO (08:56)
--- NOTE | 2025-03-16 10:13 | P.PNIM_ITS ---
Progress Note: A&P Assessment and Plan (1) CHF (congestive heart failure): Qualifiers: Heart failure chronicity: unspecified Heart failure type: unspecified Qualified Code(s): I50.9 - Heart failure, unspecified Code(s): I50.9 - Heart failure, unspecified Status: Acute Assessment and Plan: Presented with chest tightness, shortness of breath 2D echo shows EF 45% without wall motion abnormality Continue aspirin, Hold losartan 100 mg daily Continue metoprolol succinate 50 mg q.day Hold Lasix Daily standing weight, strict I&Os, na <2g daily keep mag>2 and K>4 Fluid restriction to 1500 cc daily (2) Elevated troponin: Code(s): R79.89 - Other specified abnormal findings of blood chemistry Status: Acute Assessment and Plan: Likely secondary to AFib RVR-demand mismatch No chest pain, on sinus rythm (3) Acute hypoxic respiratory failure: Code(s): J96.01 - Acute respiratory failure with hypoxia Status: Acute Assessment and Plan: On room air Not on Acute respiratory distress (4) Obstructive sleep apnea: Code(s): G47.33 - Obstructive sleep apnea (adult) (pediatric) Status: Acute Assessment and Plan: He has CPAP at home, encourage routine use Continue CPAP. (5) Essential hypertension: Code(s): I10 - Essential (primary) hypertension Status: Acute Assessment and Plan: BP goal<130/80 Hold losartan due to donald (6) DONALD (acute kidney injury): Code(s): N17.9 - Acute kidney failure, unspecified Status: Acute Assessment and Plan: Likely secondary to over-diuresis Will discuss with the ship self defense system mk1 operator to cut down with the diuresis Currently Lasix and losartan on hold Subjective Date/time seen: 03/16/25 10:13 Interval history: No acute event overnight. Patient has cough. Will start Mucinex. Creatinine improving. Review of Systems Review of Systems: 12 systems were reviewed with pertinent positives and negatives per HPI. Except as documented in the HPI, all other systems were reviewed and are negative. Exam Narrative: APPEARANCE: No acute distress, morbidly obese, oral crowding EYES: EOMI HEENT: Normocephalic, atraumatic, OMM RESPIRATORY: Wheezing on auscultation bilaterally. CARDIOVASCULAR: RRR, S1 and S2 without murmurs rubs or gallops. ABDOMINAL: Protuberant, Soft, nontender, nondistended, no rebound or guarding MSK: Moves his extremity spontaneously. sit in the chair on exam. He has significant swelling in the leg bilaterally. NEURO: Awake and alert. Following commands, speech normal, no focal deficits SKIN:: Warm, dry. No rashes lesions or abrasions PSYCHIATRIC: Normal affect/mood, Const: Other: Obese, developmental delay Neck: Other: Short and thick neck Chest: Chest palpation & inspection: normal inspection of the chest and tenderness Resp: Auscultation: wheezes scattered wheezes Cardio: Jugular venous distension: no JVD Rate: regular rate Rhythm: regular rhythm GI: Auscultation: normal bowel sounds Extrem: Other: Bilateral lower extremity edema, reduce compared to yesterday, pitting 2+ Objective Data Vital Signs Vital Signs: Vital Signs - 24 hr 03/15/25 13:35 03/15/25 13:42 03/15/25 14:00 Temperature 98.4 F Pulse Rate 84 72 64 Respiratory Rate 20 20 20 Blood Pressure 129/64 Pulse Oximetry 100 Oxygen Delivery Fraction of Inspired Oxygen 03/15/25 20:00 03/15/25 20:28 03/15/25 20:40 Temperature 98.5 F Pulse Rate 73 72 Respiratory Rate 20 20 Blood Pressure 153/94 H Pulse Oximetry 94 Oxygen Delivery Room Air Fraction of Inspired Oxygen 03/15/25 20:47 03/15/25 21:00 03/15/25 22:50 Temperature Pulse Rate 74 78 Respiratory Rate 20 25 H Blood Pressure Pulse Oximetry 94 93 Oxygen Delivery Room Air Autopap Fraction of Inspired Oxygen 21 03/16/25 02:50 03/16/25 02:50 03/16/25 02:59 Temperature Pulse Rate 69 69 72 Respiratory Rate 28 H 28 H 25 H Blood Pressure Pulse Oximetry 93 Oxygen Delivery Autopap Fraction of Inspired Oxygen 03/16/25 06:00 03/16/25 08:43 03/16/25 08:43 Temperature 98.8 F Pulse Rate 68 75 Respiratory Rate 20 20 Blood Pressure 155/77 H Pulse Oximetry 95 94 Oxygen Delivery Room Air Room Air Fraction of Inspired Oxygen 03/16/25 08:43 03/16/25 08:51 03/16/25 08:55 Temperature Pulse Rate 75 71 80 Respiratory Rate 20 20 Blood Pressure Pulse Oximetry Oxygen Delivery Fraction of Inspired Oxygen Intake/Output Intake/Output: Intake & Output 03/13/25 03/14/25 03/15/25 03/16/25 23:59 23:59 23:59 23:59 Intake Total 1710 1110 920 Balance 1710 1110 920 Meds/Results Medications: Active Medications Generic Name Dose Route Start Last Admin Trade Name Freq PRN Reason Stop Dose Admin Al Hydrox/Mg Hydrox/Simethicone 30 ml 03/05/25 20:52 Mag Hydrox/Al Hydrox/Simeth 30 Ml Udc PO Q6H PRN Indigestion Albuterol/Ipratropium 3 ml 03/06/25 09:25 03/16/25 08:41 Ipratropium 0.5 Mg/Albuterol Sulfate 2.5 Mg Ampul.Neb 3 Ml INHALATION 3 ml Q6HRT HEATHER Administration Apixaban 5 mg 03/08/25 21:00 03/16/25 08:55 Apixaban 5 Mg Tablet PO 5 mg Q12HR HEATHER Administration Aspirin 81 mg 03/06/25 08:00 03/16/25 08:56 Aspirin 81 Mg Chewable Tablet PO 81 mg DAILY@0800 HEATHER Administration Cyclobenzaprine HCl 5 mg 03/07/25 23:02 03/10/25 21:15 Cyclobenzaprine Hcl 5 Mg Tablet PO 5 mg Q8H PRN Administration Muscle Spasm Docusate Sodium 100 mg 03/05/25 20:52 Docusate Sodium 100 Mg Capsule PO Q12H PRN Constipation Empagliflozin 10 mg 03/15/25 09:00 03/16/25 08:55 Empagliflozin 10 Mg Tablet PO 10 mg DAILY HEATHER Administration Famotidine 40 mg 03/06/25 09:00 03/16/25 08:56 Famotidine 20 Mg Tablet PO 40 mg DAILY HEATHER Administration Losartan Potassium 100 mg 03/06/25 09:00 03/12/25 08:19 Losartan Potassium 100 Mg Tablet PO 100 mg On Hold: 03/12/25 13:42 DAILY HEATHER Administration Metoprolol Succinate 50 mg 03/10/25 09:00 03/16/25 08:55 Metoprolol Succinate Ext Rel 50 Mg Tabcr PO 50 mg QAM HEATHER Administration Nitroglycerin 0.4 mg 03/05/25 20:48 Nitroglycerin Sl 0.4 Mg Tablet SUBLINGUAL Q5MIN PRN Chest Pain Ondansetron HCl 4 mg 03/05/25 20:52 Ondansetron Inj 4 Mg/2 Ml Vial IV PUSH Q6H PRN Nausea And Vomiting Radiology Results: ITS Impressions Abdomen Ultrasound 03/06/25 15:38 IMPRESSION: 1. Limited study as above. 2. The visualized liver is heterogeneous likely due to fatty infiltration or hepatocellular disease. Consider a liver mass CT or MRI for further assessment. Abdomen MRI 03/11/25 08:07 IMPRESSION: 1. Diffuse hepatic steatosis with no hepatic masses or other focal hepatic lesions identified. Labs Labs: Laboratory Results - last 24 hr 03/16/25 05:20 WBC 6.6 RBC 5.02 Hgb 14.4 Hct 45.0 MCV 89.6 MCH 28.7 MCHC 32.0 RDW 14.1 Plt Count 156 MPV 10.4 Sodium 135 L Potassium 4.0 Chloride 97 L Carbon Dioxide 31 H Anion Gap 7 BUN 32 H Creatinine 1.44 H Estim Creat Clear Calc 74 Estimated GFR 51 L Glucose 113 H Calcium 9.0 Total Bilirubin 0.5 AST 29 ALT 41 Alkaline Phosphatase 73 NT-Pro-B Natriuret Pep 471 H Total Protein 7.3 Albumin 3.8 Quality VTE Prophylaxis VTE prophylaxis: pharmacologic ordered (Eliquis 5 mg b.i.d.) Hospitalist MIPS Advance Care Plan I have confirmed that the patient's Advanced Care Plan is present, code status is documented, or surrogate decision maker is listed in patient medical record.: Yes Medication Reconciliation I have utilized all available resources to obtain, update and review the patients current medications (includes all prescriptions, OTC, herbals, cannabis, and nutritional supplements).: Yes
[2025-03-16] MEDS: guaiFENesin 12 HR 600 MG TABCR PO (20:51)
[2025-03-17] VITALS (9 sets, daily range): BP systolic 133–142; BP diastolic 74–76; PULSE 64–82; RESP 20–35; TEMP 36.2–36.6; O2SAT 94–96
[2025-03-17] MEDS: IPRATROPIUM 0.5 MG/ALBUTEROL SULFATE 2.5 MG AMPUL.NEB 3 ML INHALATION ×3 (02:18→14:22)
[2025-03-17 05:50] LABS: Hematocrit 46.3 % (42.0-52.0); Hemoglobin 14.4 g/dL (14.0-18.0); Mean Corpuscular HGB Conc 31.1 g/dl (32-36); Mean Corpuscular Hemoglobin 28.3 pg (26-34); Mean Corpuscular Volume 91.1 fl (80-100); Platelet Count Result 143 k/mm3 (150-375); Red Blood Count 5.08 M/mm3 (4.6-6.20); White Blood Count 7.0 K/mm3 (4.5-10.0)
[2025-03-17 06:14] LABS: Alanine Aminotransferase 38 U/L (6-50); Albumin Level 3.8 g/dL (3.5-5.1); Alkaline Phosphatase 78 U/L (38-126); Anion Gap 6 mmol/L (4-12); Aspartate Amino Transferase 31 U/L (17-59); Bilirubin,Total 0.6 mg/dL (0.2-1.3); Blood Urea Nitrogen 29 mg/dL (9-20); Calcium 9.0 mg/dL (8.4-10.2); Carbon Dioxide 31 mmol/L (22-30); Chloride 98 mmol/L (98-107); Estimated CRCL calculation 72 ml/min; Estimated Glomerular Filt Rate 50; Glucose 104 mg/dL (65-110); Potassium 4.1 mmol/L (3.4-5.0); Sodium 135 mmol/L (137-145); Total Protein 7.1 g/dL (6.3-8.2)
[2025-03-17] MEDS: EMPAGLIFLOZIN 10 MG TABLET PO (08:41)
[2025-03-17] MEDS: APIXABAN 5 MG TABLET PO (08:41)
[2025-03-17] MEDS: ASPIRIN 81 MG CHEWABLE TABLET PO (08:41)
[2025-03-17] MEDS: METOPROLOL SUCCINATE EXT REL 50 MG TABCR PO (08:42)
[2025-03-17] MEDS: guaiFENesin 12 HR 600 MG TABCR PO (08:42)
[2025-03-17] MEDS: FAMOTIDINE 20 MG TABLET 40 MG PO (08:42)
--- NOTE | 2025-03-17 12:31 | PM.IMPN ---
Progress Note: A&P Assessment and Plan (1) CHF (congestive heart failure): Qualifiers: Heart failure chronicity: unspecified Heart failure type: unspecified Qualified Code(s): I50.9 - Heart failure, unspecified Code(s): I50.9 - Heart failure, unspecified Status: Acute Assessment and Plan: Presented with chest tightness, shortness of breath 2D echo shows EF 45% without wall motion abnormality Continue aspirin, Hold losartan 100 mg daily Continue metoprolol succinate 50 mg q.day Hold Lasix Daily standing weight, strict I&Os, na <2g daily keep mag>2 and K>4 Fluid restriction to 1500 cc daily (2) Elevated troponin: Code(s): R79.89 - Other specified abnormal findings of blood chemistry Status: Acute Assessment and Plan: Likely secondary to AFib RVR-demand mismatch No chest pain, on sinus rythm (3) Acute hypoxic respiratory failure: Code(s): J96.01 - Acute respiratory failure with hypoxia Status: Acute Assessment and Plan: On room air Not on Acute respiratory distress (4) Obstructive sleep apnea: Code(s): G47.33 - Obstructive sleep apnea (adult) (pediatric) Status: Acute Assessment and Plan: He has CPAP at home, encourage routine use Continue CPAP. (5) Essential hypertension: Code(s): I10 - Essential (primary) hypertension Status: Acute Assessment and Plan: BP goal<130/80 Hold losartan due to donald (6) DONALD (acute kidney injury): Code(s): N17.9 - Acute kidney failure, unspecified Status: Acute Assessment and Plan: Likely secondary to over-diuresis Will discuss with the quarantine officer to cut down with the diuresis Currently Lasix and losartan on hold Subjective Date/time seen: 03/17/25 12:31 Review of Systems Review of Systems: 12 systems were reviewed with pertinent positives and negatives per HPI. Except as documented in the HPI, all other systems were reviewed and are negative. Exam Narrative: APPEARANCE: No acute distress, morbidly obese, oral crowding EYES: EOMI HEENT: Normocephalic, atraumatic, OMM RESPIRATORY: Wheezing on auscultation bilaterally. CARDIOVASCULAR: RRR, S1 and S2 without murmurs rubs or gallops. ABDOMINAL: Protuberant, Soft, nontender, nondistended, no rebound or guarding MSK: Moves his extremity spontaneously. sit in the chair on exam. He has significant swelling in the leg bilaterally. NEURO: Awake and alert. Following commands, speech normal, no focal deficits SKIN:: Warm, dry. No rashes lesions or abrasions PSYCHIATRIC: Normal affect/mood, Const: Other: Obese, developmental delay Neck: Other: Short and thick neck Chest: Chest palpation & inspection: normal inspection of the chest and tenderness Resp: Auscultation: wheezes scattered wheezes Cardio: Jugular venous distension: no JVD Rate: regular rate Rhythm: regular rhythm GI: Auscultation: normal bowel sounds Extrem: Other: Bilateral lower extremity edema, reduce compared to yesterday, pitting 2+ Objective Data Vital Signs Vital Signs: Vital Signs - 24 hr 03/16/25 13:54 03/16/25 13:54 03/16/25 14:00 Temperature 98.5 F Pulse Rate 73 73 67 Respiratory Rate 20 20 20 Blood Pressure 152/68 H Pulse Oximetry 94 98 Oxygen Delivery Room Air 03/16/25 14:01 03/16/25 20:19 03/16/25 20:19 Temperature Pulse Rate 75 74 Respiratory Rate 20 18 Blood Pressure Pulse Oximetry 94 Oxygen Delivery Room Air 03/16/25 20:27 03/16/25 20:50 03/16/25 22:00 Temperature 98 F Pulse Rate 77 68 Respiratory Rate 18 18 Blood Pressure 115/55 L Pulse Oximetry 97 Oxygen Delivery Room Air 03/16/25 23:40 03/17/25 02:18 03/17/25 02:18 Temperature Pulse Rate 75 74 Respiratory Rate 30 H 35 H Blood Pressure Pulse Oximetry 94 Oxygen Delivery Autopap Autopap 03/17/25 02:27 03/17/25 05:19 03/17/25 08:42 Temperature 98 F Pulse Rate 79 64 68 Respiratory Rate 20 Blood Pressure 133/74 Pulse Oximetry 96 Oxygen Delivery 03/17/25 09:05 03/17/25 09:05 03/17/25 09:15 Temperature Pulse Rate 82 82 79 Respiratory Rate 20 20 20 Blood Pressure Pulse Oximetry 94 Oxygen Delivery Room Air Intake/Output Intake/Output: Intake & Output 03/14/25 03/15/25 03/16/25 03/17/25 23:59 23:59 23:59 23:59 Intake Total 1110 920 480 390 Balance 1110 920 480 390 Meds/Results Medications: Active Medications Generic Name Dose Route Start Last Admin Trade Name Freq PRN Reason Stop Dose Admin Al Hydrox/Mg Hydrox/Simethicone 30 ml 03/05/25 20:52 Mag Hydrox/Al Hydrox/Simeth 30 Ml Udc PO Q6H PRN Indigestion Albuterol/Ipratropium 3 ml 03/06/25 09:25 03/17/25 09:04 Ipratropium 0.5 Mg/Albuterol Sulfate 2.5 Mg Ampul.Neb 3 Ml INHALATION 3 ml Q6HRT HEATHER Administration Apixaban 5 mg 03/08/25 21:00 03/17/25 08:41 Apixaban 5 Mg Tablet PO 5 mg Q12HR HEATHER Administration Aspirin 81 mg 03/06/25 08:00 03/17/25 08:41 Aspirin 81 Mg Chewable Tablet PO 81 mg DAILY@0800 [facility] Administration Cyclobenzaprine HCl 5 mg 03/07/25 23:02 03/10/25 21:15 Cyclobenzaprine Hcl 5 Mg Tablet PO 5 mg Q8H PRN Administration Muscle Spasm Docusate Sodium 100 mg 03/05/25 20:52 Docusate Sodium 100 Mg Capsule PO Q12H PRN Constipation Empagliflozin 10 mg 03/15/25 09:00 03/17/25 08:41 Empagliflozin 10 Mg Tablet PO 10 mg DAILY HEATHER Administration Famotidine 40 mg 03/06/25 09:00 03/17/25 08:42 Famotidine 20 Mg Tablet PO 40 mg DAILY HEATHER Administration Guaifenesin 600 mg 03/16/25 21:00 03/17/25 08:42 Guaifenesin 12 Hr 600 Mg Tabcr PO 600 mg Q12HR HEATHER Administration Losartan Potassium 100 mg 03/06/25 09:00 03/12/25 08:19 Losartan Potassium 100 Mg Tablet PO 100 mg On Hold: 03/12/25 13:42 DAILY [facility] Administration Metoprolol Succinate 50 mg 03/10/25 09:00 03/17/25 08:42 Metoprolol Succinate Ext Rel 50 Mg Tabcr PO 50 mg QAM HEATHER Administration Nitroglycerin 0.4 mg 03/05/25 20:48 Nitroglycerin Sl 0.4 Mg Tablet SUBLINGUAL Q5MIN PRN Chest Pain Ondansetron HCl 4 mg 03/05/25 20:52 Ondansetron Inj 4 Mg/2 Ml Vial IV PUSH Q6H PRN Nausea And Vomiting Radiology Results: ITS Impressions Abdomen Ultrasound 03/06/25 15:38 IMPRESSION: 1. Limited study as above. 2. The visualized liver is heterogeneous likely due to fatty infiltration or hepatocellular disease. Consider a liver mass CT or MRI for further assessment. Abdomen MRI 03/11/25 08:07 IMPRESSION: 1. Diffuse hepatic steatosis with no hepatic masses or other focal hepatic lesions identified. Labs Labs: Laboratory Results - last 24 hr 03/17/25 04:45 WBC 7.0 RBC 5.08 Hgb 14.4 Hct 46.3 MCV 91.1 MCH 28.3 MCHC 31.1 L RDW 14.0 Plt Count 143 L MPV 10.6 H Sodium 135 L Potassium 4.1 Chloride 98 Carbon Dioxide 31 H Anion Gap 6 BUN 29 H Creatinine 1.47 H Estim Creat Clear Calc 72 Estimated GFR 50 L Glucose 104 Calcium 9.0 Total Bilirubin 0.6 AST 31 ALT 38 Alkaline Phosphatase 78 Total Protein 7.1 Albumin 3.8 Quality VTE Prophylaxis VTE prophylaxis: pharmacologic ordered (Eliquis 5 mg b.i.d.)
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
== END 2025-03-17 15:53 | disposition home or self-care (01) | DRG 291 ==
LOC: ANHED 19:16 → ANHIMU 21:00 → ANH3MED 03-09 16:58
PROVIDERS: Family Medicine; Nurse Practitioner Adult Health; Physician Assistant; Student in an Organized Health Care Education/Training Program; Admitting Provider Internal Medicine; Emergency Provider Student in an Organized Health Care Education/Training Program; PCP Family Medicine; Visit Provider General Practice
DX: I11.0 Hypertensive heart disease with heart failure (principal); I50.41 Acute combined systolic (congestive) and diastolic (congestive) heart failure; J96.01 Acute respiratory failure with hypoxia; Z68.41 Body mass index [BMI] 40.0-44.9, adult; I24.89 Other forms of acute ischemic heart disease; N17.9 Acute kidney failure, unspecified; I48.91 Unspecified atrial fibrillation; G47.33 Obstructive sleep apnea (adult) (pediatric); E66.01 Morbid (severe) obesity due to excess calories; F79 Unspecified intellectual disabilities; K21.9 Gastro-esophageal reflux disease without esophagitis
CPT/HCPCS: 36415; 74183; 76705; 80048; 80053; 80061; 80076; 83735; 83880; 84443; 84484; 85025; 85027; 85380; 85610; 85730; 86593; 86703; 87491; 87591; 87637; 93005; 94640; 94762; 96374; 97110; 97116; 97161; 97166; 97530; 97535; 99285; A9270; A9577; C8929; G0432; J1650; J1938; Q9957